=== PATIENT | male | born 1950 | race Caucasian/White ===

== ENCOUNTER 2018-08-03 16:05 | Inpatient (IN) | payer MEDICARE, OTHER ==
[~2018-08-03] VITALS: Ht 177.8 cm; Wt 83.7 kg
[~2018-08-03 16:05] MED LIST: PROPOFOL 10 MG/ML, 100ML IV ONE; PROPOFOL 10 MG/ML, 20ML ONE
--- NOTE | 2018-08-03 16:10 | NUR ---
ARRIVED BY CARE FLIGHT FROM THE SCENE POST ARREST AT APPOX 1430 W CPR STARTED RIGHT AWAY ALS CPR STARTED AT APPROX 1500 3 ROUNDS OF EPI PER ACLS THEN ROSC PT INTUBATED AND TRANSPORTED TO [facility] PT HAD BEEN HIKING WITH FAMILY NO CARDIAC HX NOTED ON ARRIVAL TO THE ED
[2018-08-03] MEDS ORDERED: SODIUM CHLORIDE 0.9% 1,000 ML IV ONE (16:18)
[2018-08-03] MEDS ORDERED: SODIUM CHLORIDE FLUSH 10ML SYR IVF ONE (16:30)
[2018-08-03] MEDS ORDERED: VECURONIUM 10 MG IVPush ONE (16:30)
[2018-08-03] MEDS ORDERED: VECURONIUM 10 MG ONE (16:39)
[2018-08-03 16:41] LABS: MEAN CORPUSCULAR HEMOGLOBIN 30.9 pg (27.5-34.5); MEAN CORPUSCULAR HGB CONC 33.4 g/dL (33.2-36.2); MEAN CORPUSCULAR VOLUME 92.7 fL (81-97); MEAN PLATELET VOLUME 8.2 fL (7.4-10.4); PLATELET COUNT 223 x10^3/uL (130-400); RED BLOOD COUNT 4.95 x10^6/uL (4.38-5.82); RED CELL DISTRIBUTION WIDTH 13.5 % (9.4-14.8)
[2018-08-03 16:49] LABS: INTERNATIONAL NORMALIZED RATIO 1.11 (0.93-1.1); PROTHROMBIN TIME 11.5 Seconds (9.6-11.5)
[2018-08-03 16:51] LABS: ALANINE AMINOTRANSFERASE 467 U/L (12-78); ALBUMIN 3.2 g/dL (3.4-5.0); ANION GAP 11 mmol/L (5-15); CALCIUM 7.7 mg/dL (8.5-10.1); CHLORIDE 114 mmol/L (98-107)
[2018-08-03 16:56] LABS: ALKALINE PHOSPHATASE 70 U/L (45-117); BILIRUBIN,TOTAL 0.7 mg/dL (0.2-1.0); CREATININE 1.24 mg/dL (0.7-1.3); TOTAL PROTEIN 5.7 g/dL (6.4-8.2)
[2018-08-03] MEDS ORDERED: ONDANSETRON ODT 4 MG PO PRN (17:00)
[2018-08-03] MEDS ORDERED: ACETAMINOPHEN 325 MG TABLET PO PRN (17:00)
[2018-08-03] MEDS ORDERED: LABETALOL 5MG/ML, 20ML IVPush PRN ×2 (17:00→18:30)
[2018-08-03] MEDS ORDERED: POLYETHYLENE GLYCOL 17 GM PACKET PO PRN (17:00)
[2018-08-03] MEDS ORDERED: morphine SULFATE 10 MG/ML, 1ML IVPush PRN (17:00)
[2018-08-03] MEDS ORDERED: ENALAPRILAT 1.25 MG/ML, 2ML IVPush PRN (17:00)
[2018-08-03] MEDS ORDERED: ENOXAPARIN 40 MG/0.4 ML SQ SCH (17:00)
[2018-08-03] MEDS ORDERED: PROPOFOL 10 MG/ML, 20ML IVPush ONE (17:00)
[2018-08-03] MEDS ORDERED: PROPOFOL 100 ML IV SCH (17:00)
[2018-08-03] MEDS ORDERED: ONDANSETRON 2MG/ML, 2ML IVPush PRN (17:00)
--- NOTE | 2018-08-03 17:00 | NUR ---
ERP TO THE BS ON PT ARRIVAL PT PLACED ON VENT ON ARRIVAL SLIGHT POSTURING NOTED MULTI IVS STARTED AND THE L LEG IO DCD TEMP GALLARDO AND NG PLACED
--- NOTE | 2018-08-03 17:00 | NUR ---
PT TAKEN TO CT AND TRANSPORTED TO THE CCU AT APPROX 1700 WITH RESP PT REMAINE D WITH ROSC THROUGHOUT
[2018-08-03 17:02] LABS: MD YES
[2018-08-03 17:04] LABS: <PLATELET ESTIMATE> ADEQUATE; <PLT MORPHOLOGY> NORMAL PLT MORPH; <RBC MORPHOLOGY> NORMAL; BAND#(MANUAL) 2.65 x10^3/uL; BANDS%(MANUAL) 12 % (0-7); EOS#(MANUAL) 0.22 x10^3/uL (0.0-0.4); EOS% (MANUAL) 1 % (1-7); LYMPH#(MANUAL) 1.33 x10^3/uL (1-3.4); LYMPHS% (MANUAL) 6 % (22-44); SEGS% (MANUAL) 81 % (42-75)
[2018-08-03 17:25] LABS: THYROID STIMULATING HORMONE 7.71 mIU/L (0.358-3.740)
[2018-08-03] MEDS ORDERED: VECURONIUM 50 MG in SODIUM CHLORIDE 0.9% 250 ML IV PRN (18:08)
[2018-08-03] MEDS: VECURONIUM 10 MG IVPush PRN (18:15)
[2018-08-03] MEDS ORDERED: PHARMACY MAY ADJ FOR RENAL FX MC SCH (18:30)
[2018-08-03] MEDS ORDERED: SODIUM CHLORIDE 0.9% 1,000 ML IV SCH (18:30)
[2018-08-03] MEDS ORDERED: LIDOCAINE-MPF 1%, 2ML ENDO PRN (18:30)
[2018-08-03] MEDS: SODIUM CHLORIDE 0.9% 1,000 ML IV SCH (18:53)
[2018-08-03] MEDS: KSCALE TO 4.0 IV SCH (20:00)
[2018-08-03] MEDS: AMPICILLIN/SULBACTAM 3 GM in SODIUM CHLORIDE 0.9% 100 ML IV SCH ×2 (20:20→23:41)
[2018-08-03] MEDS: BUSPIRONE 10 MG TABLET PO SCH (20:38)
[2018-08-03] MEDS: FAMOTIDINE 20 MG/2 ML IVPush SCH (21:10)
[2018-08-03] MEDS: PROPOFOL 100 ML IV PRN (21:29)
[2018-08-03] MEDS ORDERED: POTASSIUM CHLORIDE PMX 100 ML IV ONE (21:30)
[2018-08-03] MEDS: NOREPINEPHRINE 4 MG in SODIUM CHLORIDE 0.9% 246 ML IV PRN (21:43)
[2018-08-03] MEDS: CALCIUM CHLORIDE 13.6 MEQ in DEXTROSE 5% 100 ML IV PRN (22:36)
[2018-08-04] MEDS: FENTANYL PF 2,500 MCG in SODIUM CHLORIDE 0.9% 200 ML IV PRN (00:23)
[2018-08-04] MEDS: ARTIFICIAL TEARS OINT 3.5 GM EACHEYE SCH ×4 (00:24→20:22)
[2018-08-04] MEDS: NOREPINEPHRINE 4 MG in SODIUM CHLORIDE 0.9% 246 ML IV PRN (02:13)
[2018-08-04] MEDS: VECURONIUM 10 MG IVPush PRN ×5 (03:29→20:15)
[2018-08-04] MEDS: PROPOFOL 100 ML IV PRN ×5 (03:35→22:09)
[2018-08-04] MEDS: KSCALE TO 4.0 IV SCH ×6 (04:00→20:00)
[2018-08-04 04:17] LABS: MEAN CORPUSCULAR HEMOGLOBIN 31.3 pg (27.5-34.5); MEAN CORPUSCULAR VOLUME 92.1 fL (81-97); MEAN PLATELET VOLUME 8.4 fL (7.4-10.4); PLATELET COUNT 249 x10^3/uL (130-400); RED BLOOD COUNT 5.01 x10^6/uL (4.38-5.82); RED CELL DISTRIBUTION WIDTH 13.3 % (9.4-14.8)
[2018-08-04 04:25] LABS: MD YES
[2018-08-04 04:26] LABS: ALANINE AMINOTRANSFERASE 371 U/L (12-78); ALBUMIN 3.1 g/dL (3.4-5.0); ANION GAP 13 mmol/L (5-15); CALCIUM 8.3 mg/dL (8.5-10.1); CHLORIDE 115 mmol/L (98-107); CHOLESTEROL, TOTAL 139 mg/dL (140-239); CREATININE 0.88 mg/dL (0.7-1.3)
[2018-08-04 04:30] LABS: <PLATELET ESTIMATE> ADEQUATE; <RBC MORPHOLOGY> NORMAL; BAND#(MANUAL) 0.97 x10^3/uL; BANDS%(MANUAL) 7 % (0-7); LYMPH#(MANUAL) 1.93 x10^3/uL (1-3.4); LYMPHS% (MANUAL) 14 % (22-44); MONOS#(MANUAL) 0.97 x10^3/uL (0.3-2.7); MONOS% (MANUAL) 7 % (2-9); SEG#(MANUAL) 9.94 x10^3/uL (1.8-6.8); SEGS% (MANUAL) 72 % (42-75)
[2018-08-04 04:31] LABS: <PLT MORPHOLOGY> NORMAL PLT MORPH; ALKALINE PHOSPHATASE 56 U/L (45-117); BILIRUBIN,TOTAL 0.8 mg/dL (0.2-1.0); CHOL/HDL RATIO 3.6; HDL CHOL % 28 % (26-37); HDL CHOLESTEROL (DIRECT) 39 mg/dL (40-60); LDL CHOLESTEROL,CALCULATED 73 mg/dL (54-169); LDL/HDL RATIO 1.9 (0.5-3.0); TOTAL PROTEIN 5.6 g/dL (6.4-8.2); TRIGLYCERIDES 137 mg/dL (50-200); VLDL CHOLESTEROL 27 mg/dL (0-25)
[2018-08-04] MEDS: BUSPIRONE 10 MG TABLET PO SCH ×3 (04:36→20:22)
[2018-08-04] MEDS: AMPICILLIN/SULBACTAM 3 GM in SODIUM CHLORIDE 0.9% 100 ML IV SCH ×4 (04:55→23:17)
[2018-08-04] MEDS: SODIUM CHLORIDE 0.9% 1,000 ML IV SCH (05:47)
[2018-08-04] MEDS: CALCIUM CHLORIDE 13.6 MEQ in DEXTROSE 5% 100 ML IV PRN ×2 (05:47→23:16)
[2018-08-04] MEDS ORDERED: HEPARIN 25,000 UNITS/500ML PMX 500 ML IV PRN (08:00)
[2018-08-04] MEDS ORDERED: HEPARIN 5,000 UNITS/ML, 1ML IV ONE ×2 (08:00→09:00)
[2018-08-04] MEDS ORDERED: HEPARIN 5,000 UNITS/ML, 1ML IV PRN (08:00)
[2018-08-04] MEDS: SENNA/DOCUSATE TABLET PO SCH (08:41)
[2018-08-04] MEDS: FAMOTIDINE 20 MG/2 ML IVPush SCH ×2 (08:54→20:22)
[2018-08-04] MEDS: ASPIRIN 325 MG TABLET PO SCH (08:55)
[2018-08-04] MEDS: HEPARIN 25,000 UNITS/500ML PMX 500 ML IV PRN (08:58)
[2018-08-04] MEDS: SODIUM CHLORIDE 0.45% 1,000 ML IV SCH ×2 (08:59→22:15)
[2018-08-04] MEDS: NOREPINEPHRINE 8 MG in SODIUM CHLORIDE 0.9% 242 ML IV PRN ×3 (11:20→23:38)
[2018-08-04 12:10] LABS: HEMOGLOBIN A1C 6.1 % (4.2-6.3)
[2018-08-04 12:31] LABS: FREE T4 (FREE THYROXINE) 1.28 ng/dL (0.76-1.46)
[2018-08-04] MEDS ORDERED: VASOPRESSIN 100 UNIT in SODIUM CHLORIDE 0.9% 495 ML IV PRN (15:00)
[2018-08-04] MEDS ORDERED: SODIUM CHLORIDE 0.9%, 500ML IVBOLUS ONE ×3 (15:00→21:30)
[2018-08-04] MEDS: MAGNESIUM SULFATE 1 GM in SODIUM CHLORIDE 0.9% 50 ML IV PRN (17:21)
[2018-08-04] MEDS: ATORVASTATIN 40 MG TABLET PO SCH (20:22)
[2018-08-05] MEDS: VECURONIUM 10 MG IVPush PRN ×2 (00:18→06:44)
[2018-08-05] MEDS: KSCALE TO 4.0 IV SCH ×6 (00:21→20:00)
[2018-08-05] MEDS: MAGNESIUM SULFATE 1 GM in SODIUM CHLORIDE 0.9% 50 ML IV PRN (00:40)
[2018-08-05] MEDS: FENTANYL PF 2,500 MCG in SODIUM CHLORIDE 0.9% 200 ML IV PRN (00:54)
[2018-08-05] MEDS: PROPOFOL 100 ML IV PRN ×2 (01:53→05:37)
[2018-08-05] MEDS: BUSPIRONE 10 MG TABLET PO SCH ×4 (04:20→20:38)
[2018-08-05] MEDS: ARTIFICIAL TEARS OINT 3.5 GM EACHEYE SCH ×3 (04:20→20:00)
[2018-08-05] MEDS: AMPICILLIN/SULBACTAM 3 GM in SODIUM CHLORIDE 0.9% 100 ML IV SCH ×4 (04:21→23:48)
[2018-08-05 04:25] LABS: BASOPHILS % (AUTO) 0 % (0-1); EOSINOPHILS % (AUTO) 0 % (1-7); LYMPHOCYTES % (AUTO) 5 % (22-44); MD NO; MEAN CORPUSCULAR HEMOGLOBIN 31.5 pg (27.5-34.5); MEAN CORPUSCULAR HGB CONC 34.1 g/dL (33.2-36.2); MEAN CORPUSCULAR VOLUME 92.5 fL (81-97); MEAN PLATELET VOLUME 8.8 fL (7.4-10.4); MONOCYTES # (AUTO) 0.91 x10^3/uL (0.2-0.8); MONOCYTES % (AUTO) 8 % (2-9); NEUTROPHILS # (AUTO) 10.24 x10^3/uL (1.8-6.8); NEUTROPHILS % (AUTO) 87 % (42-75); PLATELET COUNT 203 x10^3/uL (130-400); RED BLOOD COUNT 4.77 x10^6/uL (4.38-5.82); RED CELL DISTRIBUTION WIDTH 13.3 % (9.4-14.8)
[2018-08-05 04:26] LABS: ANION GAP 11 mmol/L (5-15); CALCIUM 8.4 mg/dL (8.5-10.1); CHLORIDE 115 mmol/L (98-107)
[2018-08-05] MEDS: CALCIUM CHLORIDE 13.6 MEQ in DEXTROSE 5% 100 ML IV PRN (05:01)
[2018-08-05] MEDS: ASPIRIN 325 MG TABLET PO SCH (05:37)
[2018-08-05] MEDS: NOREPINEPHRINE 8 MG in SODIUM CHLORIDE 0.9% 242 ML IV PRN ×2 (05:38→11:52)
[2018-08-05] MEDS: SENNA/DOCUSATE TABLET PO SCH (08:47)
[2018-08-05] MEDS: FAMOTIDINE 20 MG/2 ML IVPush SCH ×2 (08:47→20:39)
[2018-08-05] MEDS: SODIUM ACETATE 75 MEQ in SODIUM CHLORIDE 0.45% 1,000 ML IV SCH ×2 (08:47→23:47)
[2018-08-05] MEDS: HEPARIN 25,000 UNITS/500ML PMX 500 ML IV PRN (11:55)
[2018-08-05] MEDS ORDERED: MAGNESIUM SULFATE 1 GM in SODIUM CHLORIDE 0.9% 50 ML IV ONE (13:30)
[2018-08-05] MEDS ORDERED: MAGNESIUM SULFATE PMX 1GM/100ML IVPB ONE (13:30)
[2018-08-05] MEDS: LORazepam 2 MG/ML, 1ML IVPush PRN ×2 (16:46→20:39)
[2018-08-05] MEDS: LIDODERM 5% PATCH TD SCH (17:04)
[2018-08-05] MEDS: FENTANYL PF 100 MCG/2ML IVPush PRN ×2 (18:11→22:36)
[2018-08-05] MEDS: OXYcodone IR 5MG TABLET PO PRN (19:46)
[2018-08-05] MEDS: ATORVASTATIN 40 MG TABLET PO SCH (20:39)
[2018-08-05] MEDS ORDERED: AMIODARONE 150 MG in DEXTROSE 5% 100 ML IV ONE (22:00)
[2018-08-05] MEDS ORDERED: SODIUM CHLORIDE 0.9%, 250ML IVBOLUS PRN (22:30)
[2018-08-05] MEDS: DEXMEDETOMIDINE 200 MCG in SODIUM CHLORIDE 0.9% 48 ML IV PRN (22:55)
[2018-08-06] MEDS ORDERED: AMIODARONE 150 MG in DEXTROSE 5% 100 ML IV ONE
[2018-08-06] MEDS: AMIODARONE 900 MG in DEXTROSE 5% 482 ML IV PRN ×2 (00:52→23:39)
[2018-08-06] MEDS: LORazepam 2 MG/ML, 1ML IVPush PRN (00:52)
[2018-08-06] MEDS: SODIUM ACETATE 75 MEQ in SODIUM CHLORIDE 0.45% 1,000 ML IV SCH (01:10)
[2018-08-06 04:29] LABS: BASOPHILS % (AUTO) 0 % (0-1); EOSINOPHILS % (AUTO) 0 % (1-7); LYMPHOCYTES # (AUTO) 0.35 x10^3/uL (1-3.4); LYMPHOCYTES % (AUTO) 4 % (22-44); MD NO; MEAN CORPUSCULAR HEMOGLOBIN 31.9 pg (27.5-34.5); MEAN CORPUSCULAR HGB CONC 34.5 g/dL (33.2-36.2); MEAN CORPUSCULAR VOLUME 92.3 fL (81-97); MEAN PLATELET VOLUME 9.2 fL (7.4-10.4); MONOCYTES # (AUTO) 0.32 x10^3/uL (0.2-0.8); MONOCYTES % (AUTO) 4 % (2-9); NEUTROPHILS # (AUTO) 7.68 x10^3/uL (1.8-6.8); NEUTROPHILS % (AUTO) 92 % (42-75); PLATELET COUNT 146 x10^3/uL (130-400); RED BLOOD COUNT 3.91 x10^6/uL (4.38-5.82); RED CELL DISTRIBUTION WIDTH 13.6 % (9.4-14.8)
[2018-08-06] MEDS ORDERED: SODIUM CHLORIDE 0.9%, 500ML IVBOLUS ONE (04:30)
[2018-08-06 04:39] LABS: ANION GAP 9 mmol/L (5-15); CALCIUM 7.8 mg/dL (8.5-10.1); CHLORIDE 113 mmol/L (98-107); TRIGLYCERIDES 91 mg/dL (50-200)
[2018-08-06] MEDS: ASPIRIN 325 MG TABLET PO SCH (05:12)
[2018-08-06] MEDS: AMPICILLIN/SULBACTAM 3 GM in SODIUM CHLORIDE 0.9% 100 ML IV SCH ×4 (05:12→23:06)
[2018-08-06] MEDS: HEPARIN 5,000 UNITS/ML, 1ML IV PRN ×3 (06:45→20:57)
[2018-08-06] MEDS ORDERED: FUROSEMIDE 20 MG/2 ML IV ONE (08:30)
[2018-08-06] MEDS: DEXMEDETOMIDINE 200 MCG in SODIUM CHLORIDE 0.9% 48 ML IV PRN (09:57)
[2018-08-06] MEDS: PANTOPRAZOLE 40 MG IV IVPush SCH (10:13)
[2018-08-06] MEDS: SENNA/DOCUSATE TABLET PO SCH (10:15)
[2018-08-06] MEDS: OXYcodone IR 5MG TABLET PO SCH ×3 (10:15→20:47)
[2018-08-06] MEDS: FENTANYL PF 100 MCG/2ML IVPush PRN ×3 (10:26→19:38)
[2018-08-06] MEDS ORDERED: MIDAZOLAM 1 MG/ML, 5ML ONE (11:31)
[2018-08-06] MEDS ORDERED: GADOBUTROL 10 MMOL/10 ML PFS ONE (12:48)
[2018-08-06] MEDS: HEPARIN 25,000 UNITS/500ML PMX 500 ML IV PRN (15:42)
[2018-08-06] MEDS: ATORVASTATIN 40 MG TABLET PO SCH (20:47)
[2018-08-06] MEDS: LIDODERM 5% PATCH TD SCH (20:51)
[2018-08-06] MEDS ORDERED: LORazepam 2 MG/ML, 1ML IVPush PRN (22:30)
[2018-08-06] MEDS ORDERED: FUROSEMIDE 40 MG/4 ML IV ONE (23:30)
[2018-08-06] MEDS ORDERED: FUROSEMIDE 40 MG/4 ML ONE (23:32)
[2018-08-07] MEDS ORDERED: MIDAZOLAM 1 MG/ML, 5ML ONE
[2018-08-07] MEDS ORDERED: PROPOFOL 10 MG/ML, 100ML IV ONE
[2018-08-07] MEDS ORDERED: ETOMIDATE 40 MG/20 ML ONE
[2018-08-07] MEDS: PROPOFOL 100 ML IV PRN ×2 (02:28→17:38)
[2018-08-07] MEDS: OXYcodone IR 5MG TABLET PO SCH ×2 (03:00→08:21)
[2018-08-07 03:58] LABS: BASOPHILS # (AUTO) 0.02 x10^3/uL (0-0.1); BASOPHILS % (AUTO) 0 % (0-1); EOSINOPHILS % (AUTO) 0 % (1-7); LYMPHOCYTES # (AUTO) 0.68 x10^3/uL (1-3.4); LYMPHOCYTES % (AUTO) 7 % (22-44); MD NO; MEAN CORPUSCULAR HEMOGLOBIN 31.8 pg (27.5-34.5); MEAN CORPUSCULAR HGB CONC 34.7 g/dL (33.2-36.2); MEAN CORPUSCULAR VOLUME 91.8 fL (81-97); MEAN PLATELET VOLUME 8.8 fL (7.4-10.4); MONOCYTES # (AUTO) 0.44 x10^3/uL (0.2-0.8); MONOCYTES % (AUTO) 4 % (2-9); NEUTROPHILS # (AUTO) 8.96 x10^3/uL (1.8-6.8); NEUTROPHILS % (AUTO) 89 % (42-75); PLATELET COUNT 167 x10^3/uL (130-400); RED BLOOD COUNT 3.84 x10^6/uL (4.38-5.82); RED CELL DISTRIBUTION WIDTH 13.8 % (9.4-14.8)
[2018-08-07 04:10] LABS: ALANINE AMINOTRANSFERASE 474 U/L (12-78); ALBUMIN 2.5 g/dL (3.4-5.0); ANION GAP 10 mmol/L (5-15); CALCIUM 7.9 mg/dL (8.5-10.1); CHLORIDE 109 mmol/L (98-107); CREATININE 1.11 mg/dL (0.7-1.3)
[2018-08-07 04:12] LABS: ALKALINE PHOSPHATASE 52 U/L (45-117); BILIRUBIN,TOTAL 1.3 mg/dL (0.2-1.0); TOTAL PROTEIN 5.3 g/dL (6.4-8.2)
[2018-08-07] MEDS: HEPARIN 5,000 UNITS/ML, 1ML IV PRN ×3 (04:30→18:20)
[2018-08-07] MEDS: AMPICILLIN/SULBACTAM 3 GM in SODIUM CHLORIDE 0.9% 100 ML IV SCH ×4 (04:51→23:33)
[2018-08-07] MEDS: ASPIRIN 325 MG TABLET PO SCH (06:28)
[2018-08-07] MEDS: KSCALE TO 4.0 IV SCH ×3 (07:30→19:30)
[2018-08-07] MEDS ORDERED: AMIODARONE 50 MG/ML, 3ML IVPush ONE (07:30)
[2018-08-07] MEDS ORDERED: AMIODARONE 150 MG in DEXTROSE 5% 100 ML IV ONE (08:00)
[2018-08-07] MEDS: FUROSEMIDE 20 MG/2 ML IV SCH ×2 (08:21→17:01)
[2018-08-07] MEDS: SENNA/DOCUSATE TABLET PO SCH (08:21)
[2018-08-07] MEDS: PANTOPRAZOLE 40 MG IV IVPush SCH (08:21)
[2018-08-07] MEDS ORDERED: POTASSIUM CHLORIDE PMX 100 ML IV ONE ×2 (09:00→15:30)
--- NOTE | 2018-08-07 09:39 | NUR ---
08/07 TF GOAL: w/ propofol: PROMOTE @ 70ML/HR off propofol: PROMOTE @ 80ML/HR
[2018-08-07] MEDS: HEPARIN 25,000 UNITS/500ML PMX 500 ML IV PRN (10:14)
[2018-08-07] MEDS: FENTANYL PF 100 MCG/2ML IVPush PRN ×7 (14:00→23:32)
[2018-08-07] MEDS: QUETIAPINE 25MG TABLET PO SCH ×2 (15:09→20:51)
[2018-08-07] MEDS: OXYcodone IR 5MG TABLET PO PRN (15:21)
[2018-08-07] MEDS: LIDODERM 5% PATCH TD SCH (19:55)
[2018-08-07] MEDS: ATORVASTATIN 40 MG TABLET PO SCH (20:50)
[2018-08-07] MEDS ORDERED: POTASSIUM CHLORIDE PMX 100 ML IVPB SCH (21:30)
[2018-08-08] MEDS: KSCALE TO 4.0 IV SCH ×4 (01:30→19:30)
[2018-08-08] MEDS: HEPARIN 25,000 UNITS/500ML PMX 500 ML IV PRN ×2 (02:18→15:53)
[2018-08-08] MEDS ORDERED: POTASSIUM CHLORIDE PMX 100 ML IV ONE ×4 (02:30→18:00)
[2018-08-08 04:51] LABS: BASOPHILS # (AUTO) 0.01 x10^3/uL (0-0.1); BASOPHILS % (AUTO) 0 % (0-1); EOSINOPHILS # (AUTO) 0.05 x10^3/uL (0-0.4); EOSINOPHILS % (AUTO) 1 % (1-7); LYMPHOCYTES # (AUTO) 0.76 x10^3/uL (1-3.4); LYMPHOCYTES % (AUTO) 9 % (22-44); MD NO; MEAN CORPUSCULAR HEMOGLOBIN 32.1 pg (27.5-34.5); MEAN CORPUSCULAR HGB CONC 34.6 g/dL (33.2-36.2); MEAN CORPUSCULAR VOLUME 92.7 fL (81-97); MEAN PLATELET VOLUME 8.7 fL (7.4-10.4); MONOCYTES # (AUTO) 0.73 x10^3/uL (0.2-0.8); MONOCYTES % (AUTO) 9 % (2-9); NEUTROPHILS # (AUTO) 6.79 x10^3/uL (1.8-6.8); NEUTROPHILS % (AUTO) 81 % (42-75); PLATELET COUNT 144 x10^3/uL (130-400); RED BLOOD COUNT 3.37 x10^6/uL (4.38-5.82); RED CELL DISTRIBUTION WIDTH 13.7 % (9.4-14.8)
[2018-08-08 05:06] LABS: CHLORIDE 109 mmol/L (98-107)
[2018-08-08 05:11] LABS: ALANINE AMINOTRANSFERASE 289 U/L (12-78); ALBUMIN 2.2 g/dL (3.4-5.0); ALKALINE PHOSPHATASE 46 U/L (45-117); ANION GAP 8 mmol/L (5-15); BILIRUBIN,TOTAL 1.2 mg/dL (0.2-1.0); CALCIUM 7.7 mg/dL (8.5-10.1); CREATININE 0.84 mg/dL (0.7-1.3); TOTAL PROTEIN 4.9 g/dL (6.4-8.2)
[2018-08-08] MEDS: AMPICILLIN/SULBACTAM 3 GM in SODIUM CHLORIDE 0.9% 100 ML IV SCH (05:15)
[2018-08-08] MEDS: PROPOFOL 100 ML IV PRN (05:43)
[2018-08-08] MEDS: ASPIRIN 325 MG TABLET PO SCH (05:43)
[2018-08-08] MEDS: FUROSEMIDE 20 MG/2 ML IV SCH ×2 (07:41→15:54)
[2018-08-08] MEDS: PANTOPRAZOLE 40 MG IV IVPush SCH (07:41)
[2018-08-08] MEDS: FILTER 0.22 MICRON FOR AMIODARONE IV PRN (07:42)
[2018-08-08] MEDS: SENNA/DOCUSATE TABLET PO SCH (07:42)
[2018-08-08] MEDS: HEPARIN 5,000 UNITS/ML, 1ML IV PRN (07:42)
[2018-08-08] MEDS: QUETIAPINE 25MG TABLET PO SCH ×2 (07:42→15:54)
[2018-08-08] MEDS: AMIODARONE 900 MG in DEXTROSE 5% 482 ML IV PRN (07:43)
[2018-08-08] MEDS ORDERED: POTASSIUM PHOSPHATE 44 MEQ in SODIUM CHLORIDE 0.9% 500 ML IV ONE (09:00)
[2018-08-08] MEDS: DEXMEDETOMIDINE 200 MCG in SODIUM CHLORIDE 0.9% 48 ML IV PRN ×3 (10:42→23:30)
[2018-08-08] MEDS: DIGOXIN 0.125 MG TABLET PO SCH (10:42)
[2018-08-08] MEDS: PIPERACILLIN/TAZO/PMX 3.375GM 50 ML IV SCH ×3 (11:38→23:27)
[2018-08-08] MEDS: FENTANYL PF 100 MCG/2ML IVPush PRN ×2 (12:03→15:55)
[2018-08-08] MEDS: OXYcodone IR 5MG TABLET PO PRN ×3 (12:04→20:45)
[2018-08-08] MEDS: LIDODERM 5% PATCH TD SCH (19:59)
[2018-08-08] MEDS: ATORVASTATIN 40 MG TABLET PO SCH (20:45)
[2018-08-09] MEDS: QUETIAPINE 25MG TABLET PO SCH ×3 (00:54→17:20)
[2018-08-09] MEDS: KSCALE TO 4.0 IV SCH ×3 (01:30→18:00)
[2018-08-09] MEDS ORDERED: POTASSIUM CHLORIDE PMX 100 ML IV ONE ×4 (02:00→19:30)
[2018-08-09] MEDS: OXYcodone IR 5MG TABLET PO PRN ×3 (02:30→21:01)
[2018-08-09 04:00] VITALS: BP 83/61
[2018-08-09] MEDS: PIPERACILLIN/TAZO/PMX 3.375GM 50 ML IV SCH ×4 (05:07→23:23)
[2018-08-09] MEDS: FENTANYL PF 100 MCG/2ML IVPush PRN (05:07)
[2018-08-09] MEDS: HEPARIN 25,000 UNITS/500ML PMX 500 ML IV PRN ×2 (05:16→17:22)
[2018-08-09 05:23] LABS: BASOPHILS # (AUTO) 0.01 x10^3/uL (0-0.1); BASOPHILS % (AUTO) 0 % (0-1); EOSINOPHILS # (AUTO) 0.14 x10^3/uL (0-0.4); EOSINOPHILS % (AUTO) 2 % (1-7); LYMPHOCYTES # (AUTO) 0.73 x10^3/uL (1-3.4); LYMPHOCYTES % (AUTO) 10 % (22-44); MD NO; MEAN CORPUSCULAR HEMOGLOBIN 30.7 pg (27.5-34.5); MEAN CORPUSCULAR VOLUME 92.9 fL (81-97); MONOCYTES # (AUTO) 0.87 x10^3/uL (0.2-0.8); MONOCYTES % (AUTO) 12 % (2-9); NEUTROPHILS # (AUTO) 5.33 x10^3/uL (1.8-6.8); NEUTROPHILS % (AUTO) 75 % (42-75); PLATELET COUNT 128 x10^3/uL (130-400); RED BLOOD COUNT 3.29 x10^6/uL (4.38-5.82); RED CELL DISTRIBUTION WIDTH 13.7 % (9.4-14.8)
[2018-08-09 05:34] LABS: ALANINE AMINOTRANSFERASE 330 U/L (12-78); ALBUMIN 2.1 g/dL (3.4-5.0); ANION GAP 7 mmol/L (5-15); CALCIUM 7.9 mg/dL (8.5-10.1); CHLORIDE 107 mmol/L (98-107); CREATININE 0.99 mg/dL (0.7-1.3)
[2018-08-09] MEDS: HEPARIN 5,000 UNITS/ML, 1ML IV PRN (05:38)
[2018-08-09 05:39] LABS: ALKALINE PHOSPHATASE 55 U/L (45-117); BILIRUBIN,TOTAL 1.3 mg/dL (0.2-1.0); TOTAL PROTEIN 4.9 g/dL (6.4-8.2)
[2018-08-09] MEDS: ASPIRIN 325 MG TABLET PO SCH (05:43)
[2018-08-09] MEDS: PANTOPRAZOLE 40 MG IV IVPush SCH (08:27)
[2018-08-09] MEDS: FUROSEMIDE 20 MG/2 ML IV SCH ×2 (08:27→17:20)
[2018-08-09] MEDS: DIGOXIN 0.125 MG TABLET PO SCH (08:28)
[2018-08-09] MEDS: SENNA/DOCUSATE TABLET PO SCH (08:28)
[2018-08-09] MEDS ORDERED: ALBUMIN HUMAN 25% 100 ML ONE (10:34)
[2018-08-09] MEDS ORDERED: FUROSEMIDE 20 MG/2 ML ONE (10:34)
[2018-08-09] MEDS: ALBUMIN HUMAN 25% 100 ML IV SCH (10:45)
[2018-08-09] MEDS: AMIODARONE 900 MG in DEXTROSE 5% 482 ML IV PRN (10:45)
[2018-08-09] MEDS: DEXMEDETOMIDINE 200 MCG in SODIUM CHLORIDE 0.9% 48 ML IV PRN (10:56)
[2018-08-09] MEDS ORDERED: ALBUMIN HUMAN 25% 12.5 GM/50 ML IV ONE (11:00)
[2018-08-09] MEDS ORDERED: ALBUMIN HUMAN 25% 100 ML IV ONE (11:00)
[2018-08-09] MEDS ORDERED: FUROSEMIDE 20 MG/2 ML IV ONE (11:30)
[2018-08-09] MEDS: LIDODERM 5% PATCH TD SCH (19:38)
[2018-08-09] MEDS: ATORVASTATIN 40 MG TABLET PO SCH (20:51)
[2018-08-10] MEDS: QUETIAPINE 25MG TABLET PO SCH ×3 (00:33→17:20)
[2018-08-10] MEDS: FENTANYL PF 100 MCG/2ML IVPush PRN (00:38)
[2018-08-10] MEDS ORDERED: POTASSIUM CHLORIDE PMX 100 ML IV ONE ×2 (01:00→06:00)
[2018-08-10] MEDS: PIPERACILLIN/TAZO/PMX 3.375GM 50 ML IV SCH ×4 (05:22→23:42)
[2018-08-10 05:30] LABS: ANION GAP 8 mmol/L (5-15); CALCIUM 8.3 mg/dL (8.5-10.1); CHLORIDE 104 mmol/L (98-107)
[2018-08-10 05:31] LABS: CREATININE 1.02 mg/dL (0.7-1.3); TRIGLYCERIDES 99 mg/dL (50-200)
[2018-08-10 05:35] LABS: BASOPHILS # (AUTO) 0.05 x10^3/uL (0-0.1); BASOPHILS % (AUTO) 1 % (0-1); EOSINOPHILS # (AUTO) 0.08 x10^3/uL (0-0.4); EOSINOPHILS % (AUTO) 1 % (1-7); LYMPHOCYTES # (AUTO) 0.61 x10^3/uL (1-3.4); LYMPHOCYTES % (AUTO) 7 % (22-44); MD NO; MEAN CORPUSCULAR HEMOGLOBIN 30.6 pg (27.5-34.5); MEAN CORPUSCULAR HGB CONC 32.9 g/dL (33.2-36.2); MEAN CORPUSCULAR VOLUME 93.2 fL (81-97); MEAN PLATELET VOLUME 8.8 fL (7.4-10.4); MONOCYTES # (AUTO) 1.17 x10^3/uL (0.2-0.8); MONOCYTES % (AUTO) 14 % (2-9); NEUTROPHILS # (AUTO) 6.37 x10^3/uL (1.8-6.8); NEUTROPHILS % (AUTO) 77 % (42-75); PLATELET COUNT 130 x10^3/uL (130-400); RED BLOOD COUNT 3.27 x10^6/uL (4.38-5.82); RED CELL DISTRIBUTION WIDTH 13.7 % (9.4-14.8)
[2018-08-10] MEDS: HEPARIN 25,000 UNITS/500ML PMX 500 ML IV PRN ×2 (05:48→17:23)
[2018-08-10] MEDS: HEPARIN 5,000 UNITS/ML, 1ML IV PRN (05:49)
[2018-08-10] MEDS: KSCALE TO 4.0 IV SCH ×2 (06:00)
[2018-08-10] MEDS: ASPIRIN 325 MG TABLET PO SCH (06:23)
[2018-08-10] MEDS: ALBUMIN HUMAN 25% 100 ML IV SCH ×2 (07:30→16:33)
[2018-08-10] MEDS: FUROSEMIDE 20 MG/2 ML IV SCH ×2 (08:06→17:19)
[2018-08-10] MEDS: PANTOPRAZOLE 40 MG IV IVPush SCH (08:06)
[2018-08-10] MEDS: SENNA/DOCUSATE TABLET PO SCH (08:06)
[2018-08-10] MEDS: DIGOXIN 0.125 MG TABLET PO SCH (08:07)
[2018-08-10] MEDS: CARVEDILOL 3.125 MG TABLET PO SCH ×2 (09:00→17:20)
--- NOTE | 2018-08-10 13:29 | NUR ---
[employer] Recommend: CHOPPED/ THINS -Straws OK -Small sips/ bites -Chin down -Up at 90 degrees -Float meds [place] sheet posted for diet recommendations Addendum: 08/10/18 at [address] Amended: Links added.
[2018-08-10] MEDS: AMIODARONE 900 MG in DEXTROSE 5% 482 ML IV PRN (15:37)
[2018-08-10] MEDS: LIDODERM 5% PATCH TD SCH (20:00)
[2018-08-10] MEDS: ATORVASTATIN 40 MG TABLET PO SCH (20:32)
[2018-08-11] MEDS: QUETIAPINE 25MG TABLET PO SCH (01:08)
[2018-08-11 04:24] LABS: BASOPHILS # (AUTO) 0.03 x10^3/uL (0-0.1); BASOPHILS % (AUTO) 0 % (0-1); EOSINOPHILS # (AUTO) 0.09 x10^3/uL (0-0.4); EOSINOPHILS % (AUTO) 1 % (1-7); LYMPHOCYTES # (AUTO) 0.53 x10^3/uL (1-3.4); LYMPHOCYTES % (AUTO) 5 % (22-44); MD NO; MEAN CORPUSCULAR HEMOGLOBIN 31.9 pg (27.5-34.5); MEAN CORPUSCULAR VOLUME 93.9 fL (81-97); MEAN PLATELET VOLUME 8.2 fL (7.4-10.4); MONOCYTES # (AUTO) 1.18 x10^3/uL (0.2-0.8); MONOCYTES % (AUTO) 11 % (2-9); NEUTROPHILS % (AUTO) 83 % (42-75); PLATELET COUNT 165 x10^3/uL (130-400); RED BLOOD COUNT 3.05 x10^6/uL (4.38-5.82); RED CELL DISTRIBUTION WIDTH 13.3 % (9.4-14.8)
[2018-08-11 04:35] LABS: ALANINE AMINOTRANSFERASE 368 U/L (12-78); ALBUMIN 2.8 g/dL (3.4-5.0); ANION GAP 5 mmol/L (5-15); CALCIUM 8.2 mg/dL (8.5-10.1); CHLORIDE 102 mmol/L (98-107); CREATININE 1.04 mg/dL (0.7-1.3)
[2018-08-11 04:38] LABS: ALKALINE PHOSPHATASE 46 U/L (45-117); BILIRUBIN,TOTAL 1.7 mg/dL (0.2-1.0); TOTAL PROTEIN 5.3 g/dL (6.4-8.2)
[2018-08-11] MEDS: HEPARIN 5,000 UNITS/ML, 1ML IV PRN (05:14)
[2018-08-11] MEDS: HEPARIN 25,000 UNITS/500ML PMX 500 ML IV PRN ×2 (05:14→16:38)
[2018-08-11] MEDS: PIPERACILLIN/TAZO/PMX 3.375GM 50 ML IV SCH ×3 (05:17→17:02)
[2018-08-11] MEDS: CARVEDILOL 3.125 MG TABLET PO SCH ×2 (05:23→17:01)
[2018-08-11] MEDS: ASPIRIN 325 MG TABLET PO SCH (05:23)
[2018-08-11] MEDS ORDERED: POTASSIUM CHLORIDE 10% 40 MEQ/30 ML UDC PO ONE (06:30)
[2018-08-11] MEDS: SENNA/DOCUSATE TABLET PO SCH (07:37)
[2018-08-11] MEDS: ALBUMIN HUMAN 25% 100 ML IV SCH ×2 (07:37→15:53)
[2018-08-11] MEDS: FUROSEMIDE 20 MG/2 ML IV SCH ×2 (08:53→17:02)
[2018-08-11] MEDS: DIGOXIN 0.125 MG TABLET PO SCH (08:54)
[2018-08-11] MEDS: PANTOPRAZOLE 40 MG IV IVPush SCH (08:54)
[2018-08-11] MEDS ORDERED: QUETIAPINE 25MG TABLET PO SCH (13:00)
[2018-08-11] MEDS ORDERED: DEXMEDETOMIDINE 1,000 MCG in SODIUM CHLORIDE 0.9% 240 ML IV PRN (15:30)
[2018-08-11] MEDS ORDERED: SODIUM CHLORIDE 0.9% 1,000ML IVBOLUS ONE ×2 (15:30→23:00)
[2018-08-11] MEDS: LIDODERM 5% PATCH TD SCH (20:00)
[2018-08-11] MEDS: ATORVASTATIN 40 MG TABLET PO SCH (20:15)
[2018-08-11] MEDS ORDERED: SODIUM CHLORIDE 0.9%, 500ML IVBOLUS ONE (22:00)
[2018-08-12] VITALS (15 sets, daily range): BP systolic 62–150; BP diastolic 20–85
[2018-08-12] MEDS: PIPERACILLIN/TAZO/PMX 3.375GM 50 ML IV SCH ×2 (00:14→05:42)
[2018-08-12] MEDS: AMIODARONE 900 MG in DEXTROSE 5% 482 ML IV PRN (00:15)
[2018-08-12] MEDS ORDERED: NOREPINEPHRINE 1 MG/ML, 4ML ONE (02:07)
[2018-08-12 02:45] LABS: MEAN CORPUSCULAR HEMOGLOBIN 31.4 pg (27.5-34.5); MEAN CORPUSCULAR HGB CONC 33.4 g/dL (33.2-36.2); MEAN CORPUSCULAR VOLUME 93.9 fL (81-97); MEAN PLATELET VOLUME 9.4 fL (7.4-10.4); PLATELET COUNT 170 x10^3/uL (130-400); RED BLOOD COUNT 1.67 x10^6/uL (4.38-5.82); RED CELL DISTRIBUTION WIDTH 13.7 % (9.4-14.8)
[2018-08-12 02:52] LABS: ALANINE AMINOTRANSFERASE 270 U/L (12-78); ALBUMIN 2.4 g/dL (3.4-5.0); ANION GAP 24 mmol/L (5-15); CALCIUM 7.1 mg/dL (8.5-10.1); CHLORIDE 103 mmol/L (98-107); CREATININE 1.78 mg/dL (0.7-1.3)
[2018-08-12 02:54] LABS: ALKALINE PHOSPHATASE 38 U/L (45-117); TOTAL PROTEIN 4.3 g/dL (6.4-8.2)
[2018-08-12] MEDS ORDERED: PROTAMINE SULFATE 10 MG/ML, 5ML IVPush ONE (03:00)
[2018-08-12 03:08] LABS: MD YES
[2018-08-12 03:10] LABS: ANISOCYTOSIS 1+; LYMPH#(MANUAL) 2.27 x10^3/uL (1-3.4); LYMPHS% (MANUAL) 16 % (22-44); MONOS#(MANUAL) 1.14 x10^3/uL (0.3-2.7); MONOS% (MANUAL) 8 % (2-9); POLYCHROMASIA 1+; SEG#(MANUAL) 10.79 x10^3/uL (1.8-6.8); SEGS% (MANUAL) 76 % (42-75)
[2018-08-12 03:11] LABS: <PLATELET ESTIMATE> ADEQUATE; <PLT MORPHOLOGY> NORMAL PLT MORPH; HYPOCHROMIA 1+
[2018-08-12] MEDS ORDERED: SODIUM BICARB 8.4%, 50ML SYRINGE ONE ×2 (03:12→04:05)
[2018-08-12 03:20] LABS: INTERNATIONAL NORMALIZED RATIO 2.02 (0.93-1.1); PROTHROMBIN TIME 20.8 Seconds (9.6-11.5)
[2018-08-12] MEDS ORDERED: PANTOPRAZOLE 40 MG IV IVPush ONE (03:30)
[2018-08-12] MEDS ORDERED: SENNOSIDES 8.8 MG/5 ML ORAL SOL NG PRN (03:30)
[2018-08-12] MEDS ORDERED: BISACODYL 10 MG SUPP PR PRN (03:30)
[2018-08-12] MEDS ORDERED: LACTULOSE 20 GM/30 ML UDC NG PRN (03:30)
[2018-08-12] MEDS ORDERED: LIDOCAINE-MPF 1%, 2ML ENDO PRN (03:30)
[2018-08-12] MEDS ORDERED: PHARMACY MAY ADJ FOR RENAL FX MC SCH (03:30)
[2018-08-12] MEDS ORDERED: SENNA/DOCUSATE TABLET NG PRN (03:30)
[2018-08-12 03:40] LABS: PARTIAL THROMBOPLASTIN TIME > 153 Seconds (25-31)
[2018-08-12] MEDS ORDERED: PROPOFOL 100 ML IV ONE ×2 (03:51→12:40)
[2018-08-12] MEDS ORDERED: VASOPRESSIN 50 UNIT in SODIUM CHLORIDE 0.9% 247.5 ML IV PRN (04:00)
[2018-08-12] MEDS ORDERED: EPINEPHRINE 2 MG in SODIUM CHLORIDE 0.9% 248 ML IV PRN (04:00)
[2018-08-12] MEDS ORDERED: SODIUM BICARB 8.4%, 50ML SYRINGE IVPush ONE (04:00)
[2018-08-12] MEDS ORDERED: VECURONIUM 10 MG ONE (04:09)
[2018-08-12] MEDS: FENTANYL PF 100 MCG/2ML IVPush PRN (04:12)
[2018-08-12] MEDS: PANTOPRAZOLE 80 MG in SODIUM CHLORIDE 0.9% 100 ML IV SCH ×2 (04:16→13:49)
[2018-08-12] MEDS: SODIUM BICARBONATE 8.4% 150 MEQ in DEXTROSE 5% 1,000 ML IV SCH ×3 (04:16→20:52)
[2018-08-12] MEDS ORDERED: FENTANYL PF 100 MCG/2ML IV ONE (04:30)
[2018-08-12] MEDS ORDERED: SODIUM BICARBONATE 1 MEQ/ML, 50ML VIAL IVPush ONE (04:30)
[2018-08-12] MEDS ORDERED: VECURONIUM 10 MG IVPush ONE (04:30)
[2018-08-12] MEDS ORDERED: FENTANYL PF 2,500 MCG in SODIUM CHLORIDE 0.9% 200 ML IV PRN (04:30)
[2018-08-12 04:35] LABS: ALBUMIN 2.1 g/dL (3.4-5.0); ANION GAP 23 mmol/L (5-15); CHLORIDE 103 mmol/L (98-107)
[2018-08-12 04:42] LABS: MEAN CORPUSCULAR HEMOGLOBIN 31.2 pg (27.5-34.5); MEAN CORPUSCULAR HGB CONC 33.9 g/dL (33.2-36.2); MEAN CORPUSCULAR VOLUME 91.9 fL (81-97); RED CELL DISTRIBUTION WIDTH 16.4 % (9.4-14.8)
[2018-08-12 04:43] LABS: CALCIUM 6.5 mg/dL (8.5-10.1)
[2018-08-12 04:44] LABS: ALANINE AMINOTRANSFERASE 938 U/L (12-78); ALKALINE PHOSPHATASE 47 U/L (45-117); BILIRUBIN,TOTAL 2.9 mg/dL (0.2-1.0); TOTAL PROTEIN 3.6 g/dL (6.4-8.2)
[2018-08-12] MEDS ORDERED: VECURONIUM 50 MG in SODIUM CHLORIDE 0.9% 250 ML IV PRN (05:00)
[2018-08-12] MEDS ORDERED: HEPARIN 1,000 UNITS/ML, 30ML ONE (05:28)
[2018-08-12] MEDS ORDERED: HEPARIN 1,000 UNITS/ML, 10ML ONE ×2 (05:28→05:29)
[2018-08-12] MEDS ORDERED: PROTAMINE SULFATE 10 MG/ML, 5ML ONE ×2 (05:29→06:46)
[2018-08-12] MEDS ORDERED: THROMBIN 5,000 UNIT VIAL TP ONE (05:30)
[2018-08-12] MEDS ORDERED: BACITRACIN 50,000 UNIT ONE (05:30)
[2018-08-12 05:46] LABS: MD YES; MEAN PLATELET VOLUME 9.4 fL (7.4-10.4); PLATELET COUNT 145 x10^3/uL (130-400)
[2018-08-12 05:51] LABS: BAND#(MANUAL) 0.39 x10^3/uL; BANDS%(MANUAL) 2 % (0-7); EOS#(MANUAL) 0.19 x10^3/uL (0.0-0.4); EOS% (MANUAL) 1 % (1-7); LYMPH#(MANUAL) 2.13 x10^3/uL (1-3.4); LYMPHS% (MANUAL) 11 % (22-44); METAMYELOCYTES# (MANUAL) 0.19 x10^3/uL (0-0); METAMYELOCYTES% (MANUAL) 1 % (0-1); MONOS#(MANUAL) 1.36 x10^3/uL (0.3-2.7); MONOS% (MANUAL) 7 % (2-9); NRBC % (MANUAL) 4 % (0-1); SEG#(MANUAL) 15.13 x10^3/uL (1.8-6.8); SEGS% (MANUAL) 78 % (42-75)
[2018-08-12 05:52] LABS: <PLATELET ESTIMATE> ADEQUATE; ANISOCYTOSIS 1+; GIANT PLATELETS 1+; LARGE PLATELETS 1+; POLYCHROMASIA 1+
[2018-08-12] MEDS: EPINEPHRINE 4 MG in SODIUM CHLORIDE 0.9% 246 ML IV PRN ×2 (05:57→22:43)
[2018-08-12 05:59] LABS: MEAN CORPUSCULAR HEMOGLOBIN 31.6 pg (27.5-34.5); MEAN CORPUSCULAR HGB CONC 35.4 g/dL (33.2-36.2); MEAN CORPUSCULAR VOLUME 89.2 fL (81-97); MEAN PLATELET VOLUME 9.2 fL (7.4-10.4); PLATELET COUNT 103 x10^3/uL (130-400); RED BLOOD COUNT 2.62 x10^6/uL (4.38-5.82); RED CELL DISTRIBUTION WIDTH 16.2 % (9.4-14.8)
[2018-08-12] MEDS ORDERED: CALCIUM GLUCONATE 4.6 MEQ in SODIUM CHLORIDE 0.9% 50 ML IV ONE (06:00)
[2018-08-12] MEDS: CARVEDILOL 3.125 MG TABLET PO SCH ×2 (06:00→17:11)
[2018-08-12] MEDS: ASPIRIN 325 MG TABLET PO SCH (06:00)
[2018-08-12] MEDS ORDERED: CALCIUM GLUCONATE 0.46MEQ/1ML IVPush ONE (06:00)
[2018-08-12 06:14] LABS: INTERNATIONAL NORMALIZED RATIO 1.58 (0.93-1.1); PROTHROMBIN TIME 16.5 Seconds (9.6-11.5)
[2018-08-12 06:29] LABS: MD YES
[2018-08-12 06:30] LABS: BAND#(MANUAL) 0.52 x10^3/uL; BANDS%(MANUAL) 3 % (0-7); LYMPHS% (MANUAL) 4 % (22-44)
[2018-08-12 06:31] LABS: ANISOCYTOSIS 1+; MONOS#(MANUAL) 1.04 x10^3/uL (0.3-2.7); MONOS% (MANUAL) 6 % (2-9); POLYCHROMASIA 1+; SEG#(MANUAL) 15.14 x10^3/uL (1.8-6.8); SEGS% (MANUAL) 87 % (42-75)
[2018-08-12 06:32] LABS: <PLATELET ESTIMATE> DECREASED; LARGE PLATELETS 1+
[2018-08-12] MEDS ORDERED: EPINEPHRINE 1 MG/ML, 1ML ONE (06:46)
[2018-08-12] MEDS ORDERED: DEXTROSE 5%, 250ML ONE (06:46)
[2018-08-12] MEDS ORDERED: VASOPRESSIN 20 UNIT/ML, 1ML ONE (06:46)
[2018-08-12] MEDS ORDERED: CODE BLUE RESPONSE XX ONE (06:46)
[2018-08-12] MEDS ORDERED: SODIUM CHLORIDE 0.9%, 250ML ONE (06:46)
[2018-08-12] MEDS ORDERED: EPINEPHRINE SYRINGE 0.1 MG/ML, 10ML ONE ×2 (06:46→10:35)
[2018-08-12] MEDS: ALBUMIN HUMAN 25% 100 ML IV SCH (07:00)
[2018-08-12] MEDS: SENNA/DOCUSATE TABLET PO SCH (09:00)
[2018-08-12] MEDS: DIGOXIN 0.125 MG TABLET PO SCH (09:00)
[2018-08-12] MEDS ORDERED: PANTOPROZOLE 40MG TABLET PO SCH (09:00)
[2018-08-12] MEDS ORDERED: ATROPINE SYRINGE 0.1 MG/ML, 10ML ONE (10:35)
[2018-08-12] MEDS ORDERED: ARTIFICIAL TEARS OINT 3.5 GM EACHEYE PRN (16:00)
[2018-08-12] MEDS ORDERED: SODIUM CHLORIDE 0.9% 1,000ML IVBOLUS ONE (19:00)
[2018-08-12] MEDS: LIDODERM 5% PATCH TD SCH (20:00)
[2018-08-13] MEDS ORDERED: PROPOFOL 100 ML IV ONE (00:05)
[2018-08-13] MEDS: PANTOPRAZOLE 80 MG in SODIUM CHLORIDE 0.9% 100 ML IV SCH (00:36)
[2018-08-13] MEDS: PROPOFOL 100 ML IV PRN ×2 (01:37→09:34)
[2018-08-13] MEDS: SODIUM BICARBONATE 8.4% 150 MEQ in DEXTROSE 5% 1,000 ML IV SCH (04:25)
[2018-08-13 04:35] LABS: ANION GAP 14 mmol/L (5-15); BASOPHILS # (AUTO) 0.05 x10^3/uL (0-0.1); BASOPHILS % (AUTO) 0 % (0-1); CALCIUM 6.6 mg/dL (8.5-10.1); CHLORIDE 96 mmol/L (98-107); EOSINOPHILS # (AUTO) 0.03 x10^3/uL (0-0.4); EOSINOPHILS % (AUTO) 0 % (1-7); LYMPHOCYTES # (AUTO) 0.58 x10^3/uL (1-3.4); LYMPHOCYTES % (AUTO) 4 % (22-44); MD NO; MEAN CORPUSCULAR HEMOGLOBIN 31.1 pg (27.5-34.5); MEAN CORPUSCULAR HGB CONC 35.1 g/dL (33.2-36.2); MEAN CORPUSCULAR VOLUME 88.6 fL (81-97); MEAN PLATELET VOLUME 9.5 fL (7.4-10.4); MONOCYTES % (AUTO) 3 % (2-9); NEUTROPHILS # (AUTO) 12.41 x10^3/uL (1.8-6.8); NEUTROPHILS % (AUTO) 92 % (42-75); PLATELET COUNT 115 x10^3/uL (130-400); RED BLOOD COUNT 3.51 x10^6/uL (4.38-5.82); RED CELL DISTRIBUTION WIDTH 16.4 % (9.4-14.8)
[2018-08-13 04:36] LABS: CREATININE 3.49 mg/dL (0.7-1.3)
[2018-08-13] MEDS: CARVEDILOL 3.125 MG TABLET PO SCH ×2 (06:00→18:03)
[2018-08-13] MEDS: ASPIRIN 325 MG TABLET PO SCH (06:00)
[2018-08-13] MEDS ORDERED: MAGNESIUM SULFATE PMX 2GM/50ML 50 ML IV ONE (08:00)
[2018-08-13] MEDS: CALCIUM CARBONATE 500 MG TAB.CHEW PO SCH ×2 (08:37→16:53)
[2018-08-13] MEDS: SENNA/DOCUSATE TABLET PO SCH (08:37)
[2018-08-13] MEDS: SODIUM CHLORIDE 0.9% 1,000 ML IV SCH (09:01)
[2018-08-13] MEDS ORDERED: NOREPINEPHRINE 1 MG/ML, 4ML ONE (09:37)
[2018-08-13] MEDS ORDERED: HEPARIN 1,000 UNITS/ML, 30ML ONE (09:39)
[2018-08-13 09:55] LABS: INTERNATIONAL NORMALIZED RATIO 1.39 (0.93-1.1); PROTHROMBIN TIME 14.5 Seconds (9.6-11.5)
[2018-08-13] MEDS ORDERED: THROMBIN 5,000 UNIT VIAL TP ONE ×3 (10:14→10:25)
[2018-08-13] MEDS ORDERED: ROCURONIUM 10MG/ML,5ML ONE ×2 (10:36)
[2018-08-13] MEDS ORDERED: CALCIUM CHLORIDE 10%, 10ML SYR ONE (10:37)
[2018-08-13] MEDS ORDERED: MIDAZOLAM 1 MG/ML, 2ML ONE (10:47)
[2018-08-13] MEDS ORDERED: FENTANYL PF 100 MCG/2ML ONE (10:47)
[2018-08-13 13:39] LABS: CALCIUM 6.7 mg/dL (8.5-10.1)
[2018-08-13 13:50] LABS: ABSOLUTE RETICS # 0.115 x10^6/uL (0.5-1.5); RED BLOOD COUNT 3.82 x10^6/uL (4.38-5.82); RETICULOCYTE COUNT % 3.02 % (0.5-1.5)
[2018-08-13] MEDS: FENTANYL PF 100 MCG/2ML IVPush PRN (22:51)
[2018-08-14] MEDS: CALCIUM CARBONATE 500 MG TAB.CHEW PO SCH ×3 (00:20→16:58)
[2018-08-14] MEDS: SODIUM CHLORIDE 0.9% 1,000 ML IV SCH ×2 (00:21→13:11)
[2018-08-14] MEDS: FENTANYL PF 100 MCG/2ML IVPush PRN ×3 (00:37→23:59)
[2018-08-14 04:44] LABS: BASOPHILS # (AUTO) 0.12 x10^3/uL (0-0.1); BASOPHILS % (AUTO) 1 % (0-1); EOSINOPHILS # (AUTO) 0.03 x10^3/uL (0-0.4); EOSINOPHILS % (AUTO) 0 % (1-7); LYMPHOCYTES # (AUTO) 0.44 x10^3/uL (1-3.4); LYMPHOCYTES % (AUTO) 3 % (22-44); MD NO; MEAN CORPUSCULAR HEMOGLOBIN 30.4 pg (27.5-34.5); MEAN CORPUSCULAR HGB CONC 33.8 g/dL (33.2-36.2); MEAN CORPUSCULAR VOLUME 89.7 fL (81-97); MEAN PLATELET VOLUME 9.7 fL (7.4-10.4); MONOCYTES # (AUTO) 0.88 x10^3/uL (0.2-0.8); MONOCYTES % (AUTO) 6 % (2-9); NEUTROPHILS # (AUTO) 14.28 x10^3/uL (1.8-6.8); NEUTROPHILS % (AUTO) 91 % (42-75); PLATELET COUNT 181 x10^3/uL (130-400); RED BLOOD COUNT 3.75 x10^6/uL (4.38-5.82); RED CELL DISTRIBUTION WIDTH 16.4 % (9.4-14.8)
[2018-08-14 04:45] LABS: ANION GAP 11 mmol/L (5-15); CALCIUM 6.5 mg/dL (8.5-10.1); CHLORIDE 103 mmol/L (98-107)
[2018-08-14 04:50] LABS: ALANINE AMINOTRANSFERASE 980 U/L (12-78); ALKALINE PHOSPHATASE 48 U/L (45-117); BILIRUBIN,TOTAL 2.8 mg/dL (0.2-1.0); CREATININE 4.28 mg/dL (0.7-1.3); TOTAL PROTEIN 4.2 g/dL (6.4-8.2)
[2018-08-14] MEDS: ASPIRIN 325 MG TABLET PO SCH (05:39)
[2018-08-14] MEDS: CARVEDILOL 3.125 MG TABLET PO SCH ×2 (05:44→16:58)
[2018-08-14] MEDS: SENNA/DOCUSATE TABLET PO SCH (09:14)
[2018-08-15] MEDS: SODIUM CHLORIDE 0.9% 1,000 ML IV SCH ×2 (02:22→15:00)
[2018-08-15 04:17] LABS: BASOPHILS # (AUTO) 0.17 x10^3/uL (0-0.1); BASOPHILS % (AUTO) 1 % (0-1); EOSINOPHILS # (AUTO) 0.03 x10^3/uL (0-0.4); EOSINOPHILS % (AUTO) 0 % (1-7); LYMPHOCYTES % (AUTO) 2 % (22-44); MD NO; MEAN CORPUSCULAR HEMOGLOBIN 30.5 pg (27.5-34.5); MEAN CORPUSCULAR VOLUME 89.8 fL (81-97); MONOCYTES # (AUTO) 1.14 x10^3/uL (0.2-0.8); MONOCYTES % (AUTO) 7 % (2-9); NEUTROPHILS # (AUTO) 15.58 x10^3/uL (1.8-6.8); NEUTROPHILS % (AUTO) 90 % (42-75); PLATELET COUNT 249 x10^3/uL (130-400); RED CELL DISTRIBUTION WIDTH 16.1 % (9.4-14.8)
[2018-08-15 04:28] LABS: ALANINE AMINOTRANSFERASE 764 U/L (12-78); ANION GAP 14 mmol/L (5-15); CALCIUM 7.6 mg/dL (8.5-10.1); CHLORIDE 102 mmol/L (98-107); CREATININE 4.97 mg/dL (0.7-1.3)
[2018-08-15 04:31] LABS: ALKALINE PHOSPHATASE 64 U/L (45-117); BILIRUBIN,TOTAL 2.9 mg/dL (0.2-1.0); TOTAL PROTEIN 4.7 g/dL (6.4-8.2); TRIGLYCERIDES 181 mg/dL (50-200)
[2018-08-15] MEDS: ASPIRIN 325 MG TABLET PO SCH (05:36)
[2018-08-15] MEDS: CARVEDILOL 3.125 MG TABLET PO SCH ×2 (05:37→18:37)
[2018-08-15] MEDS ORDERED: AMIODARONE 150 MG in DEXTROSE 5% 100 ML IV ONE (06:00)
[2018-08-15] MEDS: FILTER 0.22 MICRON FOR AMIODARONE IV PRN (06:00)
[2018-08-15] MEDS: AMIODARONE 900 MG in DEXTROSE 5% 482 ML IV PRN (06:00)
[2018-08-15 07:17] LABS: MICROSCOPIC INDICATED
[2018-08-15 07:31] LABS: CREATININE,URINE RANDOM 64.8 mg/dL
[2018-08-15] MEDS: SENNA/DOCUSATE TABLET PO SCH (09:33)
[2018-08-15] MEDS: CALCIUM CARBONATE 500 MG TAB.CHEW PO SCH ×4 (09:33→23:43)
[2018-08-15] MEDS: ERGOCALCIFEROL 50,000 UNIT CAPSULE PO SCH (15:03)
[2018-08-15] MEDS: OXYcodone IR 5MG TABLET PO PRN (20:31)
[2018-08-16] MEDS: SODIUM CHLORIDE 0.9% 1,000 ML IV SCH (04:18)
[2018-08-16] MEDS: AMIODARONE 900 MG in DEXTROSE 5% 482 ML IV PRN (04:18)
[2018-08-16] MEDS: FILTER 0.22 MICRON FOR AMIODARONE IV PRN (04:18)
[2018-08-16 04:54] LABS: BASOPHILS # (AUTO) 0.01 x10^3/uL (0-0.1); BASOPHILS % (AUTO) 0 % (0-1); EOSINOPHILS # (AUTO) 0.15 x10^3/uL (0-0.4); EOSINOPHILS % (AUTO) 1 % (1-7); LYMPHOCYTES # (AUTO) 0.54 x10^3/uL (1-3.4); LYMPHOCYTES % (AUTO) 4 % (22-44); MD NO; MEAN CORPUSCULAR HEMOGLOBIN 30.7 pg (27.5-34.5); MEAN CORPUSCULAR VOLUME 90.1 fL (81-97); MEAN PLATELET VOLUME 8.8 fL (7.4-10.4); MONOCYTES # (AUTO) 1.38 x10^3/uL (0.2-0.8); MONOCYTES % (AUTO) 9 % (2-9); NEUTROPHILS # (AUTO) 12.92 x10^3/uL (1.8-6.8); NEUTROPHILS % (AUTO) 86 % (42-75); PLATELET COUNT 285 x10^3/uL (130-400); RED BLOOD COUNT 3.73 x10^6/uL (4.38-5.82); RED CELL DISTRIBUTION WIDTH 15.8 % (9.4-14.8)
[2018-08-16 05:06] LABS: CHLORIDE 97 mmol/L (98-107)
[2018-08-16 05:15] LABS: ALANINE AMINOTRANSFERASE 454 U/L (12-78); ALKALINE PHOSPHATASE 60 U/L (45-117); ANION GAP 15 mmol/L (5-15); BILIRUBIN,TOTAL 2.8 mg/dL (0.2-1.0); CALCIUM 7.6 mg/dL (8.5-10.1); CREATININE 5.35 mg/dL (0.7-1.3); TOTAL PROTEIN 4.6 g/dL (6.4-8.2)
[2018-08-16] MEDS: ASPIRIN 325 MG TABLET PO SCH (06:06)
[2018-08-16] MEDS: SENNA/DOCUSATE TABLET PO SCH (08:17)
[2018-08-16] MEDS: CALCIUM CARBONATE 500 MG TAB.CHEW PO SCH (08:17)
[2018-08-16] MEDS: CARVEDILOL 3.125 MG TABLET PO SCH ×2 (09:49→18:01)
[2018-08-16] MEDS: CALCIUM CARBONATE 500 MG/5 ML PO SCH ×2 (11:00→16:35)
[2018-08-16] MEDS ORDERED: ALBUTEROL SULFATE 2.5 MG/3 ML NPPB SCH (12:00)
[2018-08-16] MEDS: AMIODARONE 200 MG TABLET PO SCH ×2 (13:44→20:53)
[2018-08-16] MEDS: ALBUTEROL SULFATE 2.5 MG/3 ML NPPB SCH (20:35)
[2018-08-17 08:06] LABS: BASOPHILS # (AUTO) 0.09 x10^3/uL (0-0.1); BASOPHILS % (AUTO) 1 % (0-1); EOSINOPHILS # (AUTO) 0.29 x10^3/uL (0-0.4); EOSINOPHILS % (AUTO) 2 % (1-7); LYMPHOCYTES # (AUTO) 0.54 x10^3/uL (1-3.4); LYMPHOCYTES % (AUTO) 4 % (22-44); MD NO; MEAN CORPUSCULAR HEMOGLOBIN 30.5 pg (27.5-34.5); MEAN CORPUSCULAR HGB CONC 33.9 g/dL (33.2-36.2); MEAN CORPUSCULAR VOLUME 89.7 fL (81-97); MEAN PLATELET VOLUME 8.5 fL (7.4-10.4); MONOCYTES # (AUTO) 1.28 x10^3/uL (0.2-0.8); MONOCYTES % (AUTO) 9 % (2-9); NEUTROPHILS # (AUTO) 11.94 x10^3/uL (1.8-6.8); NEUTROPHILS % (AUTO) 84 % (42-75); PLATELET COUNT 292 x10^3/uL (130-400); RED BLOOD COUNT 3.85 x10^6/uL (4.38-5.82); RED CELL DISTRIBUTION WIDTH 15.9 % (9.4-14.8)
[2018-08-17 08:16] LABS: CHLORIDE 96 mmol/L (98-107)
[2018-08-17 08:17] LABS: ALBUMIN 2.1 g/dL (3.4-5.0); ANION GAP 12 mmol/L (5-15); CALCIUM 7.8 mg/dL (8.5-10.1)
[2018-08-17 08:20] LABS: ALANINE AMINOTRANSFERASE 306 U/L (12-78); ALKALINE PHOSPHATASE 67 U/L (45-117); BILIRUBIN,TOTAL 2.5 mg/dL (0.2-1.0); CREATININE 5.65 mg/dL (0.7-1.3); TOTAL PROTEIN 4.9 g/dL (6.4-8.2)
[2018-08-17] MEDS: AMIODARONE 200 MG TABLET PO SCH ×2 (08:49→21:07)
[2018-08-17] MEDS: ASPIRIN 325 MG TABLET PO SCH (08:49)
[2018-08-17] MEDS: SENNA/DOCUSATE TABLET PO SCH (08:49)
[2018-08-17] MEDS: CARVEDILOL 3.125 MG TABLET PO SCH ×2 (08:49→17:50)
[2018-08-17] MEDS: CALCIUM CARBONATE 500 MG TAB.CHEW PO SCH ×3 (08:49→17:50)
[2018-08-17] MEDS: ALBUTEROL SULFATE 2.5 MG/3 ML NPPB SCH ×3 (10:45→21:09)
[2018-08-18 04:42] LABS: ANION GAP 11 mmol/L (5-15); CALCIUM 8.2 mg/dL (8.5-10.1); CHLORIDE 95 mmol/L (98-107)
[2018-08-18 05:31] LABS: BASOPHILS # (AUTO) 0.01 x10^3/uL (0-0.1); BASOPHILS % (AUTO) 0 % (0-1); EOSINOPHILS # (AUTO) 0.41 x10^3/uL (0-0.4); EOSINOPHILS % (AUTO) 3 % (1-7); LYMPHOCYTES # (AUTO) 0.47 x10^3/uL (1-3.4); LYMPHOCYTES % (AUTO) 4 % (22-44); MD NO; MEAN CORPUSCULAR HEMOGLOBIN 30.6 pg (27.5-34.5); MEAN CORPUSCULAR HGB CONC 33.8 g/dL (33.2-36.2); MEAN CORPUSCULAR VOLUME 90.3 fL (81-97); MEAN PLATELET VOLUME 8.7 fL (7.4-10.4); MONOCYTES # (AUTO) 1.26 x10^3/uL (0.2-0.8); MONOCYTES % (AUTO) 10 % (2-9); NEUTROPHILS # (AUTO) 10.21 x10^3/uL (1.8-6.8); NEUTROPHILS % (AUTO) 83 % (42-75); PLATELET COUNT 298 x10^3/uL (130-400); RED BLOOD COUNT 3.51 x10^6/uL (4.38-5.82); RED CELL DISTRIBUTION WIDTH 16.2 % (9.4-14.8)
[2018-08-18] MEDS: ASPIRIN 325 MG TABLET PO SCH (05:33)
[2018-08-18] MEDS: CARVEDILOL 3.125 MG TABLET PO SCH ×2 (05:33→17:45)
[2018-08-18] MEDS: SENNA/DOCUSATE TABLET PO SCH (08:44)
[2018-08-18] MEDS: CALCIUM CARBONATE 500 MG TAB.CHEW PO SCH ×3 (08:44→17:44)
[2018-08-18] MEDS: AMIODARONE 200 MG TABLET PO SCH (08:44)
[2018-08-18] MEDS: ALBUTEROL SULFATE 2.5 MG/3 ML NPPB SCH ×3 (09:00→20:00)
[2018-08-18] MEDS ORDERED: SENNOSIDES 8.6 MG TABLET PO SCH (10:30)
[2018-08-18] MEDS ORDERED: AMIODARONE 150 MG in DEXTROSE 5% 100 ML IV ONE (16:00)
[2018-08-18] MEDS: FILTER 0.22 MICRON FOR AMIODARONE IV PRN (16:12)
[2018-08-18] MEDS ORDERED: AMIODARONE 900 MG in DEXTROSE 5% 482 ML IV PRN (17:00)
[2018-08-18] MEDS: OXYcodone IR 5MG TABLET PO PRN (21:45)
[2018-08-19 04:04] LABS: BASOPHILS # (AUTO) 0.01 x10^3/uL (0-0.1); BASOPHILS % (AUTO) 0 % (0-1); EOSINOPHILS # (AUTO) 0.27 x10^3/uL (0-0.4); EOSINOPHILS % (AUTO) 2 % (1-7); LYMPHOCYTES # (AUTO) 0.46 x10^3/uL (1-3.4); LYMPHOCYTES % (AUTO) 4 % (22-44); MD NO; MEAN CORPUSCULAR HEMOGLOBIN 29.6 pg (27.5-34.5); MEAN CORPUSCULAR HGB CONC 33.3 g/dL (33.2-36.2); MEAN CORPUSCULAR VOLUME 88.9 fL (81-97); MEAN PLATELET VOLUME 8.4 fL (7.4-10.4); MONOCYTES # (AUTO) 1.18 x10^3/uL (0.2-0.8); MONOCYTES % (AUTO) 10 % (2-9); NEUTROPHILS # (AUTO) 9.93 x10^3/uL (1.8-6.8); NEUTROPHILS % (AUTO) 84 % (42-75); PLATELET COUNT 372 x10^3/uL (130-400); RED BLOOD COUNT 3.62 x10^6/uL (4.38-5.82)
[2018-08-19 04:16] LABS: ANION GAP 9 mmol/L (5-15); CALCIUM 7.9 mg/dL (8.5-10.1); CHLORIDE 95 mmol/L (98-107)
[2018-08-19 04:19] LABS: ALANINE AMINOTRANSFERASE 165 U/L (12-78); ALKALINE PHOSPHATASE 72 U/L (45-117); BILIRUBIN, DIRECT 1.3 mg/dL (0.1-0.2); BILIRUBIN,INDIRECT 0.7 mg/dL (0.0-2.0); CREATININE 6.14 mg/dL (0.7-1.3); TOTAL PROTEIN 4.6 g/dL (6.4-8.2)
[2018-08-19] MEDS: ASPIRIN 325 MG TABLET PO SCH (05:21)
[2018-08-19] MEDS: CARVEDILOL 3.125 MG TABLET PO SCH ×2 (05:22→21:24)
[2018-08-19] MEDS: ALBUTEROL SULFATE 2.5 MG/3 ML NPPB SCH ×2 (09:00→21:30)
[2018-08-19] MEDS: SENNA/DOCUSATE TABLET PO SCH (09:20)
[2018-08-19] MEDS: CALCIUM CARBONATE 500 MG TAB.CHEW PO SCH ×3 (09:20→16:37)
[2018-08-19] MEDS: ATORVASTATIN 40 MG TABLET PO SCH (21:24)
[2018-08-20] MEDS: OXYcodone IR 5MG TABLET PO PRN (03:17)
[2018-08-20] MEDS: DOCUSATE 100 MG CAPSULE PO PRN (03:21)
[2018-08-20 04:51] LABS: BASOPHILS # (AUTO) 0.01 x10^3/uL (0-0.1); BASOPHILS % (AUTO) 0 % (0-1); EOSINOPHILS # (AUTO) 0.12 x10^3/uL (0-0.4); EOSINOPHILS % (AUTO) 1 % (1-7); LYMPHOCYTES # (AUTO) 0.34 x10^3/uL (1-3.4); LYMPHOCYTES % (AUTO) 4 % (22-44); MD NO; MEAN CORPUSCULAR HEMOGLOBIN 30.8 pg (27.5-34.5); MEAN CORPUSCULAR HGB CONC 34.3 g/dL (33.2-36.2); MEAN CORPUSCULAR VOLUME 89.7 fL (81-97); MEAN PLATELET VOLUME 8.4 fL (7.4-10.4); MONOCYTES # (AUTO) 1.27 x10^3/uL (0.2-0.8); MONOCYTES % (AUTO) 13 % (2-9); NEUTROPHILS # (AUTO) 8.06 x10^3/uL (1.8-6.8); NEUTROPHILS % (AUTO) 82 % (42-75); PLATELET COUNT 406 x10^3/uL (130-400); RED BLOOD COUNT 3.54 x10^6/uL (4.38-5.82); RED CELL DISTRIBUTION WIDTH 16.5 % (9.4-14.8)
[2018-08-20] MEDS: ASPIRIN 325 MG TABLET PO SCH (04:51)
[2018-08-20] MEDS: CARVEDILOL 3.125 MG TABLET PO SCH ×2 (04:55→16:59)
[2018-08-20 05:06] LABS: ALBUMIN 2.1 g/dL (3.4-5.0); ANION GAP 9 mmol/L (5-15); CALCIUM 7.8 mg/dL (8.5-10.1); CHLORIDE 98 mmol/L (98-107)
[2018-08-20 05:09] LABS: ALANINE AMINOTRANSFERASE 137 U/L (12-78); ALKALINE PHOSPHATASE 81 U/L (45-117); BILIRUBIN,TOTAL 1.9 mg/dL (0.2-1.0); TOTAL PROTEIN 4.9 g/dL (6.4-8.2)
[2018-08-20] MEDS ORDERED: AMIODARONE 150 MG in DEXTROSE 5% 100 ML IV ONE ×2 (06:00→10:00)
[2018-08-20] MEDS ORDERED: FILTER 0.22 MICRON IV PRN (06:00)
[2018-08-20] MEDS: SENNA/DOCUSATE TABLET PO SCH (09:14)
[2018-08-20] MEDS: CALCIUM CARBONATE 500 MG TAB.CHEW PO SCH ×3 (09:14→16:59)
[2018-08-20] MEDS ORDERED: AMIODARONE 50 MG/ML, 3ML IVPush ONE (09:30)
[2018-08-20] MEDS: ALBUTEROL SULFATE 2.5 MG/3 ML NPPB SCH ×2 (10:56→20:41)
[2018-08-20] MEDS: AMIODARONE 900 MG in DEXTROSE 5% 482 ML IV PRN (17:00)
[2018-08-20] MEDS: ATORVASTATIN 40 MG TABLET PO SCH (20:56)
[2018-08-20] MEDS: MELATONIN 3 MG TABLET PO PRN (20:57)
[2018-08-21] MEDS: OXYcodone IR 5MG TABLET PO PRN (01:11)
[2018-08-21 05:26] LABS: MEAN CORPUSCULAR HEMOGLOBIN 30.8 pg (27.5-34.5); MEAN CORPUSCULAR HGB CONC 33.9 g/dL (33.2-36.2); MEAN CORPUSCULAR VOLUME 90.9 fL (81-97); MEAN PLATELET VOLUME 8.3 fL (7.4-10.4); PLATELET COUNT 438 x10^3/uL (130-400); RED BLOOD COUNT 3.44 x10^6/uL (4.38-5.82); RED CELL DISTRIBUTION WIDTH 16.5 % (9.4-14.8)
[2018-08-21 05:37] LABS: ANION GAP 11 mmol/L (5-15); CALCIUM 7.5 mg/dL (8.5-10.1); CHLORIDE 96 mmol/L (98-107)
[2018-08-21 05:40] LABS: CREATININE 6.95 mg/dL (0.7-1.3)
[2018-08-21 05:52] LABS: BASOPHILS # (AUTO) 0.02 x10^3/uL (0-0.1); BASOPHILS % (AUTO) 0 % (0-1); EOSINOPHILS # (AUTO) 0.58 x10^3/uL (0-0.4); EOSINOPHILS % (AUTO) 6 % (1-7); LYMPHOCYTES # (AUTO) 0.64 x10^3/uL (1-3.4); LYMPHOCYTES % (AUTO) 6 % (22-44); MD SCAN; MONOCYTES # (AUTO) 1.46 x10^3/uL (0.2-0.8); MONOCYTES % (AUTO) 14 % (2-9); NEUTROPHILS # (AUTO) 7.89 x10^3/uL (1.8-6.8); NEUTROPHILS % (AUTO) 75 % (42-75)
[2018-08-21] MEDS: CARVEDILOL 3.125 MG TABLET PO SCH ×2 (06:32→18:25)
[2018-08-21] MEDS: ASPIRIN 325 MG TABLET PO SCH (06:32)
[2018-08-21] MEDS: CALCIUM CARBONATE 500 MG TAB.CHEW PO SCH ×3 (08:00→18:25)
[2018-08-21] MEDS: SENNA/DOCUSATE TABLET PO SCH (09:00)
[2018-08-21] MEDS: ALBUTEROL SULFATE 2.5 MG/3 ML NPPB SCH ×2 (09:37→23:53)
[2018-08-21] MEDS: DOCUSATE 100 MG CAPSULE PO PRN (22:10)
[2018-08-21] MEDS: ATORVASTATIN 40 MG TABLET PO SCH (22:10)
[2018-08-22] MEDS: AMIODARONE 900 MG in DEXTROSE 5% 482 ML IV PRN (01:32)
[2018-08-22 05:13] LABS: BASOPHILS # (AUTO) 0.04 x10^3/uL (0-0.1); BASOPHILS % (AUTO) 0 % (0-1); EOSINOPHILS # (AUTO) 0.04 x10^3/uL (0-0.4); EOSINOPHILS % (AUTO) 0 % (1-7); LYMPHOCYTES # (AUTO) 0.44 x10^3/uL (1-3.4); LYMPHOCYTES % (AUTO) 5 % (22-44); MD NO; MEAN CORPUSCULAR HGB CONC 33.4 g/dL (33.2-36.2); MEAN CORPUSCULAR VOLUME 89.7 fL (81-97); MEAN PLATELET VOLUME 8.2 fL (7.4-10.4); MONOCYTES # (AUTO) 1.04 x10^3/uL (0.2-0.8); MONOCYTES % (AUTO) 12 % (2-9); NEUTROPHILS # (AUTO) 7.36 x10^3/uL (1.8-6.8); NEUTROPHILS % (AUTO) 83 % (42-75); PLATELET COUNT 504 x10^3/uL (130-400); RED BLOOD COUNT 3.63 x10^6/uL (4.38-5.82); RED CELL DISTRIBUTION WIDTH 16.3 % (9.4-14.8)
[2018-08-22 05:25] LABS: ANION GAP 10 mmol/L (5-15); CALCIUM 7.9 mg/dL (8.5-10.1); CHLORIDE 97 mmol/L (98-107); CREATININE 5.38 mg/dL (0.7-1.3)
[2018-08-22] MEDS: ASPIRIN 325 MG TABLET PO SCH (06:13)
[2018-08-22] MEDS: CARVEDILOL 3.125 MG TABLET PO SCH ×2 (06:13→17:55)
[2018-08-22] MEDS: CALCIUM CARBONATE 500 MG TAB.CHEW PO SCH (08:00)
[2018-08-22] MEDS: SENNA/DOCUSATE TABLET PO SCH (08:10)
[2018-08-22] MEDS: ACETYLCYSTEINE 600 MG CAPSULE PO SCH ×2 (09:00→21:23)
[2018-08-22] MEDS: ALBUTEROL SULFATE 2.5 MG/3 ML NPPB SCH ×2 (09:50→21:00)
[2018-08-22] MEDS ORDERED: BIVALIRUDIN 250 MG ONE (13:40)
[2018-08-22] MEDS ORDERED: TICAGRELOR 90 MG TABLET ONE (13:40)
[2018-08-22] MEDS ORDERED: HEPARIN 1,000 UNITS/ML, 10ML ONE (13:40)
[2018-08-22] MEDS ORDERED: FENTANYL PF 100 MCG/2ML ONE (13:40)
[2018-08-22] MEDS ORDERED: VERAPAMIL 2.5 MG/ML, 2ML ONE (13:40)
[2018-08-22] MEDS ORDERED: MIDAZOLAM 1 MG/ML, 5ML ONE (13:40)
[2018-08-22] MEDS ORDERED: DIPHENHYDRAMINE 50 MG/ML, 1ML ONE (13:50)
[2018-08-22] MEDS: ERGOCALCIFEROL 50,000 UNIT CAPSULE PO SCH (14:30)
[2018-08-22] MEDS: ATORVASTATIN 40 MG TABLET PO SCH (21:23)
[2018-08-22] MEDS: MELATONIN 3 MG TABLET PO PRN (21:23)
[2018-08-22] MEDS: DOCUSATE 100 MG CAPSULE PO PRN (21:23)
[2018-08-23 04:00] VITALS: BP 128/67
[2018-08-23 04:54] LABS: BASOPHILS # (AUTO) 0.09 x10^3/uL (0-0.1); BASOPHILS % (AUTO) 1 % (0-1); EOSINOPHILS # (AUTO) 0.12 x10^3/uL (0-0.4); EOSINOPHILS % (AUTO) 1 % (1-7); LYMPHOCYTES # (AUTO) 0.55 x10^3/uL (1-3.4); LYMPHOCYTES % (AUTO) 6 % (22-44); MD NO; MEAN CORPUSCULAR HGB CONC 33.2 g/dL (33.2-36.2); MEAN CORPUSCULAR VOLUME 90.4 fL (81-97); MONOCYTES # (AUTO) 1.21 x10^3/uL (0.2-0.8); MONOCYTES % (AUTO) 13 % (2-9); NEUTROPHILS # (AUTO) 7.12 x10^3/uL (1.8-6.8); NEUTROPHILS % (AUTO) 78 % (42-75); PLATELET COUNT 492 x10^3/uL (130-400); RED BLOOD COUNT 3.47 x10^6/uL (4.38-5.82); RED CELL DISTRIBUTION WIDTH 16.3 % (9.4-14.8)
[2018-08-23 04:58] LABS: ANION GAP 7 mmol/L (5-15); CALCIUM 7.4 mg/dL (8.5-10.1); CHLORIDE 100 mmol/L (98-107); CREATININE 5.07 mg/dL (0.7-1.3)
[2018-08-23] MEDS: CARVEDILOL 3.125 MG TABLET PO SCH ×2 (05:02→18:24)
[2018-08-23] MEDS: ASPIRIN 325 MG TABLET PO SCH (05:02)
[2018-08-23] MEDS ORDERED: HEPARIN 25,000 UNITS/500ML PMX 500 ML IV PRN (09:00)
[2018-08-23] MEDS ORDERED: HEPARIN wt. based STROKE protocol MC PRN (09:00)
[2018-08-23] MEDS: AMIODARONE 900 MG in DEXTROSE 5% 482 ML IV PRN (09:09)
[2018-08-23] MEDS: ALBUTEROL SULFATE 2.5 MG/3 ML NPPB SCH ×2 (09:28→21:00)
[2018-08-23] MEDS: SENNA/DOCUSATE TABLET PO SCH (09:40)
[2018-08-23] MEDS: ACETYLCYSTEINE 600 MG CAPSULE PO SCH ×2 (09:40→21:59)
[2018-08-23 13:06] LABS: OCCULT BLOOD POSITIVE (NEGATIVE)
[2018-08-23 13:06] LABS: OCCULT BLOOD NEGATIVE (NEGATIVE)
[2018-08-23 14:09] LABS: OCCULT BLOOD POSITIVE (NEGATIVE)
[2018-08-23] MEDS: MOVIPREP POWDER 1 PREP KIT PO SCH ×2 (16:18→22:00)
[2018-08-23] MEDS: ATORVASTATIN 40 MG TABLET PO SCH (21:59)
[2018-08-24 05:11] LABS: BASOPHILS # (AUTO) 0.03 x10^3/uL (0-0.1); BASOPHILS % (AUTO) 0 % (0-1); EOSINOPHILS # (AUTO) 0.24 x10^3/uL (0-0.4); EOSINOPHILS % (AUTO) 2 % (1-7); LYMPHOCYTES # (AUTO) 0.73 x10^3/uL (1-3.4); LYMPHOCYTES % (AUTO) 6 % (22-44); MD NO; MEAN CORPUSCULAR HEMOGLOBIN 30.9 pg (27.5-34.5); MEAN CORPUSCULAR HGB CONC 33.9 g/dL (33.2-36.2); MEAN CORPUSCULAR VOLUME 91.2 fL (81-97); MEAN PLATELET VOLUME 7.9 fL (7.4-10.4); MONOCYTES % (AUTO) 9 % (2-9); NEUTROPHILS # (AUTO) 10.72 x10^3/uL (1.8-6.8); NEUTROPHILS % (AUTO) 83 % (42-75); PLATELET COUNT 500 x10^3/uL (130-400); RED BLOOD COUNT 3.64 x10^6/uL (4.38-5.82)
[2018-08-24 05:17] LABS: ANION GAP 10 mmol/L (5-15); CALCIUM 8.4 mg/dL (8.5-10.1); CHLORIDE 101 mmol/L (98-107)
[2018-08-24] MEDS: ASPIRIN 325 MG TABLET PO SCH (05:54)
[2018-08-24] MEDS: CARVEDILOL 3.125 MG TABLET PO SCH ×2 (05:54→20:37)
[2018-08-24] MEDS: ALBUTEROL SULFATE 2.5 MG/3 ML NPPB SCH ×2 (09:00→21:00)
[2018-08-24] MEDS: ACETYLCYSTEINE 600 MG CAPSULE PO SCH ×2 (09:00→20:37)
[2018-08-24] MEDS ORDERED: PROPOFOL 10 MG/ML, 50ML ONE (10:42)
[2018-08-24] MEDS ORDERED: PROPOFOL 10 MG/ML, 20ML ONE (10:42)
[2018-08-24] MEDS: AMIODARONE 900 MG in DEXTROSE 5% 482 ML IV PRN (19:45)
[2018-08-24] MEDS: POLYETHYLENE GLYCOL 17 GM PACKET PO SCH (20:37)
[2018-08-24] MEDS: ATORVASTATIN 40 MG TABLET PO SCH (20:37)
[2018-08-25 05:22] LABS: BASOPHILS # (AUTO) 0.06 x10^3/uL (0-0.1); BASOPHILS % (AUTO) 1 % (0-1); EOSINOPHILS # (AUTO) 0.05 x10^3/uL (0-0.4); EOSINOPHILS % (AUTO) 1 % (1-7); LYMPHOCYTES # (AUTO) 0.79 x10^3/uL (1-3.4); LYMPHOCYTES % (AUTO) 9 % (22-44); MD NO; MEAN CORPUSCULAR HEMOGLOBIN 30.6 pg (27.5-34.5); MEAN CORPUSCULAR HGB CONC 33.7 g/dL (33.2-36.2); MEAN CORPUSCULAR VOLUME 90.8 fL (81-97); MEAN PLATELET VOLUME 8.1 fL (7.4-10.4); MONOCYTES # (AUTO) 0.98 x10^3/uL (0.2-0.8); MONOCYTES % (AUTO) 11 % (2-9); NEUTROPHILS # (AUTO) 7.17 x10^3/uL (1.8-6.8); NEUTROPHILS % (AUTO) 79 % (42-75); PLATELET COUNT 419 x10^3/uL (130-400); RED BLOOD COUNT 3.34 x10^6/uL (4.38-5.82); RED CELL DISTRIBUTION WIDTH 16.2 % (9.4-14.8)
[2018-08-25 05:38] LABS: CHLORIDE 100 mmol/L (98-107)
[2018-08-25 05:45] LABS: CALCIUM 7.9 mg/dL (8.5-10.1); CREATININE 4.63 mg/dL (0.7-1.3)
[2018-08-25] MEDS: CARVEDILOL 3.125 MG TABLET PO SCH ×2 (06:17→18:22)
[2018-08-25] MEDS: ASPIRIN 325 MG TABLET PO SCH (06:17)
[2018-08-25 06:28] LABS: ANION GAP 9 mmol/L (5-15)
[2018-08-25] MEDS: ALBUTEROL SULFATE 2.5 MG/3 ML NPPB SCH (07:04)
[2018-08-25] MEDS ORDERED: HEPARIN 5,000 UNITS/ML, 1ML IV ONE (07:30)
[2018-08-25] MEDS: ACETYLCYSTEINE 600 MG CAPSULE PO SCH ×2 (09:12→21:00)
[2018-08-25] MEDS: POLYETHYLENE GLYCOL 17 GM PACKET PO SCH ×2 (09:12→21:05)
[2018-08-25] MEDS: AMIODARONE 200 MG TABLET PO SCH ×2 (09:12→21:06)
[2018-08-25] MEDS: HEPARIN 25,000 UNITS/500ML PMX 500 ML IV PRN (09:18)
[2018-08-25] MEDS: SIMETHICONE 80 MG CHEW TAB PO PRN (13:48)
[2018-08-25] MEDS: HEPARIN 5,000 UNITS/ML, 1ML IV PRN ×2 (15:33→22:01)
[2018-08-25] MEDS: TEMAZEPAM 15 MG CAPSULE PO PRN (21:06)
[2018-08-25] MEDS: ATORVASTATIN 40 MG TABLET PO SCH (21:06)
[2018-08-26 04:28] LABS: BASOPHILS # (AUTO) 0.06 x10^3/uL (0-0.1); BASOPHILS % (AUTO) 1 % (0-1); EOSINOPHILS # (AUTO) 0.15 x10^3/uL (0-0.4); EOSINOPHILS % (AUTO) 1 % (1-7); LYMPHOCYTES # (AUTO) 0.94 x10^3/uL (1-3.4); LYMPHOCYTES % (AUTO) 9 % (22-44); MD NO; MEAN CORPUSCULAR HEMOGLOBIN 30.5 pg (27.5-34.5); MEAN CORPUSCULAR HGB CONC 33.5 g/dL (33.2-36.2); MEAN PLATELET VOLUME 8.4 fL (7.4-10.4); MONOCYTES # (AUTO) 0.93 x10^3/uL (0.2-0.8); MONOCYTES % (AUTO) 9 % (2-9); NEUTROPHILS % (AUTO) 80 % (42-75); PLATELET COUNT 431 x10^3/uL (130-400); RED BLOOD COUNT 3.39 x10^6/uL (4.38-5.82)
[2018-08-26 04:36] LABS: ANION GAP 11 mmol/L (5-15); CALCIUM 7.8 mg/dL (8.5-10.1); CHLORIDE 97 mmol/L (98-107); CREATININE 6.01 mg/dL (0.7-1.3)
[2018-08-26] MEDS: HEPARIN 5,000 UNITS/ML, 1ML IV PRN ×2 (05:06→11:22)
[2018-08-26] MEDS: CARVEDILOL 3.125 MG TABLET PO SCH ×2 (06:07→18:15)
[2018-08-26] MEDS: ASPIRIN 325 MG TABLET PO SCH (06:07)
[2018-08-26] MEDS: HEPARIN 25,000 UNITS/500ML PMX 500 ML IV PRN ×2 (06:32→23:20)
[2018-08-26] MEDS: AMIODARONE 200 MG TABLET PO SCH ×2 (08:09→20:58)
[2018-08-26] MEDS: POLYETHYLENE GLYCOL 17 GM PACKET PO SCH ×2 (08:10→20:58)
[2018-08-26] MEDS: ACETYLCYSTEINE 600 MG CAPSULE PO SCH (08:10)
[2018-08-26] MEDS: SIMETHICONE 80 MG CHEW TAB PO PRN (20:58)
[2018-08-26] MEDS: ATORVASTATIN 40 MG TABLET PO SCH (20:58)
[2018-08-26] MEDS: TEMAZEPAM 15 MG CAPSULE PO PRN (22:23)
[2018-08-27] MEDS: HEPARIN 5,000 UNITS/ML, 1ML IV PRN (00:59)
[2018-08-27] MEDS: ASPIRIN 325 MG TABLET PO SCH (04:55)
[2018-08-27] MEDS: CARVEDILOL 3.125 MG TABLET PO SCH ×2 (04:56→17:29)
[2018-08-27 05:15] LABS: BASOPHILS # (AUTO) 0.05 x10^3/uL (0-0.1); BASOPHILS % (AUTO) 1 % (0-1); EOSINOPHILS # (AUTO) 0.09 x10^3/uL (0-0.4); EOSINOPHILS % (AUTO) 1 % (1-7); LYMPHOCYTES # (AUTO) 1.03 x10^3/uL (1-3.4); LYMPHOCYTES % (AUTO) 12 % (22-44); MD NO; MEAN CORPUSCULAR HEMOGLOBIN 30.5 pg (27.5-34.5); MEAN CORPUSCULAR HGB CONC 34.1 g/dL (33.2-36.2); MEAN CORPUSCULAR VOLUME 89.5 fL (81-97); MONOCYTES # (AUTO) 0.83 x10^3/uL (0.2-0.8); MONOCYTES % (AUTO) 9 % (2-9); NEUTROPHILS # (AUTO) 6.97 x10^3/uL (1.8-6.8); NEUTROPHILS % (AUTO) 78 % (42-75); PLATELET COUNT 421 x10^3/uL (130-400); RED CELL DISTRIBUTION WIDTH 15.6 % (9.4-14.8)
[2018-08-27 05:25] LABS: INTERNATIONAL NORMALIZED RATIO 1.29 (0.93-1.1); PROTHROMBIN TIME 13.5 Seconds (9.6-11.5)
[2018-08-27 05:30] LABS: ALANINE AMINOTRANSFERASE 46 U/L (12-78); ALBUMIN 2.4 g/dL (3.4-5.0); ANION GAP 11 mmol/L (5-15); CALCIUM 7.7 mg/dL (8.5-10.1); CHLORIDE 101 mmol/L (98-107)
[2018-08-27 05:39] LABS: ALKALINE PHOSPHATASE 68 U/L (45-117); CREATININE 5.22 mg/dL (0.7-1.3); FREE T4 (FREE THYROXINE) 1.11 ng/dL (0.76-1.46); TOTAL PROTEIN 5.3 g/dL (6.4-8.2)
[2018-08-27] MEDS: POLYETHYLENE GLYCOL 17 GM PACKET PO SCH ×2 (08:33→21:01)
[2018-08-27] MEDS: AMIODARONE 200 MG TABLET PO SCH ×2 (09:32→21:01)
[2018-08-27] MEDS ORDERED: LIDOCAINE/PF 1%, 30ML ONE (10:41)
[2018-08-27] MEDS ORDERED: MIDAZOLAM 1 MG/ML, 5ML ONE (10:54)
[2018-08-27] MEDS ORDERED: FENTANYL PF 100 MCG/2ML ONE (10:54)
[2018-08-27] MEDS ORDERED: NALOXONE 1 MG/ML, 2ML ONE (10:55)
[2018-08-27] MEDS ORDERED: FLUMAZENIL 0.1 MG/1 ML, 5ML ONE (10:55)
[2018-08-27] MEDS ORDERED: CEFAZOLIN PMX 1GM/50ML 50 ML ONE (11:02)
[2018-08-27] MEDS: LEVOTHYROXINE 50 MCG TABLET PO SCH (11:49)
[2018-08-27] MEDS ORDERED: FUROSEMIDE 40 MG/4 ML ONE (15:59)
[2018-08-27] MEDS: ATORVASTATIN 40 MG TABLET PO SCH (21:01)
[2018-08-27] MEDS: TEMAZEPAM 15 MG CAPSULE PO PRN (21:01)
[2018-08-28] MEDS: LEVOTHYROXINE 50 MCG TABLET PO SCH (05:38)
[2018-08-28] MEDS: ASPIRIN 325 MG TABLET PO SCH (05:38)
[2018-08-28] MEDS: CARVEDILOL 3.125 MG TABLET PO SCH ×2 (05:39→20:27)
[2018-08-28] MEDS: POLYETHYLENE GLYCOL 17 GM PACKET PO SCH ×2 (07:42→20:28)
[2018-08-28] MEDS: AMIODARONE 200 MG TABLET PO SCH ×2 (07:42→20:28)
[2018-08-28 07:57] LABS: BASOPHILS # (AUTO) 0.02 x10^3/uL (0-0.1); BASOPHILS % (AUTO) 0 % (0-1); EOSINOPHILS # (AUTO) 0.15 x10^3/uL (0-0.4); EOSINOPHILS % (AUTO) 2 % (1-7); LYMPHOCYTES # (AUTO) 0.73 x10^3/uL (1-3.4); LYMPHOCYTES % (AUTO) 8 % (22-44); MD NO; MEAN CORPUSCULAR HEMOGLOBIN 29.6 pg (27.5-34.5); MEAN CORPUSCULAR HGB CONC 32.9 g/dL (33.2-36.2); MEAN CORPUSCULAR VOLUME 89.8 fL (81-97); MEAN PLATELET VOLUME 7.8 fL (7.4-10.4); MONOCYTES # (AUTO) 0.74 x10^3/uL (0.2-0.8); MONOCYTES % (AUTO) 8 % (2-9); NEUTROPHILS # (AUTO) 7.15 x10^3/uL (1.8-6.8); NEUTROPHILS % (AUTO) 81 % (42-75); PLATELET COUNT 378 x10^3/uL (130-400); RED BLOOD COUNT 3.52 x10^6/uL (4.38-5.82); RED CELL DISTRIBUTION WIDTH 15.9 % (9.4-14.8)
[2018-08-28 08:07] LABS: ALANINE AMINOTRANSFERASE 41 U/L (12-78); ALBUMIN 2.7 g/dL (3.4-5.0); ANION GAP 12 mmol/L (5-15); CALCIUM 7.9 mg/dL (8.5-10.1); CHLORIDE 101 mmol/L (98-107); CREATININE 6.62 mg/dL (0.7-1.3)
[2018-08-28 08:10] LABS: ALKALINE PHOSPHATASE 75 U/L (45-117); BILIRUBIN,TOTAL 0.9 mg/dL (0.2-1.0); TOTAL PROTEIN 5.6 g/dL (6.4-8.2)
[2018-08-28] MEDS: HEPARIN 25,000 UNITS/500ML PMX 500 ML IV PRN (08:10)
[2018-08-28] MEDS: HEPARIN 5,000 UNITS/ML, 1ML IV PRN ×2 (15:01→22:35)
[2018-08-28] MEDS: TEMAZEPAM 15 MG CAPSULE PO PRN (20:27)
[2018-08-28] MEDS: ATORVASTATIN 40 MG TABLET PO SCH (20:27)
[2018-08-29] MEDS: HEPARIN 25,000 UNITS/500ML PMX 500 ML IV PRN (02:41)
[2018-08-29 04:36] LABS: BASOPHILS # (AUTO) 0.04 x10^3/uL (0-0.1); BASOPHILS % (AUTO) 0 % (0-1); EOSINOPHILS # (AUTO) 0.14 x10^3/uL (0-0.4); EOSINOPHILS % (AUTO) 2 % (1-7); LYMPHOCYTES # (AUTO) 0.87 x10^3/uL (1-3.4); LYMPHOCYTES % (AUTO) 9 % (22-44); MD NO; MEAN CORPUSCULAR HEMOGLOBIN 30.2 pg (27.5-34.5); MEAN CORPUSCULAR HGB CONC 33.4 g/dL (33.2-36.2); MEAN CORPUSCULAR VOLUME 90.2 fL (81-97); MEAN PLATELET VOLUME 8.5 fL (7.4-10.4); MONOCYTES # (AUTO) 0.93 x10^3/uL (0.2-0.8); MONOCYTES % (AUTO) 10 % (2-9); NEUTROPHILS # (AUTO) 7.49 x10^3/uL (1.8-6.8); NEUTROPHILS % (AUTO) 79 % (42-75); PLATELET COUNT 321 x10^3/uL (130-400); RED CELL DISTRIBUTION WIDTH 15.6 % (9.4-14.8)
[2018-08-29 04:45] LABS: ALANINE AMINOTRANSFERASE 34 U/L (12-78); ALBUMIN 2.5 g/dL (3.4-5.0); ANION GAP 10 mmol/L (5-15); CALCIUM 8.1 mg/dL (8.5-10.1); CHLORIDE 101 mmol/L (98-107); CREATININE 5.07 mg/dL (0.7-1.3)
[2018-08-29 04:48] LABS: ALKALINE PHOSPHATASE 71 U/L (45-117); BILIRUBIN,TOTAL 0.9 mg/dL (0.2-1.0); TOTAL PROTEIN 5.4 g/dL (6.4-8.2)
[2018-08-29] MEDS: LEVOTHYROXINE 50 MCG TABLET PO SCH (06:18)
[2018-08-29] MEDS: ASPIRIN 325 MG TABLET PO SCH (06:18)
[2018-08-29] MEDS: CARVEDILOL 3.125 MG TABLET PO SCH ×2 (06:18→18:00)
[2018-08-29] MEDS ORDERED: MAGNESIUM SULFATE PMX 2GM/50ML 50 ML IV ONE (07:30)
[2018-08-29] MEDS: AMIODARONE 200 MG TABLET PO SCH ×2 (07:46→20:14)
[2018-08-29] MEDS: POLYETHYLENE GLYCOL 17 GM PACKET PO SCH ×2 (13:14→20:14)
[2018-08-29] MEDS: ERGOCALCIFEROL 50,000 UNIT CAPSULE PO SCH (13:15)
[2018-08-29] MEDS: ATORVASTATIN 40 MG TABLET PO SCH (20:14)
[2018-08-29] MEDS: TEMAZEPAM 15 MG CAPSULE PO PRN (20:14)
[2018-08-29] MEDS: HEPARIN 5,000 UNITS/ML, 1ML IV PRN (23:09)
[2018-08-30] MEDS: HEPARIN 25,000 UNITS/500ML PMX 500 ML IV PRN ×2 (03:36→17:36)
[2018-08-30 04:25] LABS: BASOPHILS # (AUTO) 0.11 x10^3/uL (0-0.1); BASOPHILS % (AUTO) 1 % (0-1); EOSINOPHILS # (AUTO) 0.14 x10^3/uL (0-0.4); EOSINOPHILS % (AUTO) 1 % (1-7); LYMPHOCYTES % (AUTO) 9 % (22-44); MD NO; MEAN CORPUSCULAR HEMOGLOBIN 30.5 pg (27.5-34.5); MEAN CORPUSCULAR HGB CONC 33.7 g/dL (33.2-36.2); MEAN CORPUSCULAR VOLUME 90.6 fL (81-97); MEAN PLATELET VOLUME 8.5 fL (7.4-10.4); MONOCYTES # (AUTO) 0.98 x10^3/uL (0.2-0.8); MONOCYTES % (AUTO) 10 % (2-9); NEUTROPHILS # (AUTO) 8.21 x10^3/uL (1.8-6.8); NEUTROPHILS % (AUTO) 79 % (42-75); PLATELET COUNT 284 x10^3/uL (130-400); RED BLOOD COUNT 3.19 x10^6/uL (4.38-5.82); RED CELL DISTRIBUTION WIDTH 15.9 % (9.4-14.8)
[2018-08-30 04:31] LABS: ALANINE AMINOTRANSFERASE 28 U/L (12-78); ALBUMIN 2.4 g/dL (3.4-5.0); ANION GAP 12 mmol/L (5-15); CHLORIDE 100 mmol/L (98-107); CREATININE 5.63 mg/dL (0.7-1.3)
[2018-08-30 04:34] LABS: ALKALINE PHOSPHATASE 65 U/L (45-117); BILIRUBIN,TOTAL 0.7 mg/dL (0.2-1.0); TOTAL PROTEIN 5.2 g/dL (6.4-8.2)
[2018-08-30] MEDS: HEPARIN 5,000 UNITS/ML, 1ML IV PRN (06:11)
[2018-08-30] MEDS: ASPIRIN 325 MG TABLET PO SCH (06:15)
[2018-08-30] MEDS: CARVEDILOL 3.125 MG TABLET PO SCH ×2 (06:15→17:36)
[2018-08-30] MEDS: LEVOTHYROXINE 50 MCG TABLET PO SCH (06:16)
[2018-08-30] MEDS ORDERED: [UNRECOGNIZED DRUG - REMARK] MC PRN (08:25)
[2018-08-30] MEDS: POLYETHYLENE GLYCOL 17 GM PACKET PO SCH ×2 (09:08→21:09)
[2018-08-30] MEDS: AMIODARONE 200 MG TABLET PO SCH ×2 (09:08→21:09)
[2018-08-30] MEDS: ATORVASTATIN 40 MG TABLET PO SCH (21:08)
[2018-08-30] MEDS: TEMAZEPAM 15 MG CAPSULE PO PRN (21:39)
[2018-08-31 04:26] LABS: BASOPHILS # (AUTO) 0.08 x10^3/uL (0-0.1); BASOPHILS % (AUTO) 1 % (0-1); EOSINOPHILS # (AUTO) 0.22 x10^3/uL (0-0.4); EOSINOPHILS % (AUTO) 2 % (1-7); LYMPHOCYTES # (AUTO) 1.06 x10^3/uL (1-3.4); LYMPHOCYTES % (AUTO) 10 % (22-44); MD NO; MEAN CORPUSCULAR HEMOGLOBIN 30.6 pg (27.5-34.5); MEAN CORPUSCULAR HGB CONC 33.9 g/dL (33.2-36.2); MEAN CORPUSCULAR VOLUME 90.3 fL (81-97); MONOCYTES % (AUTO) 11 % (2-9); NEUTROPHILS # (AUTO) 8.31 x10^3/uL (1.8-6.8); NEUTROPHILS % (AUTO) 76 % (42-75); PLATELET COUNT 270 x10^3/uL (130-400); RED BLOOD COUNT 3.25 x10^6/uL (4.38-5.82); RED CELL DISTRIBUTION WIDTH 16.1 % (9.4-14.8)
[2018-08-31 04:35] LABS: ALBUMIN 2.5 g/dL (3.4-5.0); ANION GAP 9 mmol/L (5-15); CALCIUM 8.3 mg/dL (8.5-10.1); CHLORIDE 99 mmol/L (98-107); CREATININE 4.23 mg/dL (0.7-1.3)
[2018-08-31] MEDS: ASPIRIN 325 MG TABLET PO SCH (05:59)
[2018-08-31] MEDS: LEVOTHYROXINE 50 MCG TABLET PO SCH (06:00)
[2018-08-31] MEDS: CARVEDILOL 3.125 MG TABLET PO SCH ×2 (06:00→18:08)
[2018-08-31] MEDS: HEPARIN 25,000 UNITS/500ML PMX 500 ML IV PRN (07:17)
[2018-08-31] MEDS: AMIODARONE 200 MG TABLET PO SCH ×2 (08:22→20:54)
[2018-08-31] MEDS: POLYETHYLENE GLYCOL 17 GM PACKET PO SCH ×2 (08:22→20:55)
[2018-08-31] MEDS: ATORVASTATIN 40 MG TABLET PO SCH (20:53)
[2018-08-31] MEDS: TEMAZEPAM 15 MG CAPSULE PO PRN (20:54)
[2018-09-01 04:23] LABS: BASOPHILS # (AUTO) 0.07 x10^3/uL (0-0.1); BASOPHILS % (AUTO) 1 % (0-1); EOSINOPHILS % (AUTO) 2 % (1-7); LYMPHOCYTES # (AUTO) 0.97 x10^3/uL (1-3.4); LYMPHOCYTES % (AUTO) 10 % (22-44); MD NO; MEAN CORPUSCULAR HEMOGLOBIN 30.5 pg (27.5-34.5); MEAN CORPUSCULAR HGB CONC 33.7 g/dL (33.2-36.2); MEAN CORPUSCULAR VOLUME 90.4 fL (81-97); MONOCYTES # (AUTO) 1.15 x10^3/uL (0.2-0.8); MONOCYTES % (AUTO) 12 % (2-9); NEUTROPHILS # (AUTO) 7.41 x10^3/uL (1.8-6.8); NEUTROPHILS % (AUTO) 76 % (42-75); PLATELET COUNT 270 x10^3/uL (130-400); RED BLOOD COUNT 3.09 x10^6/uL (4.38-5.82); RED CELL DISTRIBUTION WIDTH 15.7 % (9.4-14.8)
[2018-09-01 04:30] LABS: ANION GAP 11 mmol/L (5-15); CALCIUM 7.8 mg/dL (8.5-10.1); CHLORIDE 99 mmol/L (98-107); CREATININE 4.42 mg/dL (0.7-1.3)
[2018-09-01] MEDS: HEPARIN 25,000 UNITS/500ML PMX 500 ML IV PRN ×2 (04:55→17:49)
[2018-09-01] MEDS: LEVOTHYROXINE 50 MCG TABLET PO SCH (06:17)
[2018-09-01] MEDS: CARVEDILOL 3.125 MG TABLET PO SCH ×2 (06:17→17:16)
[2018-09-01] MEDS: ASPIRIN 325 MG TABLET PO SCH (06:17)
[2018-09-01] MEDS ORDERED: INSULIN LISPRO 100 UNITS/ML, PEN SQ-INSULIN SCH (08:00)
[2018-09-01] MEDS ORDERED: METOPROLOL TARTRATE 25 MG TABLET PO ONE (08:00)
[2018-09-01] MEDS ORDERED: CHLORHEXIDINE 15 ML UDC MM PRN (08:00)
[2018-09-01 08:31] LABS: BASOPHILS # (AUTO) 0.09 x10^3/uL (0-0.1); BASOPHILS % (AUTO) 1 % (0-1); EOSINOPHILS # (AUTO) 0.23 x10^3/uL (0-0.4); EOSINOPHILS % (AUTO) 2 % (1-7); LYMPHOCYTES # (AUTO) 0.86 x10^3/uL (1-3.4); LYMPHOCYTES % (AUTO) 9 % (22-44); MD NO; MEAN CORPUSCULAR HGB CONC 33.4 g/dL (33.2-36.2); MEAN CORPUSCULAR VOLUME 89.7 fL (81-97); MEAN PLATELET VOLUME 8.6 fL (7.4-10.4); MONOCYTES % (AUTO) 9 % (2-9); NEUTROPHILS # (AUTO) 7.97 x10^3/uL (1.8-6.8); NEUTROPHILS % (AUTO) 79 % (42-75); PLATELET COUNT 311 x10^3/uL (130-400); RED BLOOD COUNT 3.33 x10^6/uL (4.38-5.82); RED CELL DISTRIBUTION WIDTH 15.8 % (9.4-14.8)
[2018-09-01 08:44] LABS: ALBUMIN 2.7 g/dL (3.4-5.0); ANION GAP 8 mmol/L (5-15); CALCIUM 7.8 mg/dL (8.5-10.1); CHLORIDE 99 mmol/L (98-107)
[2018-09-01 08:48] LABS: ALANINE AMINOTRANSFERASE 29 U/L (12-78); ALKALINE PHOSPHATASE 75 U/L (45-117); BILIRUBIN,TOTAL 0.7 mg/dL (0.2-1.0); TOTAL PROTEIN 5.9 g/dL (6.4-8.2)
[2018-09-01 08:57] LABS: INTERNATIONAL NORMALIZED RATIO 1.17 (0.93-1.1); PROTHROMBIN TIME 12.3 Seconds (9.6-11.5)
[2018-09-01] MEDS: MUPIROCIN OINT 2%, 22GM TP SCH ×2 (09:00→21:24)
[2018-09-01] MEDS: AMIODARONE 200 MG TABLET PO SCH ×2 (10:08→21:24)
[2018-09-01] MEDS: POLYETHYLENE GLYCOL 17 GM PACKET PO SCH ×2 (10:08→21:23)
[2018-09-01] MEDS: SODIUM CHLORIDE FLUSH 10ML SYR IVF SCH ×2 (10:09→21:25)
[2018-09-01 11:35] LABS: MICROSCOPIC AUTO
[2018-09-01] MEDS ORDERED: FUROSEMIDE 20 MG/2 ML IV ONE (13:00)
[2018-09-01 14:00] LABS: HEMOGLOBIN A1C 5.5 % (4.2-6.3)
[2018-09-01] MEDS: ATORVASTATIN 40 MG TABLET PO SCH (21:24)
[2018-09-01] MEDS: TEMAZEPAM 15 MG CAPSULE PO PRN (22:36)
[2018-09-02 03:09] VITALS: BP 113/76
[2018-09-02 03:30] VITALS: BP_SYST 129; BP_SYST 131; BP_DIAS 76; BP_DIAS 77
[2018-09-02] MEDS ORDERED: METOPROLOL TARTRATE 25 MG TABLET PO ONE (05:00)
[2018-09-02] MEDS: LEVOTHYROXINE 50 MCG TABLET PO SCH (05:52)
[2018-09-02] MEDS: MUPIROCIN OINT 2%, 22GM TP SCH (05:52)
[2018-09-02] MEDS: ASPIRIN 325 MG TABLET PO SCH (05:53)
[2018-09-02] MEDS ORDERED: PAPAVERINE 30 MG/ML, 2ML ONE (06:16)
[2018-09-02] MEDS ORDERED: HEPARIN 1,000 UNITS/ML, 10ML ONE (06:16)
[2018-09-02 06:40] LABS: BASOPHILS # (AUTO) 0.02 x10^3/uL (0-0.1); BASOPHILS % (AUTO) 0 % (0-1); EOSINOPHILS # (AUTO) 0.09 x10^3/uL (0-0.4); EOSINOPHILS % (AUTO) 1 % (1-7); LYMPHOCYTES # (AUTO) 0.97 x10^3/uL (1-3.4); LYMPHOCYTES % (AUTO) 9 % (22-44); MD NO; MEAN CORPUSCULAR HEMOGLOBIN 30.3 pg (27.5-34.5); MEAN CORPUSCULAR HGB CONC 33.5 g/dL (33.2-36.2); MEAN CORPUSCULAR VOLUME 90.4 fL (81-97); MEAN PLATELET VOLUME 8.8 fL (7.4-10.4); MONOCYTES # (AUTO) 1.02 x10^3/uL (0.2-0.8); MONOCYTES % (AUTO) 10 % (2-9); NEUTROPHILS # (AUTO) 8.15 x10^3/uL (1.8-6.8); NEUTROPHILS % (AUTO) 80 % (42-75); PLATELET COUNT 305 x10^3/uL (130-400); RED BLOOD COUNT 3.29 x10^6/uL (4.38-5.82); RED CELL DISTRIBUTION WIDTH 15.8 % (9.4-14.8)
[2018-09-02 06:53] LABS: ANION GAP 11 mmol/L (5-15); CALCIUM 8.5 mg/dL (8.5-10.1); CHLORIDE 99 mmol/L (98-107)
[2018-09-02 06:55] LABS: CREATININE 4.89 mg/dL (0.7-1.3)
[2018-09-02] MEDS ORDERED: MIDAZOLAM 10MG/2 ML ONE (06:58)
[2018-09-02] MEDS ORDERED: FENTANYL PF 250 MCG/5ML ONE ×4 (06:58→06:59)
[2018-09-02] MEDS ORDERED: NITROGLYCERIN 5 MG/ML, 10ML ONE (07:01)
[2018-09-02] MEDS: CARVEDILOL 3.125 MG TABLET PO SCH ×2 (07:04→18:00)
[2018-09-02 07:05] VITALS: BP 102/75
[2018-09-02] MEDS ORDERED: ALBUMIN HUMAN 5% 500 ML IV PRN (07:30)
[2018-09-02] MEDS ORDERED: PHENYLEPHRINE 10 MG in SODIUM CHLORIDE 0.9% 249 ML IV PRN ×2 (07:30→12:55)
[2018-09-02] MEDS ORDERED: MANNITOL PMX 20% 500 ML IVPB PRN (07:30)
[2018-09-02] MEDS ORDERED: REGULAR INSULIN 62.5 UNITS in SODIUM CHLORIDE 0.9% 249.375 ML IV PRN ×2 (07:30→12:55)
[2018-09-02] MEDS ORDERED: VANCOMYCIN 1,200 MG in SODIUM CHLORIDE 0.9% 250 ML IVPB PRN (07:30)
[2018-09-02] MEDS ORDERED: POTASSIUM CHLORIDE 80 MEQ, SODIUM BICARBONATE 8.4% 10 MEQ, MAGNESIUM SULFATE 0.5 GM, LI... IV PRN (07:30)
[2018-09-02] MEDS ORDERED: CEFUROXIME 1.5 GM in SODIUM CHLORIDE 0.9% 50 ML IVPB PRN (07:30)
[2018-09-02] MEDS ORDERED: VANCOMYCIN 1,200 MG in SODIUM CHLORIDE 0.9% 250 ML IV PRN (07:30)
[2018-09-02] MEDS ORDERED: EPINEPHRINE 2 MG in SODIUM CHLORIDE 0.9% 248 ML IV SCH (07:30)
[2018-09-02] MEDS ORDERED: DEXMEDETOMIDINE 200 MCG in SODIUM CHLORIDE 0.9% 48 ML IV SCH (07:30)
[2018-09-02] MEDS: AMIODARONE 200 MG TABLET PO SCH ×2 (09:00→21:26)
[2018-09-02] MEDS: SODIUM CHLORIDE FLUSH 10ML SYR IVF SCH ×2 (09:00→21:26)
[2018-09-02] MEDS: DOCUSATE 100 MG CAPSULE PO SCH ×2 (09:00→21:26)
[2018-09-02] MEDS: POLYETHYLENE GLYCOL 17 GM PACKET PO SCH (09:00)
[2018-09-02] MEDS ORDERED: [UNRECOGNIZED DRUG - OTHER] IV ONE (11:00)
[2018-09-02] MEDS ORDERED: PROTAMINE SULFATE 10 MG/ML, 25ML ONE ×2 (11:13)
[2018-09-02] MEDS ORDERED: HEPARIN 1,000 UNITS/ML, 30ML ONE ×2 (11:13→13:19)
[2018-09-02] MEDS ORDERED: PROPOFOL 10 MG/ML, 20ML ONE (11:14)
[2018-09-02] MEDS ORDERED: ROCURONIUM 10MG/ML,5ML ONE ×2 (11:14)
[2018-09-02] MEDS ORDERED: AMINOCAPROIC ACID 250 MG/ML, 20ML ONE (11:14)
[2018-09-02] MEDS ORDERED: DESMOPRESSIN 24 MCG in SODIUM CHLORIDE 0.9% 50 ML IVPB ONE (11:30)
[2018-09-02] MEDS ORDERED: MAGNESIUM SULFATE PMX 2GM/50ML 50 ML ONE (11:40)
[2018-09-02] MEDS ORDERED: NITROGLYCERIN/D5W PMX 250 ML IV PRN (12:55)
[2018-09-02] MEDS ORDERED: DEXMEDETOMIDINE 200 MCG in SODIUM CHLORIDE 0.9% 48 ML IV PRN (12:55)
[2018-09-02] MEDS ORDERED: VASOPRESSIN 50 UNIT in SODIUM CHLORIDE 0.9% 247.5 ML IV PRN (12:55)
[2018-09-02] MEDS ORDERED: SODIUM CHLORIDE 0.9% 1,000 ML IV PRN (12:55)
[2018-09-02] MEDS ORDERED: DOBUTAMINE 250 MG in SODIUM CHLORIDE 0.9% 230 ML IV PRN (12:55)
[2018-09-02] MEDS ORDERED: PROCHLORPERAZINE 5 MG/ML, 2ML IVPush PRN (13:00)
[2018-09-02] MEDS ORDERED: ACETAMINOPHEN 650 MG SUPP PR PRN (13:00)
[2018-09-02] MEDS ORDERED: DEXTROSE 50%, 50ML SYRINGE IVPush PRN (13:00)
[2018-09-02] MEDS ORDERED: EPINEPHRINE 2 MG in SODIUM CHLORIDE 0.9% 248 ML IV PRN (13:00)
[2018-09-02] MEDS ORDERED: ACETAMINOPHEN 325 MG TABLET PO PRN (13:00)
[2018-09-02] MEDS ORDERED: BISACODYL 10 MG SUPP PR PRN (13:00)
[2018-09-02] MEDS ORDERED: DEXTROSE 4 GM TAB.CHEW PO PRN (13:00)
[2018-09-02] MEDS ORDERED: INSULIN REGULAR 100 UNITS/ML, 3ML VIAL IVPush PRN (13:00)
[2018-09-02] MEDS ORDERED: GLUCAGON 1 MG IM PRN (13:00)
[2018-09-02] MEDS ORDERED: ONDANSETRON 2MG/ML, 2ML IVPush PRN (13:00)
[2018-09-02] MEDS ORDERED: SODIUM BICARB 8.4%, 50ML SYRINGE IV PRN (13:00)
[2018-09-02] MEDS ORDERED: BISACODYL 5 MG EC TABLET PO PRN (13:00)
[2018-09-02] MEDS ORDERED: MIDAZOLAM 1 MG/ML, 5ML IVPush PRN (13:00)
[2018-09-02] MEDS ORDERED: HYDROcodone/APAP 5/325 TABLET PO PRN (13:00)
[2018-09-02] MEDS: KSCALE TO 4.5 IV SCH ×2 (13:00→19:00)
[2018-09-02] MEDS ORDERED: LACTATED RINGERS 1,000 ML IV PRN (13:00)
[2018-09-02] MEDS ORDERED: SODIUM BICARBONATE 1 MEQ/ML, 50ML VIAL ONE (13:19)
[2018-09-02] MEDS ORDERED: LIDOCAINE 2% 100MG/5ML SYRINGE ONE (13:19)
[2018-09-02] MEDS ORDERED: ALBUMIN HUMAN 25% 100 ML ONE (13:19)
[2018-09-02 13:43] LABS: GLUCOSE BY BLOOD GAS ANALYZER 111 mg/dL (70-110); HEMOGLOBIN BY BLOOD GAS ANALYZ 9.2 g/dL (14.0-18.0)
[2018-09-02 13:57] LABS: INTERNATIONAL NORMALIZED RATIO 1.41 (0.93-1.1); PROTHROMBIN TIME 14.7 Seconds (9.6-11.5)
[2018-09-02] MEDS: INSULIN LISPRO 100 UNITS/ML, PEN SQ-INSULIN SCH ×2 (16:00→21:00)
[2018-09-02] MEDS: VANCOMYCIN 1,100 MG in SODIUM CHLORIDE 0.9% 250 ML IVPB SCH (18:28)
[2018-09-02] MEDS: morphine SULFATE 10 MG/ML, 1ML IVPush PRN (19:30)
[2018-09-02] MEDS: CHLORHEXIDINE 15 ML UDC PO SCH (21:25)
[2018-09-02] MEDS: ATORVASTATIN 40 MG TABLET PO SCH (21:25)
[2018-09-02] MEDS: MUPIROCIN OINT 2%, 22GM NAS SCH (21:27)
[2018-09-03] MEDS: morphine SULFATE 10 MG/ML, 1ML IVPush PRN (00:25)
[2018-09-03] MEDS: KSCALE TO 4.5 IV SCH ×2 (01:00→06:33)
[2018-09-03] MEDS: OXYcodone IR 5MG TABLET PO PRN ×3 (04:10→18:46)
[2018-09-03] MEDS: CARVEDILOL 3.125 MG TABLET PO SCH ×2 (05:57→17:48)
[2018-09-03] MEDS: LEVOTHYROXINE 50 MCG TABLET PO SCH (05:57)
[2018-09-03] MEDS: VANCOMYCIN 1,100 MG in SODIUM CHLORIDE 0.9% 250 ML IVPB SCH (06:25)
[2018-09-03 06:26] LABS: BASOPHILS % (AUTO) 0 % (0-1); EOSINOPHILS % (AUTO) 2 % (1-7); LYMPHOCYTES # (AUTO) 0.52 x10^3/uL (1-3.4); LYMPHOCYTES % (AUTO) 4 % (22-44); MD NO; MEAN CORPUSCULAR HEMOGLOBIN 30.5 pg (27.5-34.5); MEAN CORPUSCULAR HGB CONC 33.8 g/dL (33.2-36.2); MEAN CORPUSCULAR VOLUME 90.1 fL (81-97); MEAN PLATELET VOLUME 9.1 fL (7.4-10.4); MONOCYTES # (AUTO) 1.08 x10^3/uL (0.2-0.8); MONOCYTES % (AUTO) 8 % (2-9); NEUTROPHILS # (AUTO) 11.22 x10^3/uL (1.8-6.8); NEUTROPHILS % (AUTO) 86 % (42-75); PLATELET COUNT 248 x10^3/uL (130-400); RED BLOOD COUNT 2.92 x10^6/uL (4.38-5.82); RED CELL DISTRIBUTION WIDTH 16.1 % (9.4-14.8)
[2018-09-03] MEDS: INSULIN LISPRO 100 UNITS/ML, PEN SQ-INSULIN SCH ×4 (06:26→21:51)
[2018-09-03 06:30] LABS: ALBUMIN 2.7 g/dL (3.4-5.0); ANION GAP 11 mmol/L (5-15); CALCIUM 8.5 mg/dL (8.5-10.1); CHLORIDE 102 mmol/L (98-107); CREATININE 4.27 mg/dL (0.7-1.3); PARTIAL THROMBOPLASTIN TIME 33 Seconds (25-31)
[2018-09-03] MEDS: DOCUSATE 100 MG CAPSULE PO SCH ×2 (08:16→21:41)
[2018-09-03] MEDS: ASPIRIN 81 MG TABLET EC PO SCH (08:16)
[2018-09-03] MEDS: CHLORHEXIDINE 15 ML UDC PO SCH ×2 (08:17→21:40)
[2018-09-03] MEDS: SODIUM CHLORIDE FLUSH 10ML SYR IVF SCH ×2 (08:17→21:51)
[2018-09-03] MEDS: MUPIROCIN OINT 2%, 22GM NAS SCH ×2 (08:17→21:40)
[2018-09-03] MEDS: AMIODARONE 200 MG TABLET PO SCH ×2 (08:17→21:41)
[2018-09-03 09:40] LABS: HIT RESULT NEGATIVE (NEGATIVE)
[2018-09-03] MEDS ORDERED: AMIODARONE 150 MG in DEXTROSE 5% 100 ML IV ONE (19:30)
[2018-09-03] MEDS ORDERED: FILTER 0.22 MICRON FOR AMIODARONE IV PRN (20:00)
[2018-09-03] MEDS: ATORVASTATIN 40 MG TABLET PO SCH (21:41)
[2018-09-03] MEDS: TEMAZEPAM 15 MG CAPSULE PO PRN (21:52)
[2018-09-04 04:35] LABS: FIO2 RA %
[2018-09-04 04:44] LABS: BASOPHILS # (AUTO) 0.02 x10^3/uL (0-0.1); BASOPHILS % (AUTO) 0 % (0-1); EOSINOPHILS # (AUTO) 0.19 x10^3/uL (0-0.4); EOSINOPHILS % (AUTO) 1 % (1-7); LYMPHOCYTES # (AUTO) 0.66 x10^3/uL (1-3.4); LYMPHOCYTES % (AUTO) 5 % (22-44); MD NO; MEAN CORPUSCULAR HEMOGLOBIN 30.3 pg (27.5-34.5); MEAN CORPUSCULAR HGB CONC 33.4 g/dL (33.2-36.2); MEAN CORPUSCULAR VOLUME 90.8 fL (81-97); MEAN PLATELET VOLUME 8.5 fL (7.4-10.4); MONOCYTES # (AUTO) 1.39 x10^3/uL (0.2-0.8); MONOCYTES % (AUTO) 10 % (2-9); NEUTROPHILS # (AUTO) 11.15 x10^3/uL (1.8-6.8); NEUTROPHILS % (AUTO) 83 % (42-75); PLATELET COUNT 249 x10^3/uL (130-400); RED BLOOD COUNT 2.66 x10^6/uL (4.38-5.82); RED CELL DISTRIBUTION WIDTH 15.7 % (9.4-14.8)
[2018-09-04 04:56] LABS: ANION GAP 11 mmol/L (5-15); CALCIUM 9.2 mg/dL (8.5-10.1); CHLORIDE 96 mmol/L (98-107)
[2018-09-04 04:58] LABS: CREATININE 3.94 mg/dL (0.7-1.3)
[2018-09-04] MEDS: LEVOTHYROXINE 50 MCG TABLET PO SCH (06:48)
[2018-09-04] MEDS: CARVEDILOL 3.125 MG TABLET PO SCH ×2 (06:48→17:55)
[2018-09-04] MEDS: INSULIN LISPRO 100 UNITS/ML, PEN SQ-INSULIN SCH ×4 (07:00→21:00)
[2018-09-04] MEDS ORDERED: FUROSEMIDE 40 MG/4 ML IV ONE (07:00)
[2018-09-04] MEDS ORDERED: DEXTROSE 50%, 50ML SYRINGE IVPush PRN (07:30)
[2018-09-04] MEDS ORDERED: GLUCAGON 1 MG IM PRN (07:30)
[2018-09-04] MEDS ORDERED: DEXTROSE 4 GM TAB.CHEW PO PRN (07:30)
[2018-09-04] MEDS ORDERED: MAGNESIUM HYDROXIDE 8%, 30ML UDC PO PRN (07:30)
[2018-09-04] MEDS ORDERED: VASOPRESSIN 20 UNIT/ML, 1ML ONE (08:02)
[2018-09-04] MEDS ORDERED: ENOXAPARIN 40 MG/0.4 ML SQ SCH (09:00)
[2018-09-04] MEDS ORDERED: ENOXAPARIN 30 MG/0.3 ML SQ SCH (09:00)
[2018-09-04] MEDS: MUPIROCIN OINT 2%, 22GM NAS SCH ×2 (09:00→21:00)
[2018-09-04] MEDS: CHLORHEXIDINE 15 ML UDC PO SCH (09:23)
[2018-09-04] MEDS: ASPIRIN 81 MG TABLET EC PO SCH (09:23)
[2018-09-04] MEDS: DOCUSATE 100 MG CAPSULE PO SCH ×2 (09:24→21:18)
[2018-09-04] MEDS: SODIUM CHLORIDE FLUSH 10ML SYR IVF SCH ×5 (09:24→21:15)
[2018-09-04] MEDS: AMIODARONE 900 MG in DEXTROSE 5% 482 ML IV SCH (09:24)
[2018-09-04] MEDS: AMIODARONE 200 MG TABLET PO SCH ×2 (09:26→21:19)
[2018-09-04 15:57] VITALS: BP 110/69
[2018-09-04 17:52] VITALS: BP 110/52
[2018-09-04 19:42] VITALS: BP 114/67
[2018-09-04] MEDS: ATORVASTATIN 40 MG TABLET PO SCH (21:19)
[2018-09-04] MEDS: TEMAZEPAM 15 MG CAPSULE PO PRN (21:19)
[2018-09-05] VITALS (16 sets, daily range): BP systolic 93–116; BP diastolic 54–71
[2018-09-05] MEDS: CARVEDILOL 3.125 MG TABLET PO SCH ×2 (05:37→18:15)
[2018-09-05] MEDS: LEVOTHYROXINE 50 MCG TABLET PO SCH (05:37)
[2018-09-05 06:08] LABS: MEAN CORPUSCULAR HEMOGLOBIN 30.9 pg (27.5-34.5); MEAN CORPUSCULAR HGB CONC 34.3 g/dL (33.2-36.2); MEAN CORPUSCULAR VOLUME 90.1 fL (81-97); MEAN PLATELET VOLUME 8.1 fL (7.4-10.4); PLATELET COUNT 251 x10^3/uL (130-400); RED BLOOD COUNT 2.39 x10^6/uL (4.38-5.82); RED CELL DISTRIBUTION WIDTH 16.3 % (9.4-14.8)
[2018-09-05 06:15] LABS: CHLORIDE 95 mmol/L (98-107)
[2018-09-05 06:35] LABS: ANION GAP 13 mmol/L (5-15); CALCIUM 8.6 mg/dL (8.5-10.1); CREATININE 3.49 mg/dL (0.7-1.3)
[2018-09-05] MEDS: INSULIN LISPRO 100 UNITS/ML, PEN SQ-INSULIN SCH (07:00)
[2018-09-05 07:07] LABS: MD YES
[2018-09-05 07:47] LABS: <PLATELET ESTIMATE> ADEQUATE; <PLT MORPHOLOGY> NORMAL PLT MORPH; ANISOCYTOSIS 1+; EOS#(MANUAL) 0.26 x10^3/uL (0.0-0.4); EOS% (MANUAL) 2 % (1-7); LYMPH#(MANUAL) 0.52 x10^3/uL (1-3.4); LYMPHS% (MANUAL) 4 % (22-44); MONOS#(MANUAL) 0.26 x10^3/uL (0.3-2.7); MONOS% (MANUAL) 2 % (2-9); SEG#(MANUAL) 11.87 x10^3/uL (1.8-6.8); SEGS% (MANUAL) 92 % (42-75)
[2018-09-05] MEDS ORDERED: FUROSEMIDE 40 MG/4 ML IV ONE (08:00)
[2018-09-05] MEDS: SODIUM CHLORIDE FLUSH 10ML SYR IVF SCH ×4 (08:11→20:14)
[2018-09-05] MEDS: DOCUSATE 100 MG CAPSULE PO SCH ×2 (08:11→20:13)
[2018-09-05] MEDS: AMIODARONE 200 MG TABLET PO SCH ×2 (08:11→20:13)
[2018-09-05] MEDS: CLOPIDOGREL 75 MG TABLET PO SCH (08:12)
[2018-09-05] MEDS: AMIODARONE 900 MG in DEXTROSE 5% 482 ML IV SCH (08:12)
[2018-09-05] MEDS: ASPIRIN 81 MG TABLET EC PO SCH (08:12)
[2018-09-05] MEDS: MUPIROCIN OINT 2%, 22GM NAS SCH ×2 (08:14→20:14)
[2018-09-05 15:16] LABS: BASOPHILS # (AUTO) 0.04 x10^3/uL (0-0.1); BASOPHILS % (AUTO) 0 % (0-1); EOSINOPHILS # (AUTO) 0.04 x10^3/uL (0-0.4); EOSINOPHILS % (AUTO) 0 % (1-7); LYMPHOCYTES # (AUTO) 0.58 x10^3/uL (1-3.4); LYMPHOCYTES % (AUTO) 5 % (22-44); MD NO; MEAN CORPUSCULAR HEMOGLOBIN 29.7 pg (27.5-34.5); MEAN CORPUSCULAR HGB CONC 33.6 g/dL (33.2-36.2); MEAN CORPUSCULAR VOLUME 88.4 fL (81-97); MEAN PLATELET VOLUME 8.7 fL (7.4-10.4); MONOCYTES # (AUTO) 1.44 x10^3/uL (0.2-0.8); MONOCYTES % (AUTO) 12 % (2-9); NEUTROPHILS # (AUTO) 10.39 x10^3/uL (1.8-6.8); NEUTROPHILS % (AUTO) 83 % (42-75); PLATELET COUNT 237 x10^3/uL (130-400); RED BLOOD COUNT 2.85 x10^6/uL (4.38-5.82); RED CELL DISTRIBUTION WIDTH 17.3 % (9.4-14.8)
[2018-09-05] MEDS: ERGOCALCIFEROL 50,000 UNIT CAPSULE PO SCH (18:15)
[2018-09-05] MEDS: ATORVASTATIN 40 MG TABLET PO SCH (20:13)
[2018-09-05] MEDS: TEMAZEPAM 15 MG CAPSULE PO PRN ×2 (20:13→22:59)
[2018-09-06 00:58] VITALS: BP 121/76
[2018-09-06 05:03] LABS: BASOPHILS % (AUTO) 1 % (0-1); EOSINOPHILS # (AUTO) 0.25 x10^3/uL (0-0.4); EOSINOPHILS % (AUTO) 2 % (1-7); LYMPHOCYTES # (AUTO) 0.67 x10^3/uL (1-3.4); LYMPHOCYTES % (AUTO) 5 % (22-44); MD NO; MEAN CORPUSCULAR HEMOGLOBIN 29.4 pg (27.5-34.5); MEAN CORPUSCULAR HGB CONC 32.9 g/dL (33.2-36.2); MEAN CORPUSCULAR VOLUME 89.3 fL (81-97); MEAN PLATELET VOLUME 8.7 fL (7.4-10.4); MONOCYTES # (AUTO) 1.33 x10^3/uL (0.2-0.8); MONOCYTES % (AUTO) 10 % (2-9); NEUTROPHILS # (AUTO) 10.44 x10^3/uL (1.8-6.8); NEUTROPHILS % (AUTO) 82 % (42-75); PLATELET COUNT 286 x10^3/uL (130-400); RED BLOOD COUNT 2.97 x10^6/uL (4.38-5.82)
[2018-09-06 05:13] LABS: ANION GAP 11 mmol/L (5-15); CALCIUM 7.9 mg/dL (8.5-10.1); CHLORIDE 99 mmol/L (98-107)
[2018-09-06 05:14] LABS: CREATININE 2.86 mg/dL (0.7-1.3)
[2018-09-06 06:04] VITALS: BP 127/74
[2018-09-06] MEDS: LEVOTHYROXINE 50 MCG TABLET PO SCH (06:05)
[2018-09-06] MEDS: CARVEDILOL 3.125 MG TABLET PO SCH ×2 (06:05→17:15)
[2018-09-06 07:03] VITALS: BP 111/70
[2018-09-06] MEDS: CLOPIDOGREL 75 MG TABLET PO SCH (09:00)
[2018-09-06] MEDS: AMIODARONE 200 MG TABLET PO SCH ×2 (09:01→20:50)
[2018-09-06] MEDS: DOCUSATE 100 MG CAPSULE PO SCH ×2 (09:01→20:51)
[2018-09-06] MEDS: ASPIRIN 81 MG TABLET EC PO SCH (09:01)
[2018-09-06] MEDS: POTASSIUM CHLORIDE 20 MEQ TAB.ER.PRT PO SCH ×2 (09:01→20:50)
[2018-09-06] MEDS: SODIUM CHLORIDE FLUSH 10ML SYR IVF SCH ×2 (09:58→20:49)
[2018-09-06] MEDS ORDERED: NALOXONE 1 MG/ML, 2ML ONE (10:48)
[2018-09-06] MEDS ORDERED: FENTANYL PF 100 MCG/2ML ONE (10:48)
[2018-09-06] MEDS ORDERED: LIDOCAINE-MPF 1%, 5ML ONE (10:49)
[2018-09-06] MEDS: MUPIROCIN OINT 2%, 22GM NAS SCH ×2 (11:00→20:49)
[2018-09-06] MEDS ORDERED: MAGNESIUM SULFATE PMX 2GM/50ML 50 ML IV ONE (12:30)
[2018-09-06 13:09] VITALS: BP 116/70
[2018-09-06 20:39] VITALS: BP 110/62
[2018-09-06] MEDS: ATORVASTATIN 40 MG TABLET PO SCH (20:50)
[2018-09-06] MEDS: TEMAZEPAM 15 MG CAPSULE PO PRN ×2 (20:51→22:13)
[2018-09-07 01:01] VITALS: BP 119/74
[2018-09-07] MEDS: OXYcodone IR 5MG TABLET PO PRN ×2 (01:40→14:50)
[2018-09-07 05:55] VITALS: BP 123/74
[2018-09-07 05:58] LABS: MEAN CORPUSCULAR HEMOGLOBIN 29.6 pg (27.5-34.5); MEAN CORPUSCULAR HGB CONC 33.1 g/dL (33.2-36.2); MEAN CORPUSCULAR VOLUME 89.4 fL (81-97); MEAN PLATELET VOLUME 7.9 fL (7.4-10.4); PLATELET COUNT 367 x10^3/uL (130-400); RED BLOOD COUNT 3.22 x10^6/uL (4.38-5.82); RED CELL DISTRIBUTION WIDTH 17.2 % (9.4-14.8)
[2018-09-07] MEDS: CARVEDILOL 3.125 MG TABLET PO SCH ×2 (06:01→18:04)
[2018-09-07] MEDS: LEVOTHYROXINE 50 MCG TABLET PO SCH (06:01)
[2018-09-07 06:12] LABS: ANION GAP 8 mmol/L (5-15); CALCIUM 7.8 mg/dL (8.5-10.1); CHLORIDE 104 mmol/L (98-107); CREATININE 2.41 mg/dL (0.7-1.3)
[2018-09-07 07:00] LABS: BASOPHILS # (AUTO) 0.04 x10^3/uL (0-0.1); BASOPHILS % (AUTO) 0 % (0-1); EOSINOPHILS # (AUTO) 0.36 x10^3/uL (0-0.4); EOSINOPHILS % (AUTO) 3 % (1-7); LYMPHOCYTES # (AUTO) 0.72 x10^3/uL (1-3.4); LYMPHOCYTES % (AUTO) 5 % (22-44); MD SCAN; MONOCYTES # (AUTO) 1.57 x10^3/uL (0.2-0.8); MONOCYTES % (AUTO) 11 % (2-9); NEUTROPHILS # (AUTO) 11.16 x10^3/uL (1.8-6.8); NEUTROPHILS % (AUTO) 81 % (42-75)
[2018-09-07 07:15] VITALS: BP 111/67
[2018-09-07] MEDS: DOCUSATE 100 MG CAPSULE PO SCH ×2 (08:40→20:35)
[2018-09-07] MEDS: MUPIROCIN OINT 2%, 22GM NAS SCH (08:46)
[2018-09-07] MEDS: CLOPIDOGREL 75 MG TABLET PO SCH (08:46)
[2018-09-07] MEDS: SODIUM CHLORIDE FLUSH 10ML SYR IVF SCH ×2 (08:46→20:35)
[2018-09-07] MEDS: AMIODARONE 200 MG TABLET PO SCH ×2 (08:47→20:35)
[2018-09-07] MEDS: ASPIRIN 81 MG TABLET EC PO SCH (08:47)
[2018-09-07] MEDS ORDERED: POLYETHYLENE GLYCOL 17 GM PACKET ONE (09:53)
[2018-09-07] MEDS: POLYETHYLENE GLYCOL 17 GM PACKET NG PRN (09:57)
[2018-09-07 13:40] VITALS: BP 125/78
[2018-09-07 19:16] VITALS: BP 137/84
[2018-09-07] MEDS: ATORVASTATIN 40 MG TABLET PO SCH (20:35)
[2018-09-07] MEDS: TEMAZEPAM 15 MG CAPSULE PO PRN (22:17)
[2018-09-08] VITALS (8 sets, daily range): BP systolic 94–125; BP diastolic 66–83
[2018-09-08] MEDS: TEMAZEPAM 15 MG CAPSULE PO PRN (00:03)
[2018-09-08] MEDS: OXYcodone IR 5MG TABLET PO PRN (04:18)
[2018-09-08 05:51] LABS: MEAN CORPUSCULAR HEMOGLOBIN 30.5 pg (27.5-34.5); MEAN CORPUSCULAR HGB CONC 33.8 g/dL (33.2-36.2); MEAN CORPUSCULAR VOLUME 90.3 fL (81-97); PLATELET COUNT 346 x10^3/uL (130-400); RED BLOOD COUNT 3.06 x10^6/uL (4.38-5.82); RED CELL DISTRIBUTION WIDTH 17.1 % (9.4-14.8)
[2018-09-08 05:59] LABS: ANION GAP 7 mmol/L (5-15); CALCIUM 8.2 mg/dL (8.5-10.1); CHLORIDE 105 mmol/L (98-107); CREATININE 2.13 mg/dL (0.7-1.3)
[2018-09-08] MEDS: CARVEDILOL 3.125 MG TABLET PO SCH ×2 (06:27→18:39)
[2018-09-08] MEDS: LEVOTHYROXINE 50 MCG TABLET PO SCH (06:27)
[2018-09-08 06:50] LABS: BASOPHILS # (AUTO) 0.11 x10^3/uL (0-0.1); BASOPHILS % (AUTO) 1 % (0-1); EOSINOPHILS # (AUTO) 0.84 x10^3/uL (0-0.4); EOSINOPHILS % (AUTO) 7 % (1-7); LYMPHOCYTES # (AUTO) 0.74 x10^3/uL (1-3.4); LYMPHOCYTES % (AUTO) 6 % (22-44); MD SCAN; MONOCYTES % (AUTO) 12 % (2-9); NEUTROPHILS # (AUTO) 9.69 x10^3/uL (1.8-6.8); NEUTROPHILS % (AUTO) 75 % (42-75)
[2018-09-08] MEDS: ASPIRIN 81 MG TABLET EC PO SCH (08:55)
[2018-09-08] MEDS: CLOPIDOGREL 75 MG TABLET PO SCH (08:55)
[2018-09-08] MEDS: DOCUSATE 100 MG CAPSULE PO SCH ×2 (08:56→21:30)
[2018-09-08] MEDS: SODIUM CHLORIDE FLUSH 10ML SYR IVF SCH ×2 (08:58→21:01)
[2018-09-08] MEDS: AMIODARONE 200 MG TABLET PO SCH ×2 (09:13→21:02)
[2018-09-08] MEDS: POLYETHYLENE GLYCOL 17 GM PACKET NG PRN ×2 (12:33→14:22)
[2018-09-08] MEDS ORDERED: HEPARIN wt. based STROKE protocol MC PRN (15:00)
[2018-09-08] MEDS ORDERED: HEPARIN 25,000 UNITS/500ML PMX 500 ML IV PRN (15:00)
[2018-09-08] MEDS: ATORVASTATIN 40 MG TABLET PO SCH (21:01)
[2018-09-09 01:00] VITALS: BP 133/78
[2018-09-09] MEDS: OXYcodone IR 5MG TABLET PO PRN (02:22)
[2018-09-09 05:20] LABS: BASOPHILS # (AUTO) 0.01 x10^3/uL (0-0.1); BASOPHILS % (AUTO) 0 % (0-1); EOSINOPHILS # (AUTO) 0.58 x10^3/uL (0-0.4); EOSINOPHILS % (AUTO) 4 % (1-7); LYMPHOCYTES % (AUTO) 8 % (22-44); MD NO; MEAN CORPUSCULAR HEMOGLOBIN 30.8 pg (27.5-34.5); MEAN CORPUSCULAR HGB CONC 34.1 g/dL (33.2-36.2); MEAN CORPUSCULAR VOLUME 90.1 fL (81-97); MEAN PLATELET VOLUME 7.8 fL (7.4-10.4); MONOCYTES # (AUTO) 1.21 x10^3/uL (0.2-0.8); MONOCYTES % (AUTO) 8 % (2-9); NEUTROPHILS # (AUTO) 11.71 x10^3/uL (1.8-6.8); NEUTROPHILS % (AUTO) 80 % (42-75); PLATELET COUNT 419 x10^3/uL (130-400); RED BLOOD COUNT 3.22 x10^6/uL (4.38-5.82); RED CELL DISTRIBUTION WIDTH 17.2 % (9.4-14.8)
[2018-09-09 05:25] LABS: ANION GAP 5 mmol/L (5-15); CALCIUM 8.5 mg/dL (8.5-10.1); CHLORIDE 104 mmol/L (98-107); CREATININE 1.87 mg/dL (0.7-1.3)
[2018-09-09] MEDS: CARVEDILOL 3.125 MG TABLET PO SCH ×2 (06:04→18:22)
[2018-09-09] MEDS: LEVOTHYROXINE 50 MCG TABLET PO SCH (06:04)
[2018-09-09 08:06] VITALS: BP 136/73
[2018-09-09] MEDS: DOCUSATE 100 MG CAPSULE PO SCH ×2 (08:13→20:41)
[2018-09-09] MEDS: ASPIRIN 81 MG TABLET EC PO SCH (11:06)
[2018-09-09] MEDS: AMIODARONE 200 MG TABLET PO SCH ×2 (11:06→20:41)
[2018-09-09] MEDS: CLOPIDOGREL 75 MG TABLET PO SCH (11:06)
[2018-09-09] MEDS: POLYETHYLENE GLYCOL 17 GM PACKET NG PRN (11:07)
[2018-09-09] MEDS: SODIUM CHLORIDE FLUSH 10ML SYR IVF SCH ×2 (11:07→20:41)
[2018-09-09] MEDS ORDERED: APIXABAN 5 MG TABLET ONE (13:28)
[2018-09-09] MEDS: APIXABAN 5 MG TABLET PO SCH ×2 (13:57→20:41)
[2018-09-09 14:38] VITALS: BP 139/70
[2018-09-09 18:15] VITALS: BP 113/69
[2018-09-09] MEDS: ATORVASTATIN 40 MG TABLET PO SCH (20:40)
[2018-09-10 00:43] VITALS: BP 116/67
[2018-09-10 05:15] LABS: BASOPHILS # (AUTO) 0.03 x10^3/uL (0-0.1); BASOPHILS % (AUTO) 0 % (0-1); EOSINOPHILS # (AUTO) 0.99 x10^3/uL (0-0.4); EOSINOPHILS % (AUTO) 7 % (1-7); LYMPHOCYTES # (AUTO) 0.89 x10^3/uL (1-3.4); LYMPHOCYTES % (AUTO) 6 % (22-44); MD NO; MEAN CORPUSCULAR HEMOGLOBIN 30.1 pg (27.5-34.5); MEAN CORPUSCULAR HGB CONC 33.2 g/dL (33.2-36.2); MEAN CORPUSCULAR VOLUME 90.7 fL (81-97); MEAN PLATELET VOLUME 7.6 fL (7.4-10.4); MONOCYTES # (AUTO) 1.27 x10^3/uL (0.2-0.8); MONOCYTES % (AUTO) 9 % (2-9); NEUTROPHILS # (AUTO) 11.37 x10^3/uL (1.8-6.8); NEUTROPHILS % (AUTO) 78 % (42-75); PLATELET COUNT 413 x10^3/uL (130-400); RED CELL DISTRIBUTION WIDTH 17.1 % (9.4-14.8)
[2018-09-10 05:22] LABS: ANION GAP 5 mmol/L (5-15); CALCIUM 8.2 mg/dL (8.5-10.1); CHLORIDE 105 mmol/L (98-107)
[2018-09-10 05:53] VITALS: BP 117/69
[2018-09-10] MEDS: CARVEDILOL 3.125 MG TABLET PO SCH ×2 (05:55→17:33)
[2018-09-10] MEDS: LEVOTHYROXINE 50 MCG TABLET PO SCH (05:55)
[2018-09-10 06:40] VITALS: BP 120/83
[2018-09-10] MEDS: DOCUSATE 100 MG CAPSULE PO SCH ×2 (07:39→19:27)
[2018-09-10] MEDS: AMIODARONE 200 MG TABLET PO SCH ×2 (08:13→19:28)
[2018-09-10] MEDS: CLOPIDOGREL 75 MG TABLET PO SCH (08:13)
[2018-09-10] MEDS: ASPIRIN 81 MG TABLET EC PO SCH (08:13)
[2018-09-10] MEDS: SODIUM CHLORIDE FLUSH 10ML SYR IVF SCH ×2 (08:14→19:27)
[2018-09-10] MEDS: APIXABAN 5 MG TABLET PO SCH ×2 (08:14→19:28)
[2018-09-10] MEDS: POLYETHYLENE GLYCOL 17 GM PACKET NG PRN (10:15)
[2018-09-10 13:10] VITALS: BP 123/69
[2018-09-10] MEDS: ATORVASTATIN 40 MG TABLET PO SCH (19:28)
[2018-09-10] MEDS: OXYcodone IR 5MG TABLET PO PRN (19:28)
[2018-09-10 20:22] VITALS: BP 114/72
[2018-09-10] MEDS: TEMAZEPAM 15 MG CAPSULE PO PRN (21:11)
[2018-09-11 00:13] VITALS: BP 117/68
[2018-09-11 05:14] LABS: BASOPHILS # (AUTO) 0.05 x10^3/uL (0-0.1); BASOPHILS % (AUTO) 0 % (0-1); EOSINOPHILS # (AUTO) 0.59 x10^3/uL (0-0.4); EOSINOPHILS % (AUTO) 4 % (1-7); LYMPHOCYTES # (AUTO) 0.92 x10^3/uL (1-3.4); LYMPHOCYTES % (AUTO) 6 % (22-44); MD NO; MEAN CORPUSCULAR HEMOGLOBIN 29.8 pg (27.5-34.5); MEAN CORPUSCULAR HGB CONC 33.2 g/dL (33.2-36.2); MEAN CORPUSCULAR VOLUME 89.7 fL (81-97); MEAN PLATELET VOLUME 7.5 fL (7.4-10.4); MONOCYTES # (AUTO) 1.24 x10^3/uL (0.2-0.8); MONOCYTES % (AUTO) 8 % (2-9); NEUTROPHILS # (AUTO) 11.91 x10^3/uL (1.8-6.8); NEUTROPHILS % (AUTO) 81 % (42-75); PLATELET COUNT 484 x10^3/uL (130-400); RED BLOOD COUNT 3.22 x10^6/uL (4.38-5.82); RED CELL DISTRIBUTION WIDTH 17.3 % (9.4-14.8)
[2018-09-11 05:20] LABS: ANION GAP 7 mmol/L (5-15); CALCIUM 7.9 mg/dL (8.5-10.1); CHLORIDE 105 mmol/L (98-107)
[2018-09-11 05:21] LABS: CREATININE 1.69 mg/dL (0.7-1.3)
[2018-09-11 05:47] VITALS: BP 110/70
[2018-09-11] MEDS: CARVEDILOL 3.125 MG TABLET PO SCH ×2 (05:48→17:19)
[2018-09-11] MEDS: LEVOTHYROXINE 50 MCG TABLET PO SCH (05:48)
[2018-09-11 07:11] VITALS: BP 109/66
[2018-09-11] MEDS: DOCUSATE 100 MG CAPSULE PO SCH ×2 (07:51→20:17)
[2018-09-11] MEDS: SODIUM CHLORIDE FLUSH 10ML SYR IVF SCH ×2 (08:27→20:17)
[2018-09-11] MEDS: CLOPIDOGREL 75 MG TABLET PO SCH (08:27)
[2018-09-11] MEDS: APIXABAN 5 MG TABLET PO SCH ×2 (08:27→20:16)
[2018-09-11] MEDS: ASPIRIN 81 MG TABLET EC PO SCH (08:27)
[2018-09-11] MEDS: AMIODARONE 200 MG TABLET PO SCH (08:27)
[2018-09-11] MEDS ORDERED: CARV3.1212 PO (09:22)
[2018-09-11] MEDS ORDERED: ERGO500017 PO (09:22)
[2018-09-11] MEDS ORDERED: DOCU-131 PO (09:22)
[2018-09-11] MEDS ORDERED: LEVO50TA PO (09:22)
[2018-09-11] MEDS ORDERED: AMIO200T42 PO (09:22)
[2018-09-11] MEDS ORDERED: CLOP75TA PO (09:22)
[2018-09-11] MEDS ORDERED: ATOR40TA78 PO (09:22)
[2018-09-11] MEDS ORDERED: APIX5TAB PO (09:22)
[2018-09-11] MEDS ORDERED: OXYC5TAB3 PO (09:22)
[2018-09-11] MEDS: POLYETHYLENE GLYCOL 17 GM PACKET NG PRN (10:01)
[2018-09-11 14:45] VITALS: BP 119/79
[2018-09-11 20:04] VITALS: BP 120/65
[2018-09-11] MEDS: TEMAZEPAM 15 MG CAPSULE PO PRN ×2 (20:16→23:13)
[2018-09-11] MEDS: ATORVASTATIN 40 MG TABLET PO SCH (20:16)
[2018-09-11] MEDS: OXYcodone IR 5MG TABLET PO PRN (23:13)
[2018-09-12 01:06] VITALS: BP 130/79
[2018-09-12] MEDS: OXYcodone IR 5MG TABLET PO PRN ×2 (03:53→14:25)
[2018-09-12 06:03] LABS: BASOPHILS # (AUTO) 0.03 x10^3/uL (0-0.1); BASOPHILS % (AUTO) 0 % (0-1); EOSINOPHILS # (AUTO) 0.31 x10^3/uL (0-0.4); EOSINOPHILS % (AUTO) 4 % (1-7); LYMPHOCYTES # (AUTO) 1.52 x10^3/uL (1-3.4); LYMPHOCYTES % (AUTO) 18 % (22-44); MD NO; MEAN CORPUSCULAR HEMOGLOBIN 33.3 pg (27.5-34.5); MEAN CORPUSCULAR VOLUME 97.9 fL (81-97); MEAN PLATELET VOLUME 8.5 fL (7.4-10.4); MONOCYTES # (AUTO) 0.84 x10^3/uL (0.2-0.8); MONOCYTES % (AUTO) 10 % (2-9); NEUTROPHILS # (AUTO) 5.97 x10^3/uL (1.8-6.8); NEUTROPHILS % (AUTO) 69 % (42-75); PLATELET COUNT 167 x10^3/uL (130-400); RED BLOOD COUNT 2.83 x10^6/uL (4.38-5.82); RED CELL DISTRIBUTION WIDTH 15.6 % (9.4-14.8)
[2018-09-12] MEDS: CARVEDILOL 3.125 MG TABLET PO SCH ×2 (06:08→17:40)
[2018-09-12] MEDS: LEVOTHYROXINE 50 MCG TABLET PO SCH (06:08)
[2018-09-12 06:15] LABS: ANION GAP 8 mmol/L (5-15); CALCIUM 8.3 mg/dL (8.5-10.1); CHLORIDE 95 mmol/L (98-107); CREATININE 1.09 mg/dL (0.7-1.3)
[2018-09-12 07:27] VITALS: BP 110/68
[2018-09-12] MEDS ORDERED: POTASSIUM CHLORIDE 20 MEQ TAB.ER.PRT PO ONE (08:30)
[2018-09-12] MEDS: DOCUSATE 100 MG CAPSULE PO SCH ×2 (09:00→21:00)
[2018-09-12] MEDS: SODIUM CHLORIDE FLUSH 10ML SYR IVF SCH ×2 (10:08→20:48)
[2018-09-12] MEDS: APIXABAN 5 MG TABLET PO SCH ×2 (10:09→20:47)
[2018-09-12] MEDS: CLOPIDOGREL 75 MG TABLET PO SCH (10:09)
[2018-09-12] MEDS: AMIODARONE 200 MG TABLET PO SCH (10:09)
[2018-09-12] MEDS: POLYETHYLENE GLYCOL 17 GM PACKET NG PRN (10:11)
[2018-09-12 12:55] VITALS: BP 113/70
[2018-09-12] MEDS: ERGOCALCIFEROL 50,000 UNIT CAPSULE PO SCH (14:25)
[2018-09-12 19:50] VITALS: BP 131/79
[2018-09-12] MEDS: TEMAZEPAM 15 MG CAPSULE PO PRN (20:48)
[2018-09-12] MEDS: ATORVASTATIN 40 MG TABLET PO SCH (20:48)
[2018-09-13 02:00] VITALS: BP 115/73
[2018-09-13 05:25] LABS: BASOPHILS # (AUTO) 0.03 x10^3/uL (0-0.1); BASOPHILS % (AUTO) 0 % (0-1); EOSINOPHILS % (AUTO) 4 % (1-7); LYMPHOCYTES # (AUTO) 0.86 x10^3/uL (1-3.4); LYMPHOCYTES % (AUTO) 6 % (22-44); MD NO; MEAN CORPUSCULAR HEMOGLOBIN 30.3 pg (27.5-34.5); MEAN CORPUSCULAR HGB CONC 33.7 g/dL (33.2-36.2); MEAN CORPUSCULAR VOLUME 90.1 fL (81-97); MEAN PLATELET VOLUME 7.5 fL (7.4-10.4); MONOCYTES # (AUTO) 1.01 x10^3/uL (0.2-0.8); MONOCYTES % (AUTO) 7 % (2-9); NEUTROPHILS # (AUTO) 12.34 x10^3/uL (1.8-6.8); NEUTROPHILS % (AUTO) 83 % (42-75); PLATELET COUNT 426 x10^3/uL (130-400); RED BLOOD COUNT 3.05 x10^6/uL (4.38-5.82); RED CELL DISTRIBUTION WIDTH 16.7 % (9.4-14.8)
[2018-09-13 05:29] LABS: ANION GAP 5 mmol/L (5-15); CALCIUM 8.8 mg/dL (8.5-10.1); CHLORIDE 105 mmol/L (98-107)
[2018-09-13 05:30] LABS: CREATININE 1.65 mg/dL (0.7-1.3)
[2018-09-13] MEDS: CARVEDILOL 3.125 MG TABLET PO SCH (06:14)
[2018-09-13] MEDS: LEVOTHYROXINE 50 MCG TABLET PO SCH (06:15)
[2018-09-13 07:05] VITALS: BP 107/72
[2018-09-13] MEDS: APIXABAN 5 MG TABLET PO SCH (08:48)
[2018-09-13] MEDS: DOCUSATE 100 MG CAPSULE PO SCH (08:48)
[2018-09-13] MEDS: CLOPIDOGREL 75 MG TABLET PO SCH (08:49)
[2018-09-13] MEDS: AMIODARONE 200 MG TABLET PO SCH (08:50)
[2018-09-13] MEDS: POLYETHYLENE GLYCOL 17 GM PACKET NG PRN (08:55)
[2018-09-13] MEDS: SODIUM CHLORIDE FLUSH 10ML SYR IVF SCH (11:11)
[2018-09-13] MEDS ORDERED: HYDR-3341 PO (12:37)
[2018-09-13] MEDS ORDERED: ISOS30TA8 PO (12:37)
[2018-09-14] MEDS ORDERED: ISOSORBIDE MONONITRATE ER 30 MG TABLET PO SCH (09:00)
== END 2018-09-13 14:13 | DRG 233 ==
LOC: ED 16:17 → EDIP 16:32 → CCU 17:08 → 5SO 09-04 14:07
PROVIDERS: ADMIT Internal Medicine; ATTEND Internal Medicine
PROC: 5A1945Z Respiratory Ventilation, 24-96 Consecutive Hours (ICD-10-PCS; principal; 2018-08-03)
PROC: 0BH18EZ Insertion of Endotracheal Airway into Trachea, Via Natural or Artificial Opening Endoscopic (ICD-10-PCS; 2018-08-03)
PROC: 5A12012 Performance of Cardiac Output, Single, Manual (ICD-10-PCS; 2018-08-03)
PROC: 03HY32Z Insertion of Monitoring Device into Upper Artery, Percutaneous Approach (ICD-10-PCS; 2018-08-03)
PROC: 4A133B1 Monitoring of Arterial Pressure, Peripheral, Percutaneous Approach (ICD-10-PCS; 2018-08-03)
PROC: 4A133J1 Monitoring of Arterial Pulse, Peripheral, Percutaneous Approach (ICD-10-PCS; 2018-08-03)
PROC: 05HM33Z Insertion of Infusion Device into Right Internal Jugular Vein, Percutaneous Approach (ICD-10-PCS; 2018-08-03)
PROC: B543ZZA Ultrasonography of Right Jugular Veins, Guidance (ICD-10-PCS; 2018-08-03)
PROC: 0WCG0ZZ Extirpation of Matter from Peritoneal Cavity, Open Approach (ICD-10-PCS; 2018-08-12)
PROC: 0WJG0ZZ Inspection of Peritoneal Cavity, Open Approach (ICD-10-PCS; 2018-08-12)
PROC: 30233L1 Transfusion of Nonautologous Fresh Plasma into Peripheral Vein, Percutaneous Approach (ICD-10-PCS; 2018-08-12)
PROC: 30233N1 Transfusion of Nonautologous Red Blood Cells into Peripheral Vein, Percutaneous Approach (ICD-10-PCS; 2018-08-12)
PROC: 30233R1 Transfusion of Nonautologous Platelets into Peripheral Vein, Percutaneous Approach (ICD-10-PCS; 2018-08-12)
PROC: 30233K1 Transfusion of Nonautologous Frozen Plasma into Peripheral Vein, Percutaneous Approach (ICD-10-PCS; 2018-08-12)
PROC: 5A12012 Performance of Cardiac Output, Single, Manual (ICD-10-PCS; 2018-08-12)
PROC: 0WJG0ZZ Inspection of Peritoneal Cavity, Open Approach (ICD-10-PCS; 2018-08-13)
PROC: 0W9G0ZZ Drainage of Peritoneal Cavity, Open Approach (ICD-10-PCS; 2018-08-13)
PROC: 02HV33Z Insertion of Infusion Device into Superior Vena Cava, Percutaneous Approach (ICD-10-PCS; 2018-08-13)
PROC: B548ZZA Ultrasonography of Superior Vena Cava, Guidance (ICD-10-PCS; 2018-08-13)
PROC: 5A1D70Z Performance of Urinary Filtration, Intermittent, Less than 6 Hours Per Day (ICD-10-PCS; 2018-08-13)
PROC: 5A1D70Z Performance of Urinary Filtration, Intermittent, Less than 6 Hours Per Day (ICD-10-PCS; 2018-08-14)
PROC: 5A1D70Z Performance of Urinary Filtration, Intermittent, Less than 6 Hours Per Day (ICD-10-PCS; 2018-08-15)
PROC: 5A1D70Z Performance of Urinary Filtration, Intermittent, Less than 6 Hours Per Day (ICD-10-PCS; 2018-08-18)
PROC: 5A1D70Z Performance of Urinary Filtration, Intermittent, Less than 6 Hours Per Day (ICD-10-PCS; 2018-08-20)
PROC: 5A1D70Z Performance of Urinary Filtration, Intermittent, Less than 6 Hours Per Day (ICD-10-PCS; 2018-08-21)
PROC: 4A023N7 Measurement of Cardiac Sampling and Pressure, Left Heart, Percutaneous Approach (ICD-10-PCS; 2018-08-22)
PROC: B2111ZZ Fluoroscopy of Multiple Coronary Arteries using Low Osmolar Contrast (ICD-10-PCS; 2018-08-22)
PROC: B2151ZZ Fluoroscopy of Left Heart using Low Osmolar Contrast (ICD-10-PCS; 2018-08-22)
PROC: B41D1ZZ Fluoroscopy of Aorta and Bilateral Lower Extremity Arteries using Low Osmolar Contrast (ICD-10-PCS; 2018-08-22)
PROC: 5A1D70Z Performance of Urinary Filtration, Intermittent, Less than 6 Hours Per Day (ICD-10-PCS; 2018-08-22)
PROC: 5A1D70Z Performance of Urinary Filtration, Intermittent, Less than 6 Hours Per Day (ICD-10-PCS; 2018-08-23)
PROC: 0DBK8ZZ Excision of Ascending Colon, Via Natural or Artificial Opening Endoscopic (ICD-10-PCS; 2018-08-24)
PROC: 0DBN8ZX Excision of Sigmoid Colon, Via Natural or Artificial Opening Endoscopic, Diagnostic (ICD-10-PCS; 2018-08-24)
PROC: 5A1D70Z Performance of Urinary Filtration, Intermittent, Less than 6 Hours Per Day (ICD-10-PCS; 2018-08-24)
PROC: 5A1D70Z Performance of Urinary Filtration, Intermittent, Less than 6 Hours Per Day (ICD-10-PCS; 2018-08-26)
PROC: 0JH63XZ Insertion of Tunneled Vascular Access Device into Chest Subcutaneous Tissue and Fascia, Percutaneous Approach (ICD-10-PCS; 2018-08-27)
PROC: 02HV33Z Insertion of Infusion Device into Superior Vena Cava, Percutaneous Approach (ICD-10-PCS; 2018-08-27)
PROC: B5181ZA Fluoroscopy of Superior Vena Cava using Low Osmolar Contrast, Guidance (ICD-10-PCS; 2018-08-27)
PROC: 5A1D70Z Performance of Urinary Filtration, Intermittent, Less than 6 Hours Per Day (ICD-10-PCS; 2018-08-28)
PROC: 5A1D70Z Performance of Urinary Filtration, Intermittent, Less than 6 Hours Per Day (ICD-10-PCS; 2018-08-30)
PROC: 021209W Bypass Coronary Artery, Three Arteries from Aorta with Autologous Venous Tissue, Open Approach (ICD-10-PCS; 2018-09-02)
PROC: 06BP4ZZ Excision of Right Saphenous Vein, Percutaneous Endoscopic Approach (ICD-10-PCS; 2018-09-02)
PROC: 0PQ00ZZ Repair Sternum, Open Approach (ICD-10-PCS; 2018-09-02)
PROC: 0PS Upper Bones, Reposition (ICD-10-PCS; 2018-09-02)
PROC: 5A1221Z Performance of Cardiac Output, Continuous (ICD-10-PCS; 2018-09-02)
DX: I21.4 Non-ST elevation (NSTEMI) myocardial infarction (principal); J96.01 Acute respiratory failure with hypoxia; J69.0 Pneumonitis due to inhalation of food and vomit; K66.1 Hemoperitoneum; K72.00 Acute and subacute hepatic failure without coma; N17.0 Acute kidney failure with tubular necrosis; I49.01 Ventricular fibrillation; I46.9 Cardiac arrest, cause unspecified; Z99.11 Dependence on respirator [ventilator] status; B17.9 Acute viral hepatitis, unspecified; D62 Acute posthemorrhagic anemia; D68.69 Other thrombophilia; E46 Unspecified protein-calorie malnutrition; E87.1 Hypo-osmolality and hyponatremia; E87.2 Acidosis; G93.1 Anoxic brain damage, not elsewhere classified; J98.11 Atelectasis; K55.9 Vascular disorder of intestine, unspecified; K63.3 Ulcer of intestine; N25.81 Secondary hyperparathyroidism of renal origin; R18.8 Other ascites; I47.2 Ventricular tachycardia; I48.1 Persistent atrial fibrillation; I48.92 Unspecified atrial flutter; D12.2 Benign neoplasm of ascending colon; D72.825 Bandemia; E03.9 Hypothyroidism, unspecified; E11.65 Type 2 diabetes mellitus with hyperglycemia; E55.9 Vitamin D deficiency, unspecified; E78.5 Hyperlipidemia, unspecified; E87.6 Hypokalemia; G47.00 Insomnia, unspecified; H66.91 Otitis media, unspecified, right ear; I08.3 Combined rheumatic disorders of mitral, aortic and tricuspid valves; I11.0 Hypertensive heart disease with heart failure; I25.119 Atherosclerotic heart disease of native coronary artery with unspecified angina pectoris; I25.5 Ischemic cardiomyopathy; I48.0 Paroxysmal atrial fibrillation; I49.3 Ventricular premature depolarization; I50.9 Heart failure, unspecified; I65.23 Occlusion and stenosis of bilateral carotid arteries; K57.30 Diverticulosis of large intestine without perforation or abscess without bleeding; K59.00 Constipation, unspecified; K64.8 Other hemorrhoids; K75.89 Other specified inflammatory liver diseases; Z99.2 Dependence on renal dialysis; Z87.891 Personal history of nicotine dependence; Z68.26 Body mass index [BMI] 26.0-26.9, adult; X58.XXXA Exposure to other specified factors, initial encounter; Y93.89 Activity, other specified; Y92.89 Other specified places as the place of occurrence of the external cause; Y99.8 Other external cause status
CPT/HCPCS: 36415; 36556; 36558; 36589; 36600; 70450; 70553; 71045; 71046; 71250; 74018; 74230; 75625; 76705; 76770; 76937; 77001; 80048; 80053; 80061; 80069; 80076; 80162; 81001; 82040; 82150; 82272; 82306; 82310; 82330; 82436; 82542; 82550; 82570; 82728; 82800; 82803; 82810; 82947; 82962; 83036; 83540; 83550; 83615; 83690; 83735; 83880; 83935; 83970; 84100; 84132; 84133; 84145; 84156; 84295; 84300; 84439; 84443; 84478; 84481; 84484; 84550; 85014; 85018; 85025; 85045; 85049; 85347; 85520; 85610; 85730; 86022; 86704; 86706; 86803; 86850; 86900; 86923; 87070; 87081; 87086; 87205; 87340; 88305; 92950; 93005; 93306; 93308; 93312; 93321; 93325; 93458; 93880; 93926; 93930; 93970; 94002; 94003; 94150; 94640; 94667; 94668; 96374; 96375; 99156; 99157; 99291; A9585; C1760; C1769; C1894; G0378; J0171; J0295; J0461; J0583; J0610; J0690; J0697; J1644; J1650; J1815; J1940; J2250; J2543; J2704; J2720; J3010; J3370; J3475; J3480; J3490; J7060; J7070; J7613; P9045; P9047; C1750; C1751; C1765; C9113; J0282; J1642; J2060; J2270; J2310; J2370; J2440; J7030; J7040; J7050; P9016; P9017; P9035; Q9967

== ENCOUNTER → 2018-10-09 | Outpatient (CLI) | payer OTHER ==
[~2018-10-09] MED LIST changes: +AMIO200T42 PO; +APIX5TAB PO; +ATOR40TA78 PO; +CARV3.1212 PO; +CIPR500T3 PO; +CLOP75TA PO; +DOCU-131 PO; +ERGO500017 PO; +FURO-93 PO; +HYDR-3341 PO; +ISOS30TA8 PO; +LEVO50TA PO; +MELA3TAB2 PO; +MULT-257 PO; +OXYC5CAP2 PO; +OXYC5TAB3 PO; -PROPOFOL 10 MG/ML, 100ML IV ONE; -PROPOFOL 10 MG/ML, 20ML ONE
== END | disposition home or self-care (01) ==
LOC: CFH 15:54
PROVIDERS: ATTEND Internal Medicine Cardiovascular Disease
DX: J90 Pleural effusion, not elsewhere classified (principal); I27.0 Primary pulmonary hypertension; I50.9 Heart failure, unspecified; I43 Cardiomyopathy in diseases classified elsewhere; R60.9 Edema, unspecified; J98.11 Atelectasis; I48.91 Unspecified atrial fibrillation; E03.9 Hypothyroidism, unspecified; Z86.73 Personal history of transient ischemic attack (TIA), and cerebral infarction without residual deficits; Z95.1 Presence of aortocoronary bypass graft
CPT/HCPCS: 71046

== ENCOUNTER 2018-10-10 10:34 | Inpatient (IN) | payer OTHER ==
[~2018-10-10] VITALS: Ht 177.8 cm; Wt 70.9 kg
[~2018-10-10 10:34] MED LIST changes: -CIPR500T3 PO; -FURO-93 PO; -MELA3TAB2 PO; -MULT-257 PO; -OXYC5CAP2 PO
[2018-10-10 11:04] VITALS: BP 115/71
[2018-10-10] MEDS ORDERED: OXYC5CAP2 PO (11:28)
[2018-10-10] MEDS ORDERED: CARV3.1212 PO (11:28)
[2018-10-10] MEDS ORDERED: MELA3TAB2 PO (11:28)
[2018-10-10] MEDS ORDERED: MULT-257 PO (11:28)
[2018-10-10] MEDS ORDERED: FURO-93 PO (11:28)
[2018-10-10] MEDS ORDERED: CIPR500T3 PO (11:32)
[2018-10-10] MEDS ORDERED: AMIO200T42 PO (11:34)
[2018-10-10 11:51] LABS: ANION GAP 5 mmol/L (5-15); CALCIUM 10.2 mg/dL (8.5-10.1); CHLORIDE 103 mmol/L (98-107); CREATININE 1.45 mg/dL (0.7-1.3)
[2018-10-10 12:07] LABS: INTERNATIONAL NORMALIZED RATIO 1.32 (0.93-1.1); PROTHROMBIN TIME 13.8 Seconds (9.6-11.5)
[2018-10-10] MEDS ORDERED: PROPOFOL 10 MG/ML, 20ML ONE (12:24)
[2018-10-10] MEDS ORDERED: HEPARIN 5,000 UNITS/ML, 1ML IV ONE (14:30)
[2018-10-10 16:44] VITALS: BP 100/70
[2018-10-10] MEDS ORDERED: FUROSEMIDE 20 MG/2 ML IV SCH (17:00)
[2018-10-10 17:19] LABS: FREE T4 (FREE THYROXINE) 0.6 ng/dL (0.76-1.46)
[2018-10-10] MEDS: CARVEDILOL 3.125 MG TABLET PO SCH (17:40)
[2018-10-10] MEDS: FUROSEMIDE 20 MG/2 ML IV SCH (17:40)
[2018-10-10] MEDS: SODIUM CHLORIDE FLUSH 10ML SYR IVF SCH (20:02)
[2018-10-10] MEDS: AMIODARONE 200 MG TABLET PO SCH (20:03)
[2018-10-11 03:40] LABS: BASOPHILS # (AUTO) 0.04 x10^3/uL (0-0.1); BASOPHILS % (AUTO) 1 % (0-1); EOSINOPHILS # (AUTO) 0.16 x10^3/uL (0-0.4); EOSINOPHILS % (AUTO) 2 % (1-7); LYMPHOCYTES # (AUTO) 0.52 x10^3/uL (1-3.4); LYMPHOCYTES % (AUTO) 7 % (22-44); MD NO; MEAN CORPUSCULAR HEMOGLOBIN 30.3 pg (27.5-34.5); MEAN CORPUSCULAR HGB CONC 31.9 g/dL (33.2-36.2); MEAN CORPUSCULAR VOLUME 95.2 fL (81-97); MEAN PLATELET VOLUME 7.6 fL (7.4-10.4); MONOCYTES # (AUTO) 0.48 x10^3/uL (0.2-0.8); MONOCYTES % (AUTO) 7 % (2-9); NEUTROPHILS % (AUTO) 83 % (42-75); PLATELET COUNT 257 x10^3/uL (130-400); RED BLOOD COUNT 3.64 x10^6/uL (4.38-5.82); RED CELL DISTRIBUTION WIDTH 21.8 % (9.4-14.8)
[2018-10-11 03:44] LABS: ALBUMIN 2.2 g/dL (3.4-5.0); ANION GAP 7 mmol/L (5-15); CALCIUM 9.1 mg/dL (8.5-10.1); CHLORIDE 104 mmol/L (98-107)
[2018-10-11 03:53] LABS: ALANINE AMINOTRANSFERASE 37 U/L (12-78); ALKALINE PHOSPHATASE 112 U/L (45-117); BILIRUBIN,TOTAL 0.4 mg/dL (0.2-1.0); CREATININE 1.33 mg/dL (0.7-1.3); FREE T4 (FREE THYROXINE) 0.56 ng/dL (0.76-1.46); TOTAL PROTEIN 5.2 g/dL (6.4-8.2)
[2018-10-11 04:00] VITALS: BP 102/74
[2018-10-11] MEDS: HEPARIN 25,000 UNITS/500ML PMX 500 ML IV PRN (04:00)
[2018-10-11] MEDS: HEPARIN 5,000 UNITS/ML, 1ML IV PRN ×2 (04:01→21:37)
[2018-10-11] MEDS: LEVOTHYROXINE 100 MCG TABLET PO SCH (05:28)
[2018-10-11] MEDS: CARVEDILOL 3.125 MG TABLET PO SCH ×2 (05:28→17:34)
[2018-10-11] MEDS ORDERED: LEVOTHYROXINE 50 MCG TABLET PO SCH (06:00)
[2018-10-11] MEDS: AMIODARONE 200 MG TABLET PO SCH ×2 (09:00→21:29)
[2018-10-11] MEDS ORDERED: AMIODARONE 50 MG/ML, 3ML IVPush ONE ×5 (09:30→21:00)
[2018-10-11] MEDS ORDERED: DEXTROSE 5% IV ONE (10:00)
[2018-10-11] MEDS ORDERED: AMIODARONE IV ONE (10:00)
[2018-10-11] MEDS ORDERED: FILTER 0.22 MICRON IV ONE (10:00)
[2018-10-11] MEDS: SODIUM CHLORIDE FLUSH 10ML SYR IVF SCH ×2 (10:00→21:42)
[2018-10-11] MEDS: CLOPIDOGREL 75 MG TABLET PO SCH (10:26)
[2018-10-11] MEDS: FUROSEMIDE 20 MG/2 ML IV SCH ×2 (10:28→17:34)
[2018-10-11] MEDS ORDERED: LIDOCAINE-MPF 1%, 5ML ONE (10:38)
[2018-10-11] MEDS: LIOTHYRONINE 5 MCG TABLET PO SCH (14:17)
[2018-10-11] MEDS ORDERED: AMIODARONE 150 MG in DEXTROSE 5% 100 ML IV ONE ×2 (15:30→21:30)
[2018-10-11] MEDS ORDERED: FILTER 0.22 MICRON IV PRN (15:30)
[2018-10-11] MEDS ORDERED: CIPROFLOXACIN 500 MG TABLET PO ONE (21:00)
[2018-10-12 03:41] LABS: MEAN CORPUSCULAR HEMOGLOBIN 31.3 pg (27.5-34.5); MEAN CORPUSCULAR HGB CONC 32.9 g/dL (33.2-36.2); MEAN CORPUSCULAR VOLUME 95.3 fL (81-97); MEAN PLATELET VOLUME 7.4 fL (7.4-10.4); PLATELET COUNT 274 x10^3/uL (130-400); RED BLOOD COUNT 4.02 x10^6/uL (4.38-5.82)
[2018-10-12 03:43] LABS: ANION GAP 6 mmol/L (5-15); CALCIUM 9.1 mg/dL (8.5-10.1); CHLORIDE 103 mmol/L (98-107); CREATININE 1.36 mg/dL (0.7-1.3)
[2018-10-12 04:00] VITALS: BP 106/70
[2018-10-12 04:08] LABS: BASOPHILS # (AUTO) 0.04 x10^3/uL (0-0.1); BASOPHILS % (AUTO) 1 % (0-1); EOSINOPHILS # (AUTO) 0.15 x10^3/uL (0-0.4); EOSINOPHILS % (AUTO) 2 % (1-7); LYMPHOCYTES # (AUTO) 0.56 x10^3/uL (1-3.4); LYMPHOCYTES % (AUTO) 7 % (22-44); MD SCAN; MONOCYTES # (AUTO) 0.45 x10^3/uL (0.2-0.8); MONOCYTES % (AUTO) 6 % (2-9); NEUTROPHILS % (AUTO) 85 % (42-75)
[2018-10-12] MEDS: HEPARIN 5,000 UNITS/ML, 1ML IV PRN ×2 (04:21→17:19)
[2018-10-12] MEDS: LEVOTHYROXINE 100 MCG TABLET PO SCH (06:32)
[2018-10-12] MEDS: CARVEDILOL 3.125 MG TABLET PO SCH ×2 (06:32→17:25)
[2018-10-12] MEDS: POTASSIUM CHLORIDE 20 MEQ TAB.ER.PRT PO SCH ×2 (07:55→17:18)
[2018-10-12] MEDS: AMIODARONE 200 MG TABLET PO SCH ×2 (07:55→20:23)
[2018-10-12] MEDS: LIOTHYRONINE 5 MCG TABLET PO SCH (07:55)
[2018-10-12] MEDS: CLOPIDOGREL 75 MG TABLET PO SCH (07:55)
[2018-10-12] MEDS: FUROSEMIDE 20 MG/2 ML IV SCH ×2 (07:56→17:19)
[2018-10-12] MEDS: SODIUM CHLORIDE FLUSH 10ML SYR IVF SCH ×2 (09:00→20:22)
[2018-10-12] MEDS: HEPARIN 25,000 UNITS/500ML PMX 500 ML IV PRN ×2 (09:07→17:19)
[2018-10-12] MEDS ORDERED: AMIODARONE 200 MG TABLET PO ONE (11:00)
[2018-10-13 04:00] VITALS: BP 102/73
[2018-10-13] MEDS: HEPARIN 25,000 UNITS/500ML PMX 500 ML IV PRN ×2 (04:22→21:31)
[2018-10-13 04:38] LABS: MEAN CORPUSCULAR HEMOGLOBIN 31.3 pg (27.5-34.5); MEAN CORPUSCULAR HGB CONC 32.9 g/dL (33.2-36.2); MEAN CORPUSCULAR VOLUME 95.2 fL (81-97); MEAN PLATELET VOLUME 7.4 fL (7.4-10.4); PLATELET COUNT 265 x10^3/uL (130-400); RED CELL DISTRIBUTION WIDTH 22.6 % (9.4-14.8)
[2018-10-13 04:45] LABS: ANION GAP 3 mmol/L (5-15); CALCIUM 9.4 mg/dL (8.5-10.1); CHLORIDE 101 mmol/L (98-107); CREATININE 1.06 mg/dL (0.7-1.3)
[2018-10-13 04:50] LABS: BASOPHILS # (AUTO) 0.04 x10^3/uL (0-0.1); BASOPHILS % (AUTO) 1 % (0-1); EOSINOPHILS # (AUTO) 0.25 x10^3/uL (0-0.4); EOSINOPHILS % (AUTO) 3 % (1-7); LYMPHOCYTES # (AUTO) 0.55 x10^3/uL (1-3.4); LYMPHOCYTES % (AUTO) 7 % (22-44); MD SCAN; MONOCYTES # (AUTO) 0.48 x10^3/uL (0.2-0.8); MONOCYTES % (AUTO) 6 % (2-9); NEUTROPHILS # (AUTO) 6.56 x10^3/uL (1.8-6.8); NEUTROPHILS % (AUTO) 83 % (42-75)
[2018-10-13] MEDS: HEPARIN 5,000 UNITS/ML, 1ML IV PRN (04:59)
[2018-10-13] MEDS: CARVEDILOL 3.125 MG TABLET PO SCH ×2 (05:04→17:06)
[2018-10-13] MEDS: LEVOTHYROXINE 100 MCG TABLET PO SCH (05:04)
[2018-10-13] MEDS ORDERED: PROPOFOL 10 MG/ML, 20ML ONE (08:00)
[2018-10-13] MEDS: CLOPIDOGREL 75 MG TABLET PO SCH (08:12)
[2018-10-13] MEDS: LIOTHYRONINE 5 MCG TABLET PO SCH (08:12)
[2018-10-13] MEDS: AMIODARONE 200 MG TABLET PO SCH ×2 (08:12→21:23)
[2018-10-13] MEDS: ALBUMIN HUMAN 25% 100 ML IV SCH ×3 (08:13→23:46)
[2018-10-13] MEDS: SODIUM CHLORIDE FLUSH 10ML SYR IVF SCH ×2 (09:00→21:23)
[2018-10-13] MEDS ORDERED: FENTANYL PF 100 MCG/2ML ONE (10:47)
[2018-10-13] MEDS ORDERED: FENTANYL PF 100 MCG/2ML IVPush ONE (12:00)
[2018-10-13] MEDS: FUROSEMIDE 20 MG/2 ML IV SCH (12:41)
[2018-10-14 04:37] LABS: ANION GAP 3 mmol/L (5-15); CALCIUM 9.5 mg/dL (8.5-10.1); CHLORIDE 100 mmol/L (98-107); CREATININE 0.93 mg/dL (0.7-1.3)
[2018-10-14 04:53] VITALS: BP 101/67
[2018-10-14] MEDS: HEPARIN 5,000 UNITS/ML, 1ML IV PRN (05:12)
[2018-10-14] MEDS: CARVEDILOL 3.125 MG TABLET PO SCH ×2 (05:13→16:48)
[2018-10-14] MEDS: LEVOTHYROXINE 100 MCG TABLET PO SCH (05:13)
[2018-10-14] MEDS ORDERED: FUROSEMIDE 20 MG/2 ML IV SCH (09:00)
[2018-10-14] MEDS ORDERED: POLYETHYLENE GLYCOL 17 GM PACKET ONE (09:06)
[2018-10-14] MEDS: LIOTHYRONINE 5 MCG TABLET PO SCH (09:11)
[2018-10-14] MEDS: POTASSIUM CHLORIDE 20 MEQ TAB.ER.PRT PO SCH ×2 (09:11→16:48)
[2018-10-14] MEDS: FUROSEMIDE 20 MG/2 ML IV SCH (09:11)
[2018-10-14] MEDS: SODIUM CHLORIDE FLUSH 10ML SYR IVF SCH ×2 (09:12→20:34)
[2018-10-14] MEDS: AMIODARONE 200 MG TABLET PO SCH ×2 (09:12→20:35)
[2018-10-14] MEDS: ALBUMIN HUMAN 25% 100 ML IV SCH ×2 (09:13→16:47)
[2018-10-14] MEDS: POLYETHYLENE GLYCOL 17 GM PACKET PO PRN (09:15)
[2018-10-14] MEDS: CLOPIDOGREL 75 MG TABLET PO SCH (09:15)
[2018-10-14] MEDS ORDERED: POLYETHYLENE GLYCOL 17 GM PACKET PO PRN (09:30)
[2018-10-14] MEDS: HEPARIN 25,000 UNITS/500ML PMX 500 ML IV PRN (13:23)
[2018-10-14 20:40] VITALS: BP 102/71
[2018-10-15 00:30] VITALS: BP 109/66
[2018-10-15] MEDS: ALBUMIN HUMAN 25% 100 ML IV SCH ×2 (00:30→08:00)
[2018-10-15 05:13] LABS: CALCIUM 10.1 mg/dL (8.5-10.1); CHLORIDE 98 mmol/L (98-107); CREATININE 0.98 mg/dL (0.7-1.3)
[2018-10-15] MEDS: HEPARIN 25,000 UNITS/500ML PMX 500 ML IV PRN (05:17)
[2018-10-15] MEDS: HEPARIN 5,000 UNITS/ML, 1ML IV PRN (05:18)
[2018-10-15 05:22] LABS: FREE T4 (FREE THYROXINE) 0.73 ng/dL (0.76-1.46)
[2018-10-15] MEDS: CARVEDILOL 3.125 MG TABLET PO SCH ×2 (05:22→18:00)
[2018-10-15] MEDS: LEVOTHYROXINE 100 MCG TABLET PO SCH (05:22)
[2018-10-15 05:25] LABS: ANION GAP 3 mmol/L (5-15)
[2018-10-15 07:25] VITALS: BP 110/77
[2018-10-15] MEDS: LIOTHYRONINE 5 MCG TABLET PO SCH (09:00)
[2018-10-15] MEDS: SODIUM CHLORIDE FLUSH 10ML SYR IVF SCH ×2 (09:00→22:03)
[2018-10-15] MEDS: AMIODARONE 200 MG TABLET PO SCH ×2 (09:00→22:02)
[2018-10-15] MEDS: APIXABAN 5 MG TABLET PO SCH ×2 (09:00→22:02)
[2018-10-15] MEDS: CLOPIDOGREL 75 MG TABLET PO SCH (09:00)
[2018-10-15] MEDS ORDERED: FUROSEMIDE 40 MG TABLET PO SCH (09:00)
[2018-10-15] MEDS: POLYETHYLENE GLYCOL 17 GM PACKET PO PRN (09:26)
[2018-10-15 14:03] VITALS: BP 116/73
[2018-10-15 20:05] VITALS: BP 105/66
[2018-10-15] MEDS: FUROSEMIDE 40 MG TABLET PO SCH (22:03)
[2018-10-16 01:17] VITALS: BP 104/76
[2018-10-16] MEDS: LEVOTHYROXINE 100 MCG TABLET PO SCH (06:19)
[2018-10-16] MEDS: CARVEDILOL 3.125 MG TABLET PO SCH ×2 (06:20→18:00)
[2018-10-16 06:21] VITALS: BP 102/69
[2018-10-16] MEDS: SODIUM CHLORIDE FLUSH 10ML SYR IVF SCH ×2 (08:04→20:29)
[2018-10-16] MEDS: APIXABAN 5 MG TABLET PO SCH ×2 (08:05→20:29)
[2018-10-16] MEDS: LIOTHYRONINE 5 MCG TABLET PO SCH (08:05)
[2018-10-16] MEDS: AMIODARONE 200 MG TABLET PO SCH ×2 (08:06→20:29)
[2018-10-16] MEDS: CLOPIDOGREL 75 MG TABLET PO SCH (08:06)
[2018-10-16] MEDS: FUROSEMIDE 40 MG TABLET PO SCH (08:06)
[2018-10-16] MEDS: POLYETHYLENE GLYCOL 17 GM PACKET PO PRN (12:07)
[2018-10-16] MEDS: LISINOPRIL 5 MG TABLET PO SCH (12:08)
[2018-10-16 12:18] LABS: ANION GAP 4 mmol/L (5-15); CALCIUM 10.1 mg/dL (8.5-10.1); CHLORIDE 98 mmol/L (98-107); CREATININE 0.98 mg/dL (0.7-1.3)
[2018-10-16 15:00] VITALS: BP 98/71
[2018-10-16 19:52] VITALS: BP 98/64
[2018-10-17] VITALS (7 sets, daily range): BP systolic 92–109; BP diastolic 59–75
[2018-10-17 05:10] LABS: BASOPHILS # (AUTO) 0.02 x10^3/uL (0-0.1); BASOPHILS % (AUTO) 0 % (0-1); EOSINOPHILS # (AUTO) 0.18 x10^3/uL (0-0.4); EOSINOPHILS % (AUTO) 3 % (1-7); LYMPHOCYTES # (AUTO) 0.65 x10^3/uL (1-3.4); LYMPHOCYTES % (AUTO) 10 % (22-44); MD NO; MEAN CORPUSCULAR HEMOGLOBIN 31.1 pg (27.5-34.5); MEAN CORPUSCULAR HGB CONC 32.4 g/dL (33.2-36.2); MEAN CORPUSCULAR VOLUME 96.2 fL (81-97); MEAN PLATELET VOLUME 7.9 fL (7.4-10.4); MONOCYTES # (AUTO) 0.58 x10^3/uL (0.2-0.8); MONOCYTES % (AUTO) 9 % (2-9); NEUTROPHILS # (AUTO) 5.35 x10^3/uL (1.8-6.8); NEUTROPHILS % (AUTO) 79 % (42-75); PLATELET COUNT 313 x10^3/uL (130-400); RED BLOOD COUNT 3.69 x10^6/uL (4.38-5.82); RED CELL DISTRIBUTION WIDTH 21.4 % (9.4-14.8)
[2018-10-17 05:21] LABS: ANION GAP 5 mmol/L (5-15); CHLORIDE 96 mmol/L (98-107); CREATININE 1.04 mg/dL (0.7-1.3)
[2018-10-17] MEDS: CARVEDILOL 3.125 MG TABLET PO SCH ×2 (06:28→18:14)
[2018-10-17] MEDS: LEVOTHYROXINE 100 MCG TABLET PO SCH (06:29)
[2018-10-17] MEDS ORDERED: PROPOFOL 10 MG/ML, 20ML ONE (09:07)
[2018-10-17] MEDS ORDERED: EPHEDRINE 50 MG/ML, 1ML ONE (09:07)
[2018-10-17] MEDS: LIOTHYRONINE 5 MCG TABLET PO SCH (12:09)
[2018-10-17] MEDS: CLOPIDOGREL 75 MG TABLET PO SCH (12:09)
[2018-10-17] MEDS: AMIODARONE 200 MG TABLET PO SCH ×2 (12:09→21:55)
[2018-10-17] MEDS: SODIUM CHLORIDE FLUSH 10ML SYR IVF SCH ×2 (12:10→21:32)
[2018-10-17] MEDS: APIXABAN 5 MG TABLET PO SCH ×2 (12:10→21:32)
[2018-10-17] MEDS: FUROSEMIDE 40 MG TABLET PO SCH (12:10)
[2018-10-17] MEDS: LISINOPRIL 5 MG TABLET PO SCH (12:16)
[2018-10-17] MEDS: POLYETHYLENE GLYCOL 17 GM PACKET PO PRN (12:17)
[2018-10-18] VITALS (8 sets, daily range): BP systolic 89–108; BP diastolic 61–71
[2018-10-18 05:37] LABS: CHLORIDE 96 mmol/L (98-107)
[2018-10-18 05:42] LABS: ANION GAP 2 mmol/L (5-15); CALCIUM 10.2 mg/dL (8.5-10.1); CREATININE 1.07 mg/dL (0.7-1.3)
[2018-10-18] MEDS: LEVOTHYROXINE 100 MCG TABLET PO SCH (05:53)
[2018-10-18] MEDS: CARVEDILOL 3.125 MG TABLET PO SCH ×2 (05:53→17:02)
[2018-10-18] MEDS: AMIODARONE 200 MG TABLET PO SCH ×2 (09:37→21:35)
[2018-10-18] MEDS: LISINOPRIL 5 MG TABLET PO SCH (09:37)
[2018-10-18] MEDS: LIOTHYRONINE 5 MCG TABLET PO SCH (09:38)
[2018-10-18] MEDS: FUROSEMIDE 40 MG TABLET PO SCH (09:39)
[2018-10-18] MEDS: APIXABAN 5 MG TABLET PO SCH ×2 (09:39→21:32)
[2018-10-18] MEDS: CLOPIDOGREL 75 MG TABLET PO SCH (09:39)
[2018-10-18] MEDS: SODIUM CHLORIDE FLUSH 10ML SYR IVF SCH ×2 (09:40→21:32)
[2018-10-18] MEDS: SPIRONOLACTONE 25 MG TABLET PO SCH (12:46)
[2018-10-18] MEDS: POLYETHYLENE GLYCOL 17 GM PACKET PO PRN (16:43)
[2018-10-19] VITALS (7 sets, daily range): BP systolic 83–104; BP diastolic 53–73
[2018-10-19] MEDS: CARVEDILOL 3.125 MG TABLET PO SCH ×2 (05:24→18:04)
[2018-10-19] MEDS: LEVOTHYROXINE 100 MCG TABLET PO SCH (05:24)
[2018-10-19 05:30] LABS: ANION GAP 4 mmol/L (5-15); CALCIUM 10.1 mg/dL (8.5-10.1); CHLORIDE 97 mmol/L (98-107)
[2018-10-19 05:32] LABS: CREATININE 1.09 mg/dL (0.7-1.3)
[2018-10-19] MEDS: LISINOPRIL 5 MG TABLET PO SCH (09:44)
[2018-10-19] MEDS: SODIUM CHLORIDE FLUSH 10ML SYR IVF SCH ×2 (09:44→21:41)
[2018-10-19] MEDS: APIXABAN 5 MG TABLET PO SCH ×2 (09:44→21:40)
[2018-10-19] MEDS: CLOPIDOGREL 75 MG TABLET PO SCH (09:45)
[2018-10-19] MEDS: LIOTHYRONINE 5 MCG TABLET PO SCH (09:45)
[2018-10-19] MEDS: AMIODARONE 200 MG TABLET PO SCH ×2 (09:46→21:40)
[2018-10-19] MEDS: FUROSEMIDE 40 MG TABLET PO SCH (09:57)
[2018-10-19] MEDS: POLYETHYLENE GLYCOL 17 GM PACKET PO PRN (13:27)
[2018-10-19] MEDS: SPIRONOLACTONE 25 MG TABLET PO SCH (13:28)
[2018-10-20 04:54] VITALS: BP 100/67
[2018-10-20] MEDS: LEVOTHYROXINE 100 MCG TABLET PO SCH (05:00)
[2018-10-20] MEDS: CARVEDILOL 3.125 MG TABLET PO SCH ×2 (05:00→18:21)
[2018-10-20 05:29] LABS: BASOPHILS # (AUTO) 0.04 x10^3/uL (0-0.1); BASOPHILS % (AUTO) 1 % (0-1); EOSINOPHILS # (AUTO) 0.18 x10^3/uL (0-0.4); EOSINOPHILS % (AUTO) 2 % (1-7); LYMPHOCYTES # (AUTO) 0.65 x10^3/uL (1-3.4); LYMPHOCYTES % (AUTO) 9 % (22-44); MD NO; MEAN CORPUSCULAR HEMOGLOBIN 30.5 pg (27.5-34.5); MEAN CORPUSCULAR HGB CONC 32.1 g/dL (33.2-36.2); MEAN CORPUSCULAR VOLUME 95.2 fL (81-97); MEAN PLATELET VOLUME 8.2 fL (7.4-10.4); MONOCYTES # (AUTO) 1.02 x10^3/uL (0.2-0.8); MONOCYTES % (AUTO) 14 % (2-9); NEUTROPHILS # (AUTO) 5.44 x10^3/uL (1.8-6.8); NEUTROPHILS % (AUTO) 74 % (42-75); PLATELET COUNT 346 x10^3/uL (130-400); RED BLOOD COUNT 3.58 x10^6/uL (4.38-5.82); RED CELL DISTRIBUTION WIDTH 20.9 % (9.4-14.8)
[2018-10-20 05:37] LABS: ANION GAP 6 mmol/L (5-15); CALCIUM 9.8 mg/dL (8.5-10.1); CHLORIDE 96 mmol/L (98-107)
[2018-10-20 07:34] VITALS: BP 110/76
[2018-10-20 09:13] VITALS: BP 101/70
[2018-10-20] MEDS: APIXABAN 5 MG TABLET PO SCH ×2 (09:17→20:34)
[2018-10-20] MEDS: AMIODARONE 200 MG TABLET PO SCH ×2 (09:17→20:34)
[2018-10-20] MEDS: FUROSEMIDE 40 MG TABLET PO SCH (09:18)
[2018-10-20] MEDS: LISINOPRIL 5 MG TABLET PO SCH (09:18)
[2018-10-20] MEDS: CLOPIDOGREL 75 MG TABLET PO SCH (09:18)
[2018-10-20] MEDS: SODIUM CHLORIDE FLUSH 10ML SYR IVF SCH ×2 (09:18→20:34)
[2018-10-20] MEDS: LIOTHYRONINE 5 MCG TABLET PO SCH (09:19)
[2018-10-20] MEDS: SPIRONOLACTONE 25 MG TABLET PO SCH (12:37)
[2018-10-20] MEDS: POLYETHYLENE GLYCOL 17 GM PACKET PO PRN (12:38)
[2018-10-20 13:56] VITALS: BP 95/65
[2018-10-20 20:00] VITALS: BP 107/69
[2018-10-21 00:44] VITALS: BP 108/70
[2018-10-21 06:03] LABS: BASOPHILS # (AUTO) 0.04 x10^3/uL (0-0.1); BASOPHILS % (AUTO) 1 % (0-1); EOSINOPHILS # (AUTO) 0.11 x10^3/uL (0-0.4); EOSINOPHILS % (AUTO) 2 % (1-7); LYMPHOCYTES # (AUTO) 0.79 x10^3/uL (1-3.4); LYMPHOCYTES % (AUTO) 11 % (22-44); MD NO; MEAN CORPUSCULAR HEMOGLOBIN 31.5 pg (27.5-34.5); MEAN CORPUSCULAR HGB CONC 33.3 g/dL (33.2-36.2); MEAN CORPUSCULAR VOLUME 94.7 fL (81-97); MEAN PLATELET VOLUME 8.1 fL (7.4-10.4); MONOCYTES # (AUTO) 0.99 x10^3/uL (0.2-0.8); MONOCYTES % (AUTO) 13 % (2-9); NEUTROPHILS # (AUTO) 5.44 x10^3/uL (1.8-6.8); NEUTROPHILS % (AUTO) 74 % (42-75); PLATELET COUNT 371 x10^3/uL (130-400); RED CELL DISTRIBUTION WIDTH 20.5 % (9.4-14.8)
[2018-10-21] MEDS: CARVEDILOL 3.125 MG TABLET PO SCH ×2 (06:11→18:19)
[2018-10-21] MEDS: LEVOTHYROXINE 100 MCG TABLET PO SCH (06:11)
[2018-10-21 06:14] LABS: ANION GAP 1 mmol/L (5-15); CALCIUM 10.1 mg/dL (8.5-10.1); CHLORIDE 97 mmol/L (98-107); CREATININE 1.05 mg/dL (0.7-1.3)
[2018-10-21 07:21] VITALS: BP 109/54
[2018-10-21] MEDS: CLOPIDOGREL 75 MG TABLET PO SCH (09:30)
[2018-10-21] MEDS: FUROSEMIDE 40 MG TABLET PO SCH (09:30)
[2018-10-21] MEDS: LIOTHYRONINE 5 MCG TABLET PO SCH (09:31)
[2018-10-21] MEDS: APIXABAN 5 MG TABLET PO SCH ×2 (09:31→20:42)
[2018-10-21] MEDS: AMIODARONE 200 MG TABLET PO SCH ×2 (09:31→20:43)
[2018-10-21] MEDS: LISINOPRIL 5 MG TABLET PO SCH (09:31)
[2018-10-21] MEDS: SODIUM CHLORIDE FLUSH 10ML SYR IVF SCH ×2 (09:31→20:43)
[2018-10-21] MEDS ORDERED: LIDOCAINE-MPF 1%, 5ML ONE ×2 (11:02→14:15)
[2018-10-21] MEDS: POLYETHYLENE GLYCOL 17 GM PACKET PO PRN (13:37)
[2018-10-21 13:42] VITALS: BP 97/71
[2018-10-21] MEDS: SPIRONOLACTONE 25 MG TABLET PO SCH (13:43)
[2018-10-21] MEDS: ALBUMIN HUMAN 25% 100 ML IV SCH (18:13)
[2018-10-21 20:40] VITALS: BP 96/45
[2018-10-21 20:50] VITALS: BP 91/67
[2018-10-22] MEDS: ALBUMIN HUMAN 25% 100 ML IV SCH ×4 (01:04→19:42)
[2018-10-22 01:48] VITALS: BP 94/55
[2018-10-22 06:22] VITALS: BP 93/56
[2018-10-22] MEDS: CARVEDILOL 3.125 MG TABLET PO SCH ×2 (06:24→20:22)
[2018-10-22] MEDS: LEVOTHYROXINE 100 MCG TABLET PO SCH (06:24)
[2018-10-22 06:25] LABS: BASOPHILS # (AUTO) 0.06 x10^3/uL (0-0.1); BASOPHILS % (AUTO) 1 % (0-1); EOSINOPHILS # (AUTO) 0.11 x10^3/uL (0-0.4); EOSINOPHILS % (AUTO) 2 % (1-7); LYMPHOCYTES # (AUTO) 0.73 x10^3/uL (1-3.4); LYMPHOCYTES % (AUTO) 11 % (22-44); MD NO; MEAN CORPUSCULAR HEMOGLOBIN 31.3 pg (27.5-34.5); MEAN CORPUSCULAR HGB CONC 33.2 g/dL (33.2-36.2); MEAN PLATELET VOLUME 8.1 fL (7.4-10.4); MONOCYTES # (AUTO) 0.79 x10^3/uL (0.2-0.8); MONOCYTES % (AUTO) 12 % (2-9); NEUTROPHILS # (AUTO) 5.03 x10^3/uL (1.8-6.8); NEUTROPHILS % (AUTO) 75 % (42-75); PLATELET COUNT 292 x10^3/uL (130-400); RED BLOOD COUNT 3.15 x10^6/uL (4.38-5.82); RED CELL DISTRIBUTION WIDTH 20.2 % (9.4-14.8)
[2018-10-22 06:27] LABS: CALCIUM 9.6 mg/dL (8.5-10.1); CHLORIDE 99 mmol/L (98-107)
[2018-10-22 06:41] LABS: ALANINE AMINOTRANSFERASE 34 U/L (12-78); ALBUMIN 2.9 g/dL (3.4-5.0); ALKALINE PHOSPHATASE 69 U/L (45-117); ANION GAP 5 mmol/L (5-15); BILIRUBIN,TOTAL 0.6 mg/dL (0.2-1.0); CREATININE 1.06 mg/dL (0.7-1.3); FREE T4 (FREE THYROXINE) 0.79 ng/dL (0.76-1.46); TOTAL PROTEIN 5.4 g/dL (6.4-8.2)
[2018-10-22 07:54] VITALS: BP 93/62
[2018-10-22] MEDS: SODIUM CHLORIDE FLUSH 10ML SYR IVF SCH ×2 (09:00→20:22)
[2018-10-22] MEDS: AMIODARONE 200 MG TABLET PO SCH (11:44)
[2018-10-22] MEDS: FUROSEMIDE 40 MG TABLET PO SCH (11:44)
[2018-10-22] MEDS: APIXABAN 5 MG TABLET PO SCH (11:44)
[2018-10-22] MEDS: LISINOPRIL 5 MG TABLET PO SCH (11:45)
[2018-10-22] MEDS: LIOTHYRONINE 5 MCG TABLET PO SCH (11:45)
[2018-10-22] MEDS: CLOPIDOGREL 75 MG TABLET PO SCH (11:45)
[2018-10-22] MEDS: POLYETHYLENE GLYCOL 17 GM PACKET PO PRN (11:45)
[2018-10-22 13:10] VITALS: BP 99/61
[2018-10-22] MEDS: SPIRONOLACTONE 25 MG TABLET PO SCH (13:29)
[2018-10-22] MEDS ORDERED: SODIUM CHLORIDE 0.9% 1,000 ML IV SCH (14:17)
[2018-10-22 18:07] VITALS: BP 88/58
[2018-10-22 19:21] VITALS: BP 99/66
[2018-10-23 01:03] VITALS: BP 95/66
[2018-10-23] MEDS: ALBUMIN HUMAN 25% 100 ML IV SCH ×3 (01:41→13:00)
[2018-10-23 05:33] LABS: MEAN CORPUSCULAR HEMOGLOBIN 30.8 pg (27.5-34.5); MEAN CORPUSCULAR HGB CONC 32.6 g/dL (33.2-36.2); MEAN CORPUSCULAR VOLUME 94.6 fL (81-97); MEAN PLATELET VOLUME 8.2 fL (7.4-10.4); PLATELET COUNT 301 x10^3/uL (130-400); RED BLOOD COUNT 3.15 x10^6/uL (4.38-5.82); RED CELL DISTRIBUTION WIDTH 20.3 % (9.4-14.8)
[2018-10-23 05:38] LABS: ALBUMIN 3.7 g/dL (3.4-5.0); ANION GAP 4 mmol/L (5-15); CALCIUM 10.1 mg/dL (8.5-10.1); CHLORIDE 99 mmol/L (98-107); CREATININE 1.12 mg/dL (0.7-1.3)
[2018-10-23 05:55] LABS: BASOPHILS # (AUTO) 0.04 x10^3/uL (0-0.1); BASOPHILS % (AUTO) 1 % (0-1); EOSINOPHILS # (AUTO) 0.08 x10^3/uL (0-0.4); EOSINOPHILS % (AUTO) 1 % (1-7); LYMPHOCYTES # (AUTO) 0.72 x10^3/uL (1-3.4); LYMPHOCYTES % (AUTO) 9 % (22-44); MD SCAN; MONOCYTES # (AUTO) 0.85 x10^3/uL (0.2-0.8); MONOCYTES % (AUTO) 11 % (2-9); NEUTROPHILS # (AUTO) 6.02 x10^3/uL (1.8-6.8); NEUTROPHILS % (AUTO) 78 % (42-75)
[2018-10-23] MEDS: CARVEDILOL 3.125 MG TABLET PO SCH ×2 (06:46→18:00)
[2018-10-23] MEDS: LEVOTHYROXINE 100 MCG TABLET PO SCH (06:47)
[2018-10-23 08:00] VITALS: BP 90/65
[2018-10-23] MEDS: SODIUM CHLORIDE FLUSH 10ML SYR IVF SCH ×2 (09:00→20:51)
[2018-10-23] MEDS: FUROSEMIDE 40 MG TABLET PO SCH (09:50)
[2018-10-23] MEDS: LISINOPRIL 5 MG TABLET PO SCH (09:53)
[2018-10-23] MEDS: CLOPIDOGREL 75 MG TABLET PO SCH (10:04)
[2018-10-23] MEDS: LIOTHYRONINE 5 MCG TABLET PO SCH (10:05)
[2018-10-23] MEDS: POLYETHYLENE GLYCOL 17 GM PACKET PO PRN (10:11)
[2018-10-23] MEDS: SPIRONOLACTONE 25 MG TABLET PO SCH (13:00)
[2018-10-23] MEDS ORDERED: MIDAZOLAM 1 MG/ML, 2ML ONE (13:32)
[2018-10-23] MEDS ORDERED: FENTANYL PF 250 MCG/5ML ONE (13:33)
[2018-10-23] MEDS ORDERED: DEXAMETHASONE 4 MG/ML, 1ML ONE ×3 (13:33→14:33)
[2018-10-23] MEDS ORDERED: PHENYLEPHRINE 10 MG/ML ONE (14:33)
[2018-10-23] MEDS ORDERED: NEOSTIGMINE 1 MG/ML, 10ML ONE (14:33)
[2018-10-23] MEDS ORDERED: GLYCOPYRROLATE 0.2MG/1ML, 5ML ONE (14:33)
[2018-10-23] MEDS ORDERED: PROPOFOL 10 MG/ML, 20ML ONE (14:33)
[2018-10-23] MEDS ORDERED: ROCURONIUM 10 MG/ML,10ML ONE (14:33)
[2018-10-23] MEDS ORDERED: ADENOSINE 6 MG/2 ML ONE (14:49)
[2018-10-23] MEDS ORDERED: ISOPROTERENOL 0.2MG/ML, 5ML ONE (14:50)
[2018-10-23] MEDS ORDERED: LIDOCAINE 1%, 20ML ONE (14:53)
[2018-10-23] MEDS ORDERED: ACETAMINOPHEN 325 MG TABLET PO PRN ×2 (16:00→16:30)
[2018-10-23] MEDS ORDERED: MEPERIDINE/PF 25MG/0.5ML IVPush PRN (16:30)
[2018-10-23] MEDS ORDERED: MORPHINE SULFATE 4 MG/ML, 1ML IVPush PRN (16:30)
[2018-10-23] MEDS ORDERED: DIAZEPAM 5 MG/ML, 2ML IVPush PRN (16:30)
[2018-10-23] MEDS ORDERED: PROMETHAZINE 25 MG/ML, 1ML IV PRN (16:30)
[2018-10-23] MEDS ORDERED: hydrALAzine 20 MG/ML, 1ML IV PRN (16:30)
[2018-10-23] MEDS ORDERED: HYDROmorphone 2 MG/ML, 1ML IVPush PRN (16:30)
[2018-10-23] MEDS ORDERED: EPHEDRINE 50 MG/ML, 1ML IVPush PRN (16:30)
[2018-10-23] MEDS ORDERED: LABETALOL 5MG/ML, 20ML IV PRN (16:30)
[2018-10-23] MEDS ORDERED: FENTANYL PF 100 MCG/2ML IV PRN (16:30)
[2018-10-23] MEDS ORDERED: OXYcodone 5 MG/5 ML ORAL.SOL UDC PO PRN (16:30)
[2018-10-23] MEDS ORDERED: HALOPERIDOL 5 MG/ML IV PRN (16:30)
[2018-10-23] MEDS ORDERED: MIDAZOLAM 1 MG/ML, 2ML IV PRN (16:30)
[2018-10-23] MEDS ORDERED: PROMETHAZINE 12.5 MG SUPP PR PRN (16:30)
[2018-10-23] MEDS ORDERED: ONDANSETRON 2MG/ML, 2ML IV PRN (16:30)
[2018-10-23] MEDS ORDERED: ONDANSETRON ODT 8 MG PO PRN (16:30)
[2018-10-23] MEDS ORDERED: ALBUTEROL SULFATE 2.5 MG/3 ML NPPB PRN (16:30)
[2018-10-23] MEDS ORDERED: APIXABAN 5 MG TABLET ONE (17:19)
[2018-10-23] MEDS: APIXABAN 5 MG TABLET PO SCH (17:21)
[2018-10-24 05:03] LABS: BASOPHILS % (AUTO) 0 % (0-1); EOSINOPHILS % (AUTO) 0 % (1-7); LYMPHOCYTES # (AUTO) 0.53 x10^3/uL (1-3.4); LYMPHOCYTES % (AUTO) 7 % (22-44); MD NO; MEAN CORPUSCULAR HEMOGLOBIN 31.2 pg (27.5-34.5); MEAN CORPUSCULAR HGB CONC 33.1 g/dL (33.2-36.2); MEAN CORPUSCULAR VOLUME 94.3 fL (81-97); MEAN PLATELET VOLUME 8.6 fL (7.4-10.4); MONOCYTES # (AUTO) 0.51 x10^3/uL (0.2-0.8); MONOCYTES % (AUTO) 7 % (2-9); NEUTROPHILS # (AUTO) 6.53 x10^3/uL (1.8-6.8); NEUTROPHILS % (AUTO) 86 % (42-75); PLATELET COUNT 314 x10^3/uL (130-400); RED BLOOD COUNT 3.24 x10^6/uL (4.38-5.82); RED CELL DISTRIBUTION WIDTH 19.7 % (9.4-14.8)
[2018-10-24 05:08] LABS: ALBUMIN 3.7 g/dL (3.4-5.0); ANION GAP 6 mmol/L (5-15); CALCIUM 9.9 mg/dL (8.5-10.1); CHLORIDE 100 mmol/L (98-107)
[2018-10-24 05:12] LABS: ALANINE AMINOTRANSFERASE 85 U/L (12-78); ALKALINE PHOSPHATASE 108 U/L (45-117); BILIRUBIN,TOTAL 0.8 mg/dL (0.2-1.0); CREATININE 1.12 mg/dL (0.7-1.3); TOTAL PROTEIN 6.4 g/dL (6.4-8.2)
[2018-10-24] MEDS: CARVEDILOL 3.125 MG TABLET PO SCH ×2 (06:00→17:15)
[2018-10-24] MEDS: LEVOTHYROXINE 100 MCG TABLET PO SCH (06:13)
[2018-10-24 06:14] VITALS: BP 113/76
[2018-10-24] MEDS: LISINOPRIL 5 MG TABLET PO SCH (09:00)
[2018-10-24] MEDS: CLOPIDOGREL 75 MG TABLET PO SCH (09:19)
[2018-10-24] MEDS: LIOTHYRONINE 5 MCG TABLET PO SCH (09:19)
[2018-10-24] MEDS: FUROSEMIDE 40 MG TABLET PO SCH (09:19)
[2018-10-24] MEDS: APIXABAN 5 MG TABLET PO SCH ×2 (09:19→21:00)
[2018-10-24] MEDS: SODIUM CHLORIDE FLUSH 10ML SYR IVF SCH ×2 (09:21→21:00)
[2018-10-24] MEDS: SPIRONOLACTONE 25 MG TABLET PO SCH (13:10)
[2018-10-24] MEDS ORDERED: LIDOCAINE-MPF 1%, 5ML ONE (16:11)
[2018-10-24] MEDS: POLYETHYLENE GLYCOL 17 GM PACKET PO PRN (17:15)
[2018-10-25 02:53] VITALS: BP 95/61
[2018-10-25 05:20] VITALS: BP 91/55
[2018-10-25] MEDS: CARVEDILOL 3.125 MG TABLET PO SCH ×2 (05:25→18:00)
[2018-10-25] MEDS: LEVOTHYROXINE 100 MCG TABLET PO SCH (06:09)
[2018-10-25] MEDS ORDERED: AMIODARONE 150 MG in DEXTROSE 5% 100 ML IV ONE (08:00)
[2018-10-25] MEDS ORDERED: FILTER 0.22 MICRON IV PRN (08:00)
[2018-10-25] MEDS: SODIUM CHLORIDE FLUSH 10ML SYR IVF SCH ×2 (08:05→20:21)
[2018-10-25 08:09] LABS: BASOPHILS # (AUTO) 0.02 x10^3/uL (0-0.1); BASOPHILS % (AUTO) 0 % (0-1); EOSINOPHILS # (AUTO) 0.01 x10^3/uL (0-0.4); EOSINOPHILS % (AUTO) 0 % (1-7); LYMPHOCYTES # (AUTO) 0.77 x10^3/uL (1-3.4); LYMPHOCYTES % (AUTO) 8 % (22-44); MD NO; MEAN CORPUSCULAR HEMOGLOBIN 30.4 pg (27.5-34.5); MEAN CORPUSCULAR HGB CONC 31.9 g/dL (33.2-36.2); MEAN CORPUSCULAR VOLUME 95.1 fL (81-97); MEAN PLATELET VOLUME 8.2 fL (7.4-10.4); MONOCYTES # (AUTO) 0.93 x10^3/uL (0.2-0.8); MONOCYTES % (AUTO) 10 % (2-9); NEUTROPHILS # (AUTO) 7.39 x10^3/uL (1.8-6.8); NEUTROPHILS % (AUTO) 81 % (42-75); PLATELET COUNT 325 x10^3/uL (130-400); RED BLOOD COUNT 3.42 x10^6/uL (4.38-5.82); RED CELL DISTRIBUTION WIDTH 20.8 % (9.4-14.8)
[2018-10-25 08:21] LABS: ALANINE AMINOTRANSFERASE 91 U/L (12-78); ALBUMIN 3.4 g/dL (3.4-5.0); ANION GAP 5 mmol/L (5-15); CHLORIDE 99 mmol/L (98-107)
[2018-10-25 08:24] LABS: ALKALINE PHOSPHATASE 106 U/L (45-117); BILIRUBIN,TOTAL 0.6 mg/dL (0.2-1.0); TOTAL PROTEIN 5.9 g/dL (6.4-8.2)
[2018-10-25] MEDS: APIXABAN 5 MG TABLET PO SCH ×2 (08:45→20:20)
[2018-10-25] MEDS: CLOPIDOGREL 75 MG TABLET PO SCH (08:45)
[2018-10-25] MEDS: FUROSEMIDE 40 MG TABLET PO SCH (08:45)
[2018-10-25] MEDS: LIOTHYRONINE 5 MCG TABLET PO SCH (08:45)
[2018-10-25] MEDS: LISINOPRIL 5 MG TABLET PO SCH (09:00)
[2018-10-25] MEDS: SPIRONOLACTONE 25 MG TABLET PO SCH (13:00)
[2018-10-25] MEDS: POLYETHYLENE GLYCOL 17 GM PACKET PO PRN (19:24)
[2018-10-26 04:07] LABS: BASOPHILS # (AUTO) 0.01 x10^3/uL (0-0.1); BASOPHILS % (AUTO) 0 % (0-1); EOSINOPHILS # (AUTO) 0.03 x10^3/uL (0-0.4); EOSINOPHILS % (AUTO) 0 % (1-7); LYMPHOCYTES # (AUTO) 0.82 x10^3/uL (1-3.4); LYMPHOCYTES % (AUTO) 8 % (22-44); MD NO; MEAN CORPUSCULAR HEMOGLOBIN 31.3 pg (27.5-34.5); MEAN CORPUSCULAR HGB CONC 33.4 g/dL (33.2-36.2); MEAN CORPUSCULAR VOLUME 93.8 fL (81-97); MEAN PLATELET VOLUME 8.1 fL (7.4-10.4); MONOCYTES # (AUTO) 1.05 x10^3/uL (0.2-0.8); MONOCYTES % (AUTO) 11 % (2-9); NEUTROPHILS # (AUTO) 7.95 x10^3/uL (1.8-6.8); NEUTROPHILS % (AUTO) 81 % (42-75); PLATELET COUNT 319 x10^3/uL (130-400); RED CELL DISTRIBUTION WIDTH 19.9 % (9.4-14.8)
[2018-10-26 04:16] LABS: ANION GAP 4 mmol/L (5-15); CALCIUM 9.4 mg/dL (8.5-10.1); CHLORIDE 102 mmol/L (98-107)
[2018-10-26] MEDS: CARVEDILOL 3.125 MG TABLET PO SCH ×2 (05:34→18:12)
[2018-10-26] MEDS: LEVOTHYROXINE 100 MCG TABLET PO SCH (05:34)
[2018-10-26 05:35] VITALS: BP 105/75
[2018-10-26] MEDS: LIOTHYRONINE 5 MCG TABLET PO SCH (08:56)
[2018-10-26] MEDS: CLOPIDOGREL 75 MG TABLET PO SCH (08:56)
[2018-10-26] MEDS: FUROSEMIDE 40 MG TABLET PO SCH (08:57)
[2018-10-26] MEDS: LISINOPRIL 5 MG TABLET PO SCH (08:57)
[2018-10-26] MEDS: APIXABAN 5 MG TABLET PO SCH ×2 (08:57→19:36)
[2018-10-26] MEDS: SODIUM CHLORIDE FLUSH 10ML SYR IVF SCH ×2 (09:00→19:36)
[2018-10-26] MEDS: POLYETHYLENE GLYCOL 17 GM PACKET PO PRN (13:15)
[2018-10-26] MEDS: SPIRONOLACTONE 25 MG TABLET PO SCH (13:17)
[2018-10-27] MEDS: CARVEDILOL 3.125 MG TABLET PO SCH ×2 (04:34→18:28)
[2018-10-27] MEDS: LEVOTHYROXINE 100 MCG TABLET PO SCH (04:35)
[2018-10-27 04:36] LABS: BASOPHILS # (AUTO) 0.04 x10^3/uL (0-0.1); BASOPHILS % (AUTO) 0 % (0-1); EOSINOPHILS # (AUTO) 0.12 x10^3/uL (0-0.4); EOSINOPHILS % (AUTO) 1 % (1-7); LYMPHOCYTES # (AUTO) 0.76 x10^3/uL (1-3.4); LYMPHOCYTES % (AUTO) 8 % (22-44); MD NO; MEAN CORPUSCULAR HEMOGLOBIN 31.4 pg (27.5-34.5); MEAN CORPUSCULAR HGB CONC 33.4 g/dL (33.2-36.2); MONOCYTES # (AUTO) 0.87 x10^3/uL (0.2-0.8); MONOCYTES % (AUTO) 9 % (2-9); NEUTROPHILS # (AUTO) 8.05 x10^3/uL (1.8-6.8); NEUTROPHILS % (AUTO) 82 % (42-75); PLATELET COUNT 340 x10^3/uL (130-400); RED BLOOD COUNT 3.56 x10^6/uL (4.38-5.82); RED CELL DISTRIBUTION WIDTH 19.8 % (9.4-14.8)
[2018-10-27 04:50] LABS: CHLORIDE 101 mmol/L (98-107)
[2018-10-27 04:56] LABS: ANION GAP 3 mmol/L (5-15); CREATININE 0.92 mg/dL (0.7-1.3)
[2018-10-27] MEDS: FUROSEMIDE 40 MG TABLET PO SCH (08:08)
[2018-10-27] MEDS: APIXABAN 5 MG TABLET PO SCH ×2 (08:08→19:13)
[2018-10-27] MEDS: LIOTHYRONINE 5 MCG TABLET PO SCH (08:08)
[2018-10-27] MEDS: CLOPIDOGREL 75 MG TABLET PO SCH (08:08)
[2018-10-27] MEDS: LISINOPRIL 5 MG TABLET PO SCH (08:08)
[2018-10-27] MEDS: SODIUM CHLORIDE FLUSH 10ML SYR IVF SCH ×2 (08:09→19:13)
[2018-10-27 10:40] LABS: TROPONIN I 0.043 ng/mL (0.000-0.045)
[2018-10-27] MEDS: POLYETHYLENE GLYCOL 17 GM PACKET PO PRN (13:02)
[2018-10-27] MEDS: SPIRONOLACTONE 25 MG TABLET PO SCH (13:03)
[2018-10-27] MEDS: FUROSEMIDE 40 MG/4 ML IV SCH (16:48)
[2018-10-27] MEDS: DIPHENHYDRAMINE 25 MG CAPSULE PO PRN (18:30)
[2018-10-28 04:57] LABS: BASOPHILS # (AUTO) 0.03 x10^3/uL (0-0.1); BASOPHILS % (AUTO) 0 % (0-1); EOSINOPHILS % (AUTO) 1 % (1-7); LYMPHOCYTES # (AUTO) 0.91 x10^3/uL (1-3.4); LYMPHOCYTES % (AUTO) 9 % (22-44); MD NO; MEAN CORPUSCULAR HEMOGLOBIN 31.3 pg (27.5-34.5); MEAN CORPUSCULAR HGB CONC 33.1 g/dL (33.2-36.2); MEAN CORPUSCULAR VOLUME 94.7 fL (81-97); MEAN PLATELET VOLUME 8.4 fL (7.4-10.4); MONOCYTES # (AUTO) 1.11 x10^3/uL (0.2-0.8); MONOCYTES % (AUTO) 11 % (2-9); NEUTROPHILS # (AUTO) 8.24 x10^3/uL (1.8-6.8); NEUTROPHILS % (AUTO) 79 % (42-75); PLATELET COUNT 345 x10^3/uL (130-400); RED BLOOD COUNT 3.44 x10^6/uL (4.38-5.82)
[2018-10-28 05:05] LABS: ANION GAP 4 mmol/L (5-15); CALCIUM 9.4 mg/dL (8.5-10.1); CHLORIDE 102 mmol/L (98-107)
[2018-10-28 05:06] LABS: CREATININE 0.88 mg/dL (0.7-1.3)
[2018-10-28] MEDS: LEVOTHYROXINE 100 MCG TABLET PO SCH (05:59)
[2018-10-28] MEDS: CARVEDILOL 3.125 MG TABLET PO SCH ×2 (05:59→17:49)
[2018-10-28] MEDS ORDERED: LIDODERM 5% PATCH TD PRN (08:30)
[2018-10-28] MEDS: FUROSEMIDE 40 MG/4 ML IV SCH (09:23)
[2018-10-28] MEDS: APIXABAN 5 MG TABLET PO SCH ×2 (09:23→21:40)
[2018-10-28] MEDS: CLOPIDOGREL 75 MG TABLET PO SCH (09:24)
[2018-10-28] MEDS: LIOTHYRONINE 5 MCG TABLET PO SCH (09:25)
[2018-10-28] MEDS: SODIUM CHLORIDE FLUSH 10ML SYR IVF SCH ×2 (09:25→21:00)
[2018-10-28] MEDS: LISINOPRIL 5 MG TABLET PO SCH (09:28)
[2018-10-28] MEDS: AcetaZOLAMIDE INJ 500 MG IVPush SCH ×2 (11:34→21:40)
[2018-10-28] MEDS: POLYETHYLENE GLYCOL 17 GM PACKET PO PRN (14:35)
[2018-10-28] MEDS: SPIRONOLACTONE 25 MG TABLET PO SCH (14:35)
[2018-10-28 17:46] VITALS: BP 116/76
[2018-10-28 21:28] VITALS: BP 112/73
[2018-10-28] MEDS: DIPHENHYDRAMINE 25 MG CAPSULE PO PRN (21:40)
[2018-10-29 01:02] VITALS: BP 104/63
[2018-10-29] MEDS: CARVEDILOL 3.125 MG TABLET PO SCH ×2 (05:52→18:00)
[2018-10-29] MEDS: LEVOTHYROXINE 100 MCG TABLET PO SCH (05:52)
[2018-10-29 05:55] LABS: BASOPHILS # (AUTO) 0.03 x10^3/uL (0-0.1); BASOPHILS % (AUTO) 0 % (0-1); EOSINOPHILS # (AUTO) 0.21 x10^3/uL (0-0.4); EOSINOPHILS % (AUTO) 2 % (1-7); LYMPHOCYTES # (AUTO) 0.87 x10^3/uL (1-3.4); LYMPHOCYTES % (AUTO) 10 % (22-44); MD NO; MEAN CORPUSCULAR HEMOGLOBIN 31.4 pg (27.5-34.5); MEAN CORPUSCULAR HGB CONC 33.3 g/dL (33.2-36.2); MEAN CORPUSCULAR VOLUME 94.3 fL (81-97); MEAN PLATELET VOLUME 7.9 fL (7.4-10.4); MONOCYTES # (AUTO) 1.07 x10^3/uL (0.2-0.8); MONOCYTES % (AUTO) 12 % (2-9); NEUTROPHILS # (AUTO) 6.64 x10^3/uL (1.8-6.8); NEUTROPHILS % (AUTO) 75 % (42-75); PLATELET COUNT 331 x10^3/uL (130-400); RED BLOOD COUNT 3.28 x10^6/uL (4.38-5.82); RED CELL DISTRIBUTION WIDTH 19.5 % (9.4-14.8)
[2018-10-29 06:04] LABS: ANION GAP 2 mmol/L (5-15); CHLORIDE 104 mmol/L (98-107); CREATININE 0.94 mg/dL (0.7-1.3)
[2018-10-29 09:11] VITALS: BP 106/69
[2018-10-29] MEDS: SODIUM CHLORIDE FLUSH 10ML SYR IVF SCH ×2 (10:05→21:15)
[2018-10-29] MEDS: AcetaZOLAMIDE INJ 500 MG IVPush SCH ×3 (10:06→21:15)
[2018-10-29] MEDS: CLOPIDOGREL 75 MG TABLET PO SCH (10:07)
[2018-10-29] MEDS: LIOTHYRONINE 5 MCG TABLET PO SCH (10:07)
[2018-10-29] MEDS: LISINOPRIL 5 MG TABLET PO SCH (10:09)
[2018-10-29] MEDS: APIXABAN 5 MG TABLET PO SCH ×2 (10:16→21:15)
[2018-10-29] MEDS: POLYETHYLENE GLYCOL 17 GM PACKET PO PRN (10:25)
[2018-10-29 12:45] VITALS: BP 107/69
[2018-10-29] MEDS: SPIRONOLACTONE 25 MG TABLET PO SCH (12:50)
[2018-10-29 17:59] VITALS: BP 116/75
[2018-10-29 20:30] VITALS: BP 106/69
[2018-10-29] MEDS: DIPHENHYDRAMINE 25 MG CAPSULE PO PRN (21:15)
[2018-10-30 00:54] VITALS: BP 90/58
[2018-10-30 06:24] LABS: ANION GAP 5 mmol/L (5-15); CALCIUM 9.2 mg/dL (8.5-10.1); CHLORIDE 105 mmol/L (98-107)
[2018-10-30 06:25] LABS: CREATININE 0.95 mg/dL (0.7-1.3)
[2018-10-30 06:42] VITALS: BP 99/64
[2018-10-30] MEDS: LEVOTHYROXINE 100 MCG TABLET PO SCH (06:44)
[2018-10-30] MEDS: CARVEDILOL 3.125 MG TABLET PO SCH ×3 (06:44→17:53)
[2018-10-30 08:49] VITALS: BP 104/71
[2018-10-30] MEDS: AcetaZOLAMIDE INJ 500 MG IVPush SCH ×2 (08:52→20:34)
[2018-10-30] MEDS: SODIUM CHLORIDE FLUSH 10ML SYR IVF SCH ×2 (08:54→20:35)
[2018-10-30] MEDS: CLOPIDOGREL 75 MG TABLET PO SCH (08:57)
[2018-10-30] MEDS: APIXABAN 5 MG TABLET PO SCH ×2 (08:57→20:34)
[2018-10-30] MEDS: LIOTHYRONINE 5 MCG TABLET PO SCH (08:57)
[2018-10-30] MEDS: POLYETHYLENE GLYCOL 17 GM PACKET PO SCH ×2 (08:58→20:34)
[2018-10-30] MEDS ORDERED: LIDOCAINE-MPF 1%, 5ML ONE (10:13)
[2018-10-30] MEDS: LISINOPRIL 5 MG TABLET PO SCH (10:30)
[2018-10-30] MEDS ORDERED: SILVER NITRATE STICK TP ONE (11:00)
[2018-10-30 11:13] VITALS: BP 96/62
[2018-10-30] MEDS: SOTALOL 80MG TABLET PO SCH ×2 (11:19→22:28)
[2018-10-30 13:54] VITALS: BP 102/67
[2018-10-30] MEDS: SPIRONOLACTONE 25 MG TABLET PO SCH (13:56)
[2018-10-30 19:38] VITALS: BP 102/65
[2018-10-31 01:26] VITALS: BP 95/64
[2018-10-31 05:50] LABS: BASOPHILS # (AUTO) 0.06 x10^3/uL (0-0.1); BASOPHILS % (AUTO) 1 % (0-1); EOSINOPHILS % (AUTO) 3 % (1-7); LYMPHOCYTES # (AUTO) 0.86 x10^3/uL (1-3.4); LYMPHOCYTES % (AUTO) 11 % (22-44); MD NO; MEAN CORPUSCULAR HEMOGLOBIN 30.7 pg (27.5-34.5); MEAN CORPUSCULAR HGB CONC 32.7 g/dL (33.2-36.2); MEAN CORPUSCULAR VOLUME 93.9 fL (81-97); MEAN PLATELET VOLUME 7.6 fL (7.4-10.4); MONOCYTES % (AUTO) 14 % (2-9); NEUTROPHILS # (AUTO) 5.65 x10^3/uL (1.8-6.8); NEUTROPHILS % (AUTO) 72 % (42-75); PLATELET COUNT 358 x10^3/uL (130-400); RED BLOOD COUNT 3.27 x10^6/uL (4.38-5.82); RED CELL DISTRIBUTION WIDTH 19.3 % (9.4-14.8)
[2018-10-31] MEDS: LEVOTHYROXINE 100 MCG TABLET PO SCH (05:59)
[2018-10-31 06:00] LABS: ANION GAP 3 mmol/L (5-15); CALCIUM 9.5 mg/dL (8.5-10.1); CHLORIDE 105 mmol/L (98-107); CREATININE 1.12 mg/dL (0.7-1.3)
[2018-10-31 07:27] VITALS: BP 94/61
[2018-10-31] MEDS: POLYETHYLENE GLYCOL 17 GM PACKET PO SCH ×2 (09:12→21:15)
[2018-10-31] MEDS: SOTALOL 80MG TABLET PO SCH ×2 (09:12→17:11)
[2018-10-31] MEDS: LIOTHYRONINE 5 MCG TABLET PO SCH (09:12)
[2018-10-31] MEDS: APIXABAN 5 MG TABLET PO SCH ×2 (09:12→21:15)
[2018-10-31] MEDS: CLOPIDOGREL 75 MG TABLET PO SCH (09:12)
[2018-10-31] MEDS: LISINOPRIL 5 MG TABLET PO SCH (09:13)
[2018-10-31] MEDS: AcetaZOLAMIDE INJ 500 MG IVPush SCH ×2 (09:14→21:17)
[2018-10-31] MEDS: SODIUM CHLORIDE FLUSH 10ML SYR IVF SCH ×2 (09:14→21:17)
[2018-10-31 13:33] VITALS: BP 98/65
[2018-10-31] MEDS: SPIRONOLACTONE 25 MG TABLET PO SCH (13:41)
[2018-10-31 19:00] VITALS: BP 90/55
[2018-11-01] VITALS (7 sets, daily range): BP systolic 89–99; BP diastolic 53–63
[2018-11-01] MEDS: LEVOTHYROXINE 100 MCG TABLET PO SCH (06:28)
[2018-11-01 07:57] LABS: ANION GAP 4 mmol/L (5-15); CALCIUM 9.6 mg/dL (8.5-10.1); CHLORIDE 105 mmol/L (98-107); CREATININE 1.02 mg/dL (0.7-1.3)
[2018-11-01] MEDS: LISINOPRIL 5 MG TABLET PO SCH (08:29)
[2018-11-01] MEDS: CLOPIDOGREL 75 MG TABLET PO SCH (08:30)
[2018-11-01] MEDS: LIOTHYRONINE 5 MCG TABLET PO SCH (08:30)
[2018-11-01] MEDS: APIXABAN 5 MG TABLET PO SCH ×2 (08:30→21:18)
[2018-11-01] MEDS: AcetaZOLAMIDE INJ 500 MG IVPush SCH ×2 (08:31→21:18)
[2018-11-01] MEDS: SOTALOL 80MG TABLET PO SCH ×2 (08:31→18:16)
[2018-11-01] MEDS: SODIUM CHLORIDE FLUSH 10ML SYR IVF SCH ×2 (08:33→21:18)
[2018-11-01] MEDS: POLYETHYLENE GLYCOL 17 GM PACKET PO SCH ×2 (12:00→18:16)
[2018-11-01] MEDS: SPIRONOLACTONE 25 MG TABLET PO SCH (13:00)
[2018-11-01] MEDS ORDERED: FENTANYL PF 100 MCG/2ML ONE ×2 (14:36→14:37)
[2018-11-01] MEDS ORDERED: MIDAZOLAM 1 MG/ML, 5ML ONE ×2 (14:37)
[2018-11-01] MEDS ORDERED: NALOXONE 1 MG/ML, 2ML ONE (14:38)
[2018-11-01] MEDS ORDERED: FLUMAZENIL 0.1 MG/1 ML, 5ML ONE (14:38)
[2018-11-01] MEDS ORDERED: LIDOCAINE 1%, 20ML ONE (14:40)
[2018-11-02] VITALS (8 sets, daily range): BP systolic 72–102; BP diastolic 43–69
[2018-11-02] MEDS: LEVOTHYROXINE 100 MCG TABLET PO SCH (05:44)
[2018-11-02] MEDS: SOTALOL 80MG TABLET PO SCH ×2 (05:45→17:22)
[2018-11-02] MEDS ORDERED: MORPHINE SULFATE 4 MG/ML, 1ML IVPush PRN (08:00)
[2018-11-02] MEDS ORDERED: OXYcodone IR 5MG TABLET PO PRN (08:00)
[2018-11-02] MEDS: LIOTHYRONINE 5 MCG TABLET PO SCH (08:33)
[2018-11-02] MEDS: CLOPIDOGREL 75 MG TABLET PO SCH (08:33)
[2018-11-02] MEDS: APIXABAN 5 MG TABLET PO SCH ×2 (08:33→21:03)
[2018-11-02] MEDS: AcetaZOLAMIDE INJ 500 MG IVPush SCH ×2 (08:35→21:00)
[2018-11-02] MEDS: POLYETHYLENE GLYCOL 17 GM PACKET PO SCH ×2 (08:35→21:00)
[2018-11-02] MEDS: LISINOPRIL 5 MG TABLET PO SCH (08:36)
[2018-11-02] MEDS: SODIUM CHLORIDE FLUSH 10ML SYR IVF SCH ×2 (09:00→21:05)
[2018-11-02] MEDS: OXYcodone IR 5MG TABLET PO SCH ×3 (09:00→21:03)
[2018-11-02] MEDS: SPIRONOLACTONE 25 MG TABLET PO SCH (13:00)
[2018-11-02] MEDS: MIRTAZAPINE 15 MG TABLET PO SCH (21:00)
[2018-11-03] VITALS (8 sets, daily range): BP systolic 90–96; BP diastolic 47–62
[2018-11-03 05:29] LABS: BASOPHILS # (AUTO) 0.02 x10^3/uL (0-0.1); BASOPHILS % (AUTO) 0 % (0-1); EOSINOPHILS # (AUTO) 0.31 x10^3/uL (0-0.4); EOSINOPHILS % (AUTO) 3 % (1-7); LYMPHOCYTES # (AUTO) 0.77 x10^3/uL (1-3.4); LYMPHOCYTES % (AUTO) 9 % (22-44); MD NO; MEAN CORPUSCULAR HEMOGLOBIN 30.8 pg (27.5-34.5); MEAN CORPUSCULAR HGB CONC 32.9 g/dL (33.2-36.2); MEAN CORPUSCULAR VOLUME 93.4 fL (81-97); MEAN PLATELET VOLUME 7.7 fL (7.4-10.4); MONOCYTES # (AUTO) 0.88 x10^3/uL (0.2-0.8); MONOCYTES % (AUTO) 10 % (2-9); NEUTROPHILS # (AUTO) 7.05 x10^3/uL (1.8-6.8); NEUTROPHILS % (AUTO) 78 % (42-75); PLATELET COUNT 333 x10^3/uL (130-400); RED BLOOD COUNT 3.39 x10^6/uL (4.38-5.82); RED CELL DISTRIBUTION WIDTH 19.3 % (9.4-14.8)
[2018-11-03 05:33] LABS: CHLORIDE 105 mmol/L (98-107)
[2018-11-03 05:40] LABS: ANION GAP 3 mmol/L (5-15); CALCIUM 9.2 mg/dL (8.5-10.1)
[2018-11-03] MEDS: LEVOTHYROXINE 100 MCG TABLET PO SCH (06:15)
[2018-11-03] MEDS: SOTALOL 80MG TABLET PO SCH ×2 (06:16→18:00)
[2018-11-03] MEDS: LISINOPRIL 5 MG TABLET PO SCH (08:10)
[2018-11-03] MEDS: AcetaZOLAMIDE INJ 500 MG IVPush SCH ×2 (08:10→20:34)
[2018-11-03] MEDS: CLOPIDOGREL 75 MG TABLET PO SCH (08:51)
[2018-11-03] MEDS: APIXABAN 5 MG TABLET PO SCH ×2 (08:51→20:34)
[2018-11-03] MEDS: SENNA/DOCUSATE TABLET PO SCH (08:52)
[2018-11-03] MEDS: LIOTHYRONINE 5 MCG TABLET PO SCH (08:52)
[2018-11-03] MEDS: OXYcodone IR 5MG TABLET PO SCH ×3 (08:53→20:35)
[2018-11-03] MEDS: SODIUM CHLORIDE FLUSH 10ML SYR IVF SCH ×2 (08:53→20:34)
[2018-11-03] MEDS: POLYETHYLENE GLYCOL 17 GM PACKET PO SCH ×2 (08:53→20:35)
[2018-11-03] MEDS: SPIRONOLACTONE 25 MG TABLET PO SCH (13:30)
[2018-11-03] MEDS: POLYETHYLENE GLYCOL 17 GM PACKET PO PRN (13:43)
[2018-11-03] MEDS: MIRTAZAPINE 15 MG TABLET PO SCH (20:35)
[2018-11-04] VITALS (7 sets, daily range): BP systolic 86–108; BP diastolic 52–64
[2018-11-04 04:58] LABS: BASOPHILS # (AUTO) 0.11 x10^3/uL (0-0.1); BASOPHILS % (AUTO) 1 % (0-1); EOSINOPHILS # (AUTO) 0.42 x10^3/uL (0-0.4); EOSINOPHILS % (AUTO) 3 % (1-7); LYMPHOCYTES # (AUTO) 0.82 x10^3/uL (1-3.4); LYMPHOCYTES % (AUTO) 7 % (22-44); MD NO; MEAN CORPUSCULAR HEMOGLOBIN 30.8 pg (27.5-34.5); MEAN CORPUSCULAR HGB CONC 33.1 g/dL (33.2-36.2); MONOCYTES # (AUTO) 0.91 x10^3/uL (0.2-0.8); MONOCYTES % (AUTO) 7 % (2-9); NEUTROPHILS # (AUTO) 10.11 x10^3/uL (1.8-6.8); NEUTROPHILS % (AUTO) 82 % (42-75); PLATELET COUNT 370 x10^3/uL (130-400); RED BLOOD COUNT 3.68 x10^6/uL (4.38-5.82); RED CELL DISTRIBUTION WIDTH 19.1 % (9.4-14.8)
[2018-11-04 05:13] LABS: ANION GAP 3 mmol/L (5-15); CALCIUM 9.2 mg/dL (8.5-10.1); CHLORIDE 102 mmol/L (98-107)
[2018-11-04 05:15] LABS: CREATININE 0.92 mg/dL (0.7-1.3)
[2018-11-04] MEDS: LEVOTHYROXINE 100 MCG TABLET PO SCH (06:35)
[2018-11-04] MEDS: AcetaZOLAMIDE INJ 500 MG IVPush SCH ×2 (07:57→20:21)
[2018-11-04] MEDS: OXYcodone IR 5MG TABLET PO SCH ×3 (07:57→20:22)
[2018-11-04] MEDS: LISINOPRIL 5 MG TABLET PO SCH (07:57)
[2018-11-04] MEDS: POLYETHYLENE GLYCOL 17 GM PACKET PO SCH ×2 (08:39→20:22)
[2018-11-04] MEDS: CLOPIDOGREL 75 MG TABLET PO SCH (08:39)
[2018-11-04] MEDS: SOTALOL 80MG TABLET PO SCH ×2 (08:39→17:57)
[2018-11-04] MEDS: APIXABAN 5 MG TABLET PO SCH ×2 (08:39→20:21)
[2018-11-04] MEDS: SODIUM CHLORIDE FLUSH 10ML SYR IVF SCH ×2 (08:40→20:19)
[2018-11-04] MEDS: LIOTHYRONINE 5 MCG TABLET PO SCH (08:40)
[2018-11-04] MEDS: SENNA/DOCUSATE TABLET PO SCH (08:40)
[2018-11-04] MEDS: SPIRONOLACTONE 25 MG TABLET PO SCH (13:16)
[2018-11-04] MEDS: MIRTAZAPINE 15 MG TABLET PO SCH (20:22)
[2018-11-05 01:42] VITALS: BP 97/62
[2018-11-05] MEDS: SOTALOL 80MG TABLET PO SCH ×2 (05:58→18:27)
[2018-11-05] MEDS: LEVOTHYROXINE 100 MCG TABLET PO SCH (05:58)
[2018-11-05 08:07] VITALS: BP 100/65
[2018-11-05 10:11] VITALS: BP 103/63
[2018-11-05] MEDS: OXYcodone IR 5MG TABLET PO SCH ×3 (10:11→21:00)
[2018-11-05] MEDS: LIOTHYRONINE 5 MCG TABLET PO SCH (10:14)
[2018-11-05] MEDS: CLOPIDOGREL 75 MG TABLET PO SCH (10:14)
[2018-11-05] MEDS: APIXABAN 5 MG TABLET PO SCH ×2 (10:15→19:42)
[2018-11-05] MEDS: AcetaZOLAMIDE INJ 500 MG IVPush SCH ×2 (10:15→19:41)
[2018-11-05] MEDS: POLYETHYLENE GLYCOL 17 GM PACKET PO SCH ×2 (10:16→19:42)
[2018-11-05] MEDS: SENNA/DOCUSATE TABLET PO SCH (10:16)
[2018-11-05] MEDS: SODIUM CHLORIDE FLUSH 10ML SYR IVF SCH ×2 (10:16→19:41)
[2018-11-05 12:35] VITALS: BP 96/62
[2018-11-05] MEDS: LISINOPRIL 5 MG TABLET PO SCH (12:36)
[2018-11-05] MEDS: SPIRONOLACTONE 25 MG TABLET PO SCH (12:36)
[2018-11-05 18:15] VITALS: BP 94/58
[2018-11-05 18:53] VITALS: BP 108/69
[2018-11-05] MEDS: MIRTAZAPINE 15 MG TABLET PO SCH (21:00)
[2018-11-06 02:28] VITALS: BP 92/50
[2018-11-06] MEDS: SOTALOL 80MG TABLET PO SCH ×2 (05:31→17:47)
[2018-11-06] MEDS: LEVOTHYROXINE 100 MCG TABLET PO SCH (05:31)
[2018-11-06 07:35] VITALS: BP 100/62
[2018-11-06 10:03] VITALS: BP 90/58
[2018-11-06] MEDS: AcetaZOLAMIDE INJ 500 MG IVPush SCH ×2 (10:04→21:12)
[2018-11-06] MEDS: LISINOPRIL 5 MG TABLET PO SCH (10:05)
[2018-11-06] MEDS: OXYcodone IR 5MG TABLET PO SCH ×3 (10:05→21:08)
[2018-11-06] MEDS: POLYETHYLENE GLYCOL 17 GM PACKET PO SCH ×2 (10:06→21:08)
[2018-11-06] MEDS: APIXABAN 5 MG TABLET PO SCH ×2 (10:06→21:06)
[2018-11-06] MEDS: SENNA/DOCUSATE TABLET PO SCH (10:06)
[2018-11-06] MEDS: LIOTHYRONINE 5 MCG TABLET PO SCH (10:06)
[2018-11-06] MEDS: SODIUM CHLORIDE FLUSH 10ML SYR IVF SCH ×2 (10:07→21:10)
[2018-11-06] MEDS: CLOPIDOGREL 75 MG TABLET PO SCH (10:07)
[2018-11-06 13:24] VITALS: BP 102/65
[2018-11-06] MEDS: SPIRONOLACTONE 25 MG TABLET PO SCH (13:46)
[2018-11-06 17:46] VITALS: BP 102/65
[2018-11-06 18:48] VITALS: BP 113/75
[2018-11-06] MEDS: MIRTAZAPINE 15 MG TABLET PO SCH (21:08)
[2018-11-07 01:29] VITALS: BP 117/70
[2018-11-07 06:12] VITALS: BP 108/64
[2018-11-07] MEDS: LEVOTHYROXINE 100 MCG TABLET PO SCH (06:14)
[2018-11-07] MEDS: SOTALOL 80MG TABLET PO SCH ×2 (06:14→18:02)
[2018-11-07] MEDS ORDERED: DAKIN'S SOLUTION 1/4 STRENGTH 1,000 ML IRRIG SOLN EXT SCH (09:00)
[2018-11-07] MEDS ORDERED: DAKIN'S SOLUTION 1/4 STRENGTH 1,000 ML IRRIG SOLN EXT PRN (09:00)
[2018-11-07] MEDS: POLYETHYLENE GLYCOL 17 GM PACKET PO SCH ×2 (10:08→20:43)
[2018-11-07] MEDS: SENNA/DOCUSATE TABLET PO SCH (10:08)
[2018-11-07] MEDS: SODIUM CHLORIDE FLUSH 10ML SYR IVF SCH ×2 (10:08→20:43)
[2018-11-07] MEDS: LISINOPRIL 5 MG TABLET PO SCH (10:09)
[2018-11-07] MEDS: CLOPIDOGREL 75 MG TABLET PO SCH (10:09)
[2018-11-07] MEDS: APIXABAN 5 MG TABLET PO SCH ×2 (10:09→20:43)
[2018-11-07] MEDS: OXYcodone IR 5MG TABLET PO SCH ×3 (10:12→20:44)
[2018-11-07 11:34] VITALS: BP 92/62
[2018-11-07] MEDS: LIOTHYRONINE 5 MCG TABLET PO SCH (11:38)
[2018-11-07] MEDS: AcetaZOLAMIDE INJ 500 MG IVPush SCH ×2 (11:39→20:43)
[2018-11-07 13:33] VITALS: BP 100/61
[2018-11-07] MEDS: SPIRONOLACTONE 25 MG TABLET PO SCH (14:46)
[2018-11-07 14:47] VITALS: BP 91/62
[2018-11-07 18:59] VITALS: BP 123/68
[2018-11-08 01:06] VITALS: BP 99/59
[2018-11-08] MEDS: LEVOTHYROXINE 100 MCG TABLET PO SCH (06:15)
[2018-11-08] MEDS: SOTALOL 80MG TABLET PO SCH ×2 (06:15→18:04)
[2018-11-08 06:33] VITALS: BP 108/66
[2018-11-08] MEDS: SODIUM CHLORIDE FLUSH 10ML SYR IVF SCH ×2 (09:22→20:29)
[2018-11-08] MEDS: AcetaZOLAMIDE INJ 500 MG IVPush SCH ×2 (09:22→20:31)
[2018-11-08] MEDS: APIXABAN 5 MG TABLET PO SCH ×2 (09:23→20:28)
[2018-11-08] MEDS: POLYETHYLENE GLYCOL 17 GM PACKET PO SCH ×2 (09:23→20:28)
[2018-11-08] MEDS: LISINOPRIL 5 MG TABLET PO SCH (09:23)
[2018-11-08] MEDS: LIOTHYRONINE 5 MCG TABLET PO SCH (09:23)
[2018-11-08] MEDS: SENNA/DOCUSATE TABLET PO SCH (09:24)
[2018-11-08] MEDS: CLOPIDOGREL 75 MG TABLET PO SCH (11:18)
[2018-11-08] MEDS: OXYcodone IR 5MG TABLET PO SCH ×3 (11:47→20:29)
[2018-11-08 12:05] VITALS: BP 97/61
[2018-11-08] MEDS ORDERED: GADOBUTROL 7.5 MMOL/7.5 ML PFS ONE (14:50)
[2018-11-08] MEDS: SPIRONOLACTONE 25 MG TABLET PO SCH (15:33)
[2018-11-08 17:45] VITALS: BP 101/68
[2018-11-08 19:20] VITALS: BP 95/55
[2018-11-08 20:32] VITALS: BP 91/55
[2018-11-09] VITALS (10 sets, daily range): BP systolic 84–170; BP diastolic 53–109
[2018-11-09] MEDS: SOTALOL 80MG TABLET PO SCH ×2 (06:31→17:42)
[2018-11-09] MEDS: LEVOTHYROXINE 100 MCG TABLET PO SCH (06:31)
[2018-11-09] MEDS: LIOTHYRONINE 5 MCG TABLET PO SCH (09:00)
[2018-11-09] MEDS: LISINOPRIL 5 MG TABLET PO SCH (09:00)
[2018-11-09] MEDS: POLYETHYLENE GLYCOL 17 GM PACKET PO SCH ×2 (09:00→20:45)
[2018-11-09] MEDS: CLOPIDOGREL 75 MG TABLET PO SCH (09:00)
[2018-11-09] MEDS: AcetaZOLAMIDE INJ 500 MG IVPush SCH ×2 (09:00→20:44)
[2018-11-09] MEDS: OXYcodone IR 5MG TABLET PO SCH ×3 (09:00→20:45)
[2018-11-09] MEDS: APIXABAN 5 MG TABLET PO SCH ×2 (09:00→20:45)
[2018-11-09] MEDS: SENNA/DOCUSATE TABLET PO SCH (09:00)
[2018-11-09] MEDS: SODIUM CHLORIDE FLUSH 10ML SYR IVF SCH ×2 (09:01→20:44)
[2018-11-09] MEDS: SPIRONOLACTONE 25 MG TABLET PO SCH (13:00)
[2018-11-10] VITALS (7 sets, daily range): BP systolic 87–103; BP diastolic 53–65
[2018-11-10] MEDS: LEVOTHYROXINE 100 MCG TABLET PO SCH (06:08)
[2018-11-10] MEDS: SOTALOL 80MG TABLET PO SCH ×2 (06:08→16:27)
[2018-11-10] MEDS: SENNA/DOCUSATE TABLET PO SCH (07:46)
[2018-11-10] MEDS: POLYETHYLENE GLYCOL 17 GM PACKET PO SCH ×2 (07:46→16:27)
[2018-11-10] MEDS: LISINOPRIL 5 MG TABLET PO SCH (07:47)
[2018-11-10] MEDS: OXYcodone IR 5MG TABLET PO SCH ×3 (09:00→20:27)
[2018-11-10] MEDS: CLOPIDOGREL 75 MG TABLET PO SCH (09:11)
[2018-11-10] MEDS: SODIUM CHLORIDE FLUSH 10ML SYR IVF SCH ×2 (09:11→20:27)
[2018-11-10] MEDS: APIXABAN 5 MG TABLET PO SCH ×2 (09:11→20:26)
[2018-11-10] MEDS: LIOTHYRONINE 5 MCG TABLET PO SCH (09:11)
[2018-11-10] MEDS: AcetaZOLAMIDE INJ 500 MG IVPush SCH ×2 (09:15→20:26)
[2018-11-10] MEDS: SPIRONOLACTONE 25 MG TABLET PO SCH (13:00)
[2018-11-11 01:09] VITALS: BP 92/56
[2018-11-11] MEDS: LEVOTHYROXINE 100 MCG TABLET PO SCH (06:52)
[2018-11-11] MEDS: SOTALOL 80MG TABLET PO SCH ×2 (06:52→17:32)
[2018-11-11] MEDS: APIXABAN 5 MG TABLET PO SCH ×2 (08:28→21:50)
[2018-11-11] MEDS: SENNA/DOCUSATE TABLET PO SCH (08:28)
[2018-11-11] MEDS: POLYETHYLENE GLYCOL 17 GM PACKET PO SCH ×2 (08:28→21:00)
[2018-11-11] MEDS: LIOTHYRONINE 5 MCG TABLET PO SCH (08:28)
[2018-11-11] MEDS: CLOPIDOGREL 75 MG TABLET PO SCH (08:28)
[2018-11-11] MEDS: SODIUM CHLORIDE FLUSH 10ML SYR IVF SCH ×2 (08:29→21:51)
[2018-11-11] MEDS: AcetaZOLAMIDE INJ 500 MG IVPush SCH ×2 (08:29→21:51)
[2018-11-11] MEDS: OXYcodone IR 5MG TABLET PO SCH ×3 (08:29→21:00)
[2018-11-11 08:30] VITALS: BP 120/78
[2018-11-11] MEDS: LISINOPRIL 5 MG TABLET PO SCH (12:56)
[2018-11-11] MEDS: SPIRONOLACTONE 25 MG TABLET PO SCH (12:57)
[2018-11-11 13:10] VITALS: BP 97/64
[2018-11-11 20:06] VITALS: BP 103/64
[2018-11-11 22:46] VITALS: BP 94/54
[2018-11-12] VITALS (8 sets, daily range): BP systolic 90–105; BP diastolic 54–69
[2018-11-12] MEDS: LEVOTHYROXINE 100 MCG TABLET PO SCH (05:47)
[2018-11-12] MEDS: SOTALOL 80MG TABLET PO SCH ×2 (05:48→18:36)
[2018-11-12] MEDS ORDERED: FUROSEMIDE 20 MG TABLET PO SCH ×2 (07:30→08:30)
[2018-11-12] MEDS: SENNA/DOCUSATE TABLET PO SCH (08:46)
[2018-11-12] MEDS: APIXABAN 5 MG TABLET PO SCH ×2 (08:46→21:28)
[2018-11-12] MEDS: CLOPIDOGREL 75 MG TABLET PO SCH (08:46)
[2018-11-12] MEDS: LIOTHYRONINE 5 MCG TABLET PO SCH (08:46)
[2018-11-12] MEDS: OXYcodone IR 5MG TABLET PO SCH ×3 (08:46→19:25)
[2018-11-12] MEDS: LISINOPRIL 5 MG TABLET PO SCH (08:46)
[2018-11-12] MEDS: SODIUM CHLORIDE FLUSH 10ML SYR IVF SCH ×2 (08:47→21:29)
[2018-11-12] MEDS: FUROSEMIDE 40 MG TABLET PO SCH ×2 (09:37→17:38)
[2018-11-12] MEDS: POLYETHYLENE GLYCOL 17 GM PACKET PO SCH ×2 (09:37→19:25)
[2018-11-12] MEDS: SPIRONOLACTONE 25 MG TABLET PO SCH (14:03)
[2018-11-13] VITALS (9 sets, daily range): BP systolic 83–109; BP diastolic 53–70
[2018-11-13 05:43] LABS: BASOPHILS # (AUTO) 0.05 x10^3/uL (0-0.1); BASOPHILS % (AUTO) 1 % (0-1); EOSINOPHILS # (AUTO) 0.48 x10^3/uL (0-0.4); EOSINOPHILS % (AUTO) 5 % (1-7); LYMPHOCYTES # (AUTO) 0.98 x10^3/uL (1-3.4); LYMPHOCYTES % (AUTO) 10 % (22-44); MD NO; MEAN CORPUSCULAR HEMOGLOBIN 31.1 pg (27.5-34.5); MEAN CORPUSCULAR HGB CONC 33.5 g/dL (33.2-36.2); MEAN CORPUSCULAR VOLUME 92.8 fL (81-97); MEAN PLATELET VOLUME 7.5 fL (7.4-10.4); MONOCYTES # (AUTO) 1.12 x10^3/uL (0.2-0.8); MONOCYTES % (AUTO) 11 % (2-9); NEUTROPHILS # (AUTO) 7.73 x10^3/uL (1.8-6.8); NEUTROPHILS % (AUTO) 75 % (42-75); PLATELET COUNT 343 x10^3/uL (130-400); RED BLOOD COUNT 3.94 x10^6/uL (4.38-5.82); RED CELL DISTRIBUTION WIDTH 17.7 % (9.4-14.8)
[2018-11-13 05:52] LABS: ANION GAP 7 mmol/L (5-15); CALCIUM 9.3 mg/dL (8.5-10.1); CHLORIDE 106 mmol/L (98-107)
[2018-11-13] MEDS: LEVOTHYROXINE 100 MCG TABLET PO SCH (05:59)
[2018-11-13] MEDS: OXYcodone IR 5MG TABLET PO SCH ×3 (09:00→21:39)
[2018-11-13] MEDS: SODIUM CHLORIDE FLUSH 10ML SYR IVF SCH ×2 (09:00→21:39)
[2018-11-13] MEDS: LIOTHYRONINE 5 MCG TABLET PO SCH (09:30)
[2018-11-13] MEDS: SENNA/DOCUSATE TABLET PO SCH (09:30)
[2018-11-13] MEDS: CLOPIDOGREL 75 MG TABLET PO SCH (09:30)
[2018-11-13] MEDS: POLYETHYLENE GLYCOL 17 GM PACKET PO SCH ×2 (09:30→21:39)
[2018-11-13] MEDS: APIXABAN 5 MG TABLET PO SCH ×2 (09:30→21:38)
[2018-11-13] MEDS: FUROSEMIDE 40 MG TABLET PO SCH (09:30)
[2018-11-13] MEDS: SOTALOL 80MG TABLET PO SCH ×2 (09:30→23:43)
[2018-11-13] MEDS: LISINOPRIL 5 MG TABLET PO SCH (11:00)
[2018-11-13] MEDS: SPIRONOLACTONE 25 MG TABLET PO SCH (12:58)
[2018-11-14 01:14] VITALS: BP 94/54
[2018-11-14 06:01] LABS: HCT (SEDRATE) 35.8 % (39.2-51.8)
[2018-11-14 06:02] LABS: BASOPHILS # (AUTO) 0.05 x10^3/uL (0-0.1); BASOPHILS % (AUTO) 1 % (0-1); EOSINOPHILS # (AUTO) 0.29 x10^3/uL (0-0.4); EOSINOPHILS % (AUTO) 3 % (1-7); LYMPHOCYTES # (AUTO) 1.07 x10^3/uL (1-3.4); LYMPHOCYTES % (AUTO) 11 % (22-44); MD NO; MEAN CORPUSCULAR HEMOGLOBIN 30.2 pg (27.5-34.5); MEAN CORPUSCULAR HGB CONC 32.6 g/dL (33.2-36.2); MEAN CORPUSCULAR VOLUME 92.7 fL (81-97); MEAN PLATELET VOLUME 7.5 fL (7.4-10.4); MONOCYTES # (AUTO) 1.14 x10^3/uL (0.2-0.8); MONOCYTES % (AUTO) 12 % (2-9); NEUTROPHILS # (AUTO) 7.26 x10^3/uL (1.8-6.8); NEUTROPHILS % (AUTO) 74 % (42-75); PLATELET COUNT 374 x10^3/uL (130-400); RED BLOOD COUNT 3.85 x10^6/uL (4.38-5.82); RED CELL DISTRIBUTION WIDTH 17.9 % (9.4-14.8)
[2018-11-14 06:11] LABS: ALANINE AMINOTRANSFERASE 43 U/L (12-78); ALBUMIN 2.7 g/dL (3.4-5.0); ANION GAP 4 mmol/L (5-15); CHLORIDE 107 mmol/L (98-107); CREATININE 0.82 mg/dL (0.7-1.3)
[2018-11-14 06:17] LABS: ALKALINE PHOSPHATASE 94 U/L (45-117); BILIRUBIN,TOTAL 0.3 mg/dL (0.2-1.0); PREALBUMIN 21.1 mg/dL (20.0-40.0); TOTAL PROTEIN 5.9 g/dL (6.4-8.2)
[2018-11-14 06:28] VITALS: BP 100/70
[2018-11-14] MEDS: SOTALOL 80MG TABLET PO SCH (06:30)
[2018-11-14] MEDS: LEVOTHYROXINE 100 MCG TABLET PO SCH (06:30)
[2018-11-14 08:00] VITALS: BP_SYST 85; BP_SYST 92; BP_DIAS 57; BP_DIAS 58
[2018-11-14 08:19] VITALS: BP 97/69
[2018-11-14] MEDS: FUROSEMIDE 40 MG TABLET PO SCH (09:00)
[2018-11-14] MEDS: OXYcodone IR 5MG TABLET PO SCH (09:00)
[2018-11-14] MEDS: LIOTHYRONINE 5 MCG TABLET PO SCH (09:00)
[2018-11-14] MEDS: LISINOPRIL 5 MG TABLET PO SCH (09:00)
[2018-11-14] MEDS ORDERED: FURO40TA6 PO (09:17)
[2018-11-14] MEDS ORDERED: LEVO100T PO (09:17)
[2018-11-14] MEDS ORDERED: LISI5TAB7 PO (09:17)
[2018-11-14] MEDS ORDERED: SPIR25TA PO (09:17)
[2018-11-14] MEDS ORDERED: SOTA80TA18 PO (09:17)
[2018-11-14] MEDS: SODIUM CHLORIDE FLUSH 10ML SYR IVF SCH (09:27)
[2018-11-14] MEDS: POLYETHYLENE GLYCOL 17 GM PACKET PO SCH (09:28)
[2018-11-14] MEDS: SENNA/DOCUSATE TABLET PO SCH (09:28)
[2018-11-14] MEDS: APIXABAN 5 MG TABLET PO SCH (09:29)
[2018-11-14] MEDS: CLOPIDOGREL 75 MG TABLET PO SCH (09:29)
[2018-11-14] MEDS: SPIRONOLACTONE 25 MG TABLET PO SCH (13:00)
[2018-11-14 13:47] VITALS: BP 97/63
== END 2018-11-14 14:20 | disposition home health service (06) | DRG 273 ==
LOC: CACL 10:34 → ORIP 13:33 → CCU 14:10 → 5SO 10-14 17:28 → CCU 10-23 16:46 → 5SO 10-28 17:41 → DCLOUNGE 11-14 14:11
PROVIDERS: ADMIT Internal Medicine Cardiovascular Disease; ATTEND Internal Medicine Cardiovascular Disease
PROC: 0W993ZZ Drainage of Right Pleural Cavity, Percutaneous Approach (ICD-10-PCS; 2018-10-11)
PROC: 5A2204Z Restoration of Cardiac Rhythm, Single (ICD-10-PCS; principal; 2018-10-13)
PROC: 0W993ZZ Drainage of Right Pleural Cavity, Percutaneous Approach (ICD-10-PCS; 2018-10-21)
PROC: 0W9B3ZZ Drainage of Left Pleural Cavity, Percutaneous Approach (ICD-10-PCS; 2018-10-21)
PROC: 02583ZZ Destruction of Conduction Mechanism, Percutaneous Approach (ICD-10-PCS; 2018-10-23)
PROC: 02K83ZZ Map Conduction Mechanism, Percutaneous Approach (ICD-10-PCS; 2018-10-23)
PROC: 4A023FZ Measurement of Cardiac Rhythm, Percutaneous Approach (ICD-10-PCS; 2018-10-23)
PROC: 4A0234Z Measurement of Cardiac Electrical Activity, Percutaneous Approach (ICD-10-PCS; 2018-10-23)
PROC: 5A09357 Assistance with Respiratory Ventilation, Less than 24 Consecutive Hours, Continuous Positive Airway Pressure (ICD-10-PCS; 2018-10-23)
PROC: 0W993ZZ Drainage of Right Pleural Cavity, Percutaneous Approach (ICD-10-PCS; 2018-10-24)
PROC: 0W993ZZ Drainage of Right Pleural Cavity, Percutaneous Approach (ICD-10-PCS; 2018-10-30)
PROC: 0W9930Z Drainage of Right Pleural Cavity with Drainage Device, Percutaneous Approach (ICD-10-PCS; 2018-11-01)
PROC: 0W9B30Z Drainage of Left Pleural Cavity with Drainage Device, Percutaneous Approach (ICD-10-PCS; 2018-11-01)
DX: I13.0 Hypertensive heart and chronic kidney disease with heart failure and stage 1 through stage 4 chronic kidney disease, or unspecified chronic kidney disease (principal); I50.23 Acute on chronic systolic (congestive) heart failure; E43 Unspecified severe protein-calorie malnutrition; J96.20 Acute and chronic respiratory failure, unspecified whether with hypoxia or hypercapnia; J90 Pleural effusion, not elsewhere classified; D68.69 Other thrombophilia; E87.3 Alkalosis; I48.3 Typical atrial flutter; J98.11 Atelectasis; N25.81 Secondary hyperparathyroidism of renal origin; I48.91 Unspecified atrial fibrillation; E03.9 Hypothyroidism, unspecified; E55.9 Vitamin D deficiency, unspecified; I25.10 Atherosclerotic heart disease of native coronary artery without angina pectoris; I25.2 Old myocardial infarction; I25.5 Ischemic cardiomyopathy; L89.159 Pressure ulcer of sacral region, unspecified stage; N18.9 Chronic kidney disease, unspecified; R62.7 Adult failure to thrive; Z79.01 Long term (current) use of anticoagulants; Z82.49 Family history of ischemic heart disease and other diseases of the circulatory system; Z86.74 Personal history of sudden cardiac arrest; Z87.891 Personal history of nicotine dependence; Z95.1 Presence of aortocoronary bypass graft; I34.0 Nonrheumatic mitral (valve) insufficiency; Z68.22 Body mass index [BMI] 22.0-22.9, adult
CPT/HCPCS: 0399T; 32555; 32557; 36415; 36600; 71045; 71046; 71250; 72197; 80048; 80053; 82040; 82306; 82533; 82803; 83735; 84100; 84134; 84439; 84443; 84481; 84484; 85014; 85018; 85025; 85520; 85610; 85651; 87070; 87077; 87081; 87186; 87205; 88112; 88305; 88341; 88342; 89051; 92960; 93005; 93306; 93308; 93312; 93321; 93325; 93613; 93653; 93922; 93970; 94660; 97162; A9585; C1731; C1732; C1894; G0378; J0153; J1100; J1644; J1940; J2250; J2704; J2710; J3010; J3490; P9047; 29580-50; 29581-50; C1729; C1730; C1769; J0282; J1120; J2310; J2370; Q0163

== ENCOUNTER → 2020-05-07 | Outpatient (CLI) | payer MEDICARE ==
[~2020-05-07] MED LIST changes: +CIPR500T3 PO; +FURO-93 PO; +FURO40TA6 PO; +LEVO100T PO; +LISI5TAB7 PO; +MELA3TAB31 PO; +MULT-257 PO; +OXYC5CAP2 PO; +REGADENOSON 0.4 MG/5 ML SYRINGE ONE; +SOTA80TA18 PO; +SPIR25TA PO
== END | disposition home or self-care (01) ==
LOC: CVU 06:46
PROVIDERS: ATTEND Internal Medicine Cardiovascular Disease
DX: I08.0 Rheumatic disorders of both mitral and aortic valves (principal); R07.89 Other chest pain; I42.9 Cardiomyopathy, unspecified
CPT/HCPCS: 78452; 93017; 93306; 93356; A9502; J2785